=== PATIENT | female | born 1930 | race Caucasian/White ===

== ENCOUNTER 2018-05-06 12:06 | Emergency (ER) | payer MEDICARE ==
[~2018-05-06] VITALS: Ht 157.5 cm; Wt 63.5 kg
[~2018-05-06 12:06] MED LIST: AMLODIPINE BESYL5 MG PO; ASPIRIN CHEW81 MG PO; ASPIRIN81 MG PO; ATENOLOL50 MG PO; CALCIUM 500+D1 EACH; CLOPIDOGREL75 MG PO; COUMADIN1 MG PO; COUMADIN2 MG PO; GLIMEPIRIDE1 MG; KLOR-CON M2020 MEQ PO; LAMOTRIGINE100 MG PO; LEVOTHYROXINE50 MCG PO; LIPITOR20 MG; LISINOPRIL20 MG; LISINOPRIL5 MG PO; LORAZEPAM1 MG PO; LORAZEPAM2 MG/1 M1 PO; MACROBID 100 M100 MG PO; METOPROLOL TART50 MG PO; NORCO 5-325 TA1 EACH PO; NORCO 7.5-3251 EACH PO; PANTOPRAZOLE SO40 MG PO; ULTRAM 50MG50 MG PO; WARFARIN SODIUM3 MG PO; ZOCOR20 MG PO
[2018-05-06 13:18] LABS: CLARITY,URINE HAZY (CLEAR); COLOR,URINE YELLOW (YELLOW); LEUKOCYTE ESTERASE ,URINE NEGATIVE (NEGATIVE); NITRITE,URINE NEGATIVE (NEGATIVE)
[2018-05-06 13:19] LABS: BILIRUBIN,URINE NEGATIVE (NEGATIVE); KETONES,URINE NEGATIVE (NEGATIVE); PROTEIN,URINE DIPSTICK NEGATIVE (NEGATIVE); URINE UROBILINOGEN 0.2 mg/dL (0.2 - 1)
[2018-05-06] MEDS ORDERED: ONDANSETRON HCL INJ 2 MG/ML VIAL IV STA (13:31)
[2018-05-06 13:36] LABS: BACTERIA,URINE FEW /HPF; EPITHELIAL CELLS,URINE FEW /LPF; WBC,URINE (MAN) 0-5 /HPF (0-5)
--- NOTE | 2018-05-06 13:40 | Diagnostic Imaging Report ---
Thoracic Spine - 2 view(s), lumbar spine 3 views HISTORY: Pain COMPARISON: None FINDINGS: Thoracic spine: Superimposed structures and attenuation partially limit bone detail. The upper thoracic spine and cervicothoracic junction is not well visualized. Thoracic kyphosis. Generalized osteopenia. No displaced fracture or compression deformity is identified. 9 mm calcific density projected on the upper left flank. Lumbar spine: There are 5 nonrib-bearing lumbar-type vertebral bodies. Mild anterior wedge deformity of T12 best seen on the lateral view of the lumbar spine may reflect mild compression fracture. Lumbar vertebral body heights are maintained. IMPRESSION: Mild anterior compression deformity of T12 of uncertain age. Correlate for upper lumbar/lower thoracic spine pain. Signed by: Dr. Brando Miller M.D. on 05/06/2018 1:37 PM
[2018-05-06] MEDS ORDERED: HYDROMORPHONE 1MG/1ML INJ IV ONE ×2 (14:00→14:30)
[2018-05-06] MEDS ORDERED: DIAZEPAM 2 MG TAB PO ONE (14:00)
== END 2018-05-06 15:19 | disposition home or self-care (01) ==
LOC: ER 12:06
DX: M54.5 Low back pain (principal); S39.012A Strain of muscle, fascia and tendon of lower back, initial encounter; M54.6 Pain in thoracic spine; S23.3XXA Sprain of ligaments of thoracic spine, initial encounter; G89.29 Other chronic pain
CPT/HCPCS: 72070; 72100; 81001; 87086; 99284; J2405; J1170

== ENCOUNTER → 2018-11-19 | Outpatient (CLI) | payer MEDICARE ==
--- NOTE | 2018-11-19 12:27 | Diagnostic Imaging Report ---
EXAMINATION: PA and lateral views of the chest. COMPARISON: Thoracic spine radiographs 05/16/2018 CLINICAL HISTORY: COPD DISCUSSION: The lungs remain hyperinflated with scattered foci of linear opacity in the peripheral lungs likely age-related fibrotic changes. Heart size is at the upper limits of normal with prominence of the central pulmonary arteries and tortuous thoracic aorta. Interval progression of a now moderate anterior compression deformity of the lower thoracic spine, likely T11 or T12. Remaining osseous structures are otherwise intact. IMPRESSION: Pulmonary hyperinflation compatible with COPD. Suspected superimposed age-related fibrotic changes. Cardiomegaly with enlargement of the central pulmonary arteries suggestive of underlying pulmonary hypertension. Interval progression of now moderate lower thoracic spine compression fracture. Correlate for point tenderness. Signed by: Dr. Mariusz Danielle M.D. on 11/19/2018 12:24 PM
== END ==
LOC: RAD 11:45
PROVIDERS: ATTEND Family Medicine
DX: J44.9 Chronic obstructive pulmonary disease, unspecified (principal)
CPT/HCPCS: 71046

== ENCOUNTER 2019-02-20 19:41 | Emergency (ER) | payer MEDICARE ==
[~2019-02-20] VITALS: Ht 157.5 cm; Wt 63.5 kg
--- OUTSIDE RECORDS SUMMARY | 2019-02-20 19:46 | XMS REPORT | Clinical Summary ---
Author Author PALAK [facility] Address Unknown Phone Unavailable Care Team Providers Care Customs Compliance Analyst Name Role Phone Shon Galan MD PCP Allergies Comments Active Allergy Reactions Severity Noted Date Ciprocinonide Rash High 04/17/2013 Ciprofloxacin Rash High 05/31/2014 Meperidine 08/19/2014 THIS IS NOT AN ALLERGY! Patient tolerated during admission of 08/16/17 Metoprolol 08/19/2014 Sotalol 08/19/2014 Sulfa (Sulfonamide Anaphylaxis, High 04/17/2013 Antibiotics) Swelling Unknown Tetanus Vaccines And Other (See High 05/31/2014 Toxoid Comments) Medications End Date Status Medication Sig Dispensed Refills Start Date Active levothyroxine (SYNTHROID, Take 100 mcg 0 LEVOTHROID) 50 MCG tablet by mouth daily . Active LORazepam (ATIVAN) 2 MG Take 2 mg by 0 tablet mouth nightly. Active simvastatin (ZOCOR) 20 MG Take 20 mg by 0 tablet mouth nightly. Active lisinopril Take 5 mg by 0 (PRINIVIL,ZESTRIL) 10 MG mouth 2 (two) tablet times daily . Active warfarin (COUMADIN) 2 MG Take 1 tablet 30 tablet 0 tablet (2 mg total) 7 by mouth daily. Active melatonin 3 mg Tab tablet Take 1 tablet 10 tablet 0 (3 mg total) 7 by mouth every night as needed. Active potassium chloride SA Take 30 mEq 0 (K-DUR,KLOR-CON) 10 MEQ by mouth tablet daily. Active amLODIPine (NORVASC) 5 MG Take 5 mg by 0 tablet mouth daily. Active atenolol (TENORMIN) 25 MG Take 25 mg by 0 tablet mouth daily. Active HYDROcodone-acetaminophen TAKE ONE (1) 0 (NORCO 7.5-325) 7.5-325 TABLET(S) BY 8 mg per tablet MOUTH FOUR TIMES A DAY NEEDED. Active furosemide (LASIX) 40 MG Take 40 mg by 0 tablet mouth daily. Active pantoprazole (PROTONIX) Take 40 mg by 0 40 MG tablet mouth 2 (two) times daily. 02/28/2018 Discontinued rOPINIRole (REQUIP) 0.25 Take 1 tablet 30 tablet 0 MG tablet (0.25 mg 7 total) by mouth nightly. 08/14/2018 furosemide (LASIX) 40 MG Take 1 tablet 30 tablet 0 tablet (40 mg total) 7 by mouth daily. 02/28/2018 Discontinued pantoprazole (PROTONIX) Take 2 60 tablet 0 20 MG tablet tablets (40 7 mg total) by mouth 2 (two) times daily. 02/28/2018 Discontinued ranolazine (RANEXA) 500 Take 1 tablet 60 tablet 0 MG 12 hr tablet (500 mg 7 total) by mouth 2 (two) times daily. 02/28/2018 Discontinued enoxaparin (LOVENOX) 100 Inject 0 mg/mL Syrg subcutaneousl y. Active Problems Problem Noted Date Atypical chest pain 02/28/2018 Abnormal nuclear stress test 02/28/2018 Chronic diastolic CHF (congestive heart failure) 08/30/2017 Iron deficiency anemia 08/30/2017 RLS (restless legs syndrome) 08/30/2017 Chronic low back pain 08/30/2017 COPD (chronic obstructive pulmonary disease) 04/20/2015 Abnormal echocardiogram 08/20/2014 Overview: Dilated LA (4.5 cm, 78 ml), calcified aortic root, borderline LVH (1.1 cm LV septum), mild AI, mild MR, mild TR, SPAP=24-30 mmHg, LVEF=55-60% (04/22/14). Bilateral carotid artery disease 08/20/2014 Overview: Soft plaque in ICA bilaterally. R: 50-79% reduction, 104/31 cm/s. L: 16-49% reduction, 49/11 cm/s. (4/18/14). Chest pain 07/31/2014 Hypothyroidism 01/26/2014 Atrial fibrillation 01/23/2014 CAD (coronary artery disease) 04/17/2013 Angina, class III 04/09/2013 Abnormal nuclear cardiac imaging test 03/18/2013 Overview: Mild ischemia in the Basal Inferolateral region. The defect is small and of questionable significance. Post stress LV is moderately enlarged in size. Post stress EF=63%. (08/04/14). Insomnia Encounters Care Team Description Date Type Specialty Philippe Chapman MD Massumi, MD Bonny Yao Tuan (Alexander) MD Casey Coronary artery disease involving king salmon coronary artery of king salmon heart, angina presence unspecified (Primary Dx); Chest pain, unspecified type; Abdominal discomfort 08/29/2018 Emergency Cardiology - 08/30/2018 08/29/2018 Orders Only General Internal Medicine 08/29/2018 Travel Mando Osuna MD L CATH & CORONARY ANGIOS 02/28/2018 Surgery Mando Osuna MD Abnormal echocardiogram 02/28/2018 Hospital Encounter Mando Osuna MD 02/23/2018 Orders Only Cardiology after 02/19/2018 Immunizations Name Dates Previously Given Next Due Influenza Four-QIV Non-PF 08/30/2018 5+ YR Influenza High Dose 08/30/2018 (Deferred: - hospital out of med) Preservative Free IM Influenza TIV (IM) 08/30/2014 Pneumococcal Conjugate 10/30/2002 7-Valent Family History Medical History Relation Name Comments Heart disease Father Hypertension Father Cancer Maternal Aunt Coronary artery disease Mother Heart disease Mother Hypertension Mother Relation Name Status Comments Brother Other Father Maternal Aunt Mother Sister Other Social History Date Tobacco Use Types Packs/Day Years Used Never Smoker Smokeless Tobacco: Never Used Alcohol Use Drinks/Week oz/Week Comments No Sex Assigned at Date Recorded Not on file Industry Job Start Date Occupation Not on file Not on file Not on file Travel End Travel History Travel Start No recent travel history available. Last Filed Vital Signs Time Taken Vital Sign Reading 08/30/2018 11:00 AM CDT Blood Pressure 133/65 08/30/2018 11:00 AM CDT Pulse 72 08/30/2018 11:00 AM CDT Temperature 36.8 C (98.3 F) 08/30/2018 11:00 AM CDT Respiratory Rate 18 08/30/2018 11:00 AM CDT Oxygen Saturation 99% - Inhaled Oxygen - Concentration 08/30/2018 8:31 AM CDT Weight 64.5 kg (142 lb 3.2 oz) 08/29/2018 8:35 PM CDT Height 160 cm (5' 3") 08/30/2018 8:31 AM CDT Body Mass Index 25.19 Plan of Treatment Health Maintenance Due Date Last Done Comments INFLUENZA VACCINE 07/30/2018 08/30/2018 Implants Device Identifier Shelf Expiration Date Model / Serial / Lot Implanted Type Area Manufactur er 05/29/2018 [id number] / / [id number] Device Clsr Angio-Seal Vip 6fr [employer] [id number] - [id number] ular MED:CARDIA Implanted: Qty: 1 on 08/18/2017 by Mando Morgan MD 11/29/2018 [id number] / / [id number] Device Clsr Angio-Seal Vip 6fr Cardiovasc Right: [employer]in [employer] [id number] - [id number] ular MED:CARDIA Implanted: Qty: 1 on 02/28/2018 by Mando Morgan MD Procedures Comments Procedure Name Priority Date/Time Associated Diagnosis RHYTHM STRIP - SCAN 08/31/2018 12:00 PM CDT CBC W/PLT COUNT & AUTO Routine 08/30/2018 DIFFERENTIAL 5:54 AM CDT PROTHROMBIN TIME/INR Routine 08/30/2018 5:54 AM CDT CBC W/PLT COUNT & AUTO Routine 08/30/2018 DIFFERENTIAL 5:54 AM CDT MAGNESIUM Routine 08/30/2018 5:54 AM CDT BASIC METABOLIC PANEL (7) Routine 08/30/2018 5:54 AM CDT TROPONIN I Routine 08/30/2018 12:35 AM CDT CREATINE KINASE (CK), Routine 08/30/2018 TOTAL AND MB 12:35 AM CDT ECG 12-LEAD Routine 08/29/2018 7:03 PM CDT Procedure Note - Interface, External Ris In - 08/29/2018 9:36 PM CDT Ventricula r Rate 70 BPM Atrial Rate 300 BPM QRS Duration 78 ms Q-T Interval 418 ms QTC Calculatio n(Bazett) 451 ms R [place] 13 degrees T [place] 31 degrees Atrial fibrillati on with premature ventricula r or aberrantly conducted complexes Abnormal ECG When compared with ECG of 8 12:34, No significan t change was found ECG 12-LEAD STAT 08/29/2018 7:03 PM CDT CREATINE KINASE (CK), Routine 08/29/2018 TOTAL AND MB 6:59 PM CDT TROPONIN I Routine 08/29/2018 6:[address] ABDOMEN/PELVIS WITHOUT STAT 08/29/2018 IV CONTRAST 4:16 PM CDT ED ECG INTERPRETATION Routine 08/29/2018 1:44 PM CDT CBC W/PLT COUNT & AUTO STAT 08/29/2018 DIFFERENTIAL 1:29 PM CDT PT/APTT STAT 08/29/2018 1:29 PM CDT B-TYPE NATRIURETIC FACTOR STAT 08/29/2018 (BNP) 1:29 PM CDT CBC W/PLT COUNT & AUTO STAT 08/29/2018 DIFFERENTIAL 1:29 PM CDT TROPONIN I STAT 08/29/2018 1:29 PM CDT MAGNESIUM STAT 08/29/2018 1:29 PM CDT BASIC METABOLIC PANEL (7) STAT 08/29/2018 1:29 PM CDT XR CHEST 2 VIEWS STAT 08/29/2018 1:16 PM CDT ECG 12-LEAD STAT 08/29/2018 12:34 PM CDT VASCULAR DIAGRAM -SCAN 04/26/2018 11:41 AM CDT CARDIAC CATH REPORT - 03/01/2018 SCAN 8:40 PM CDT L CATH & CORONARY ANGIOS 02/28/2018 Abnormal cardiac function 11:32 AM CDT test Acute chest pain Case Notes (2) Case, 6T OP, POSS PCI ECG 12-LEAD Routine 02/28/2018 10:37 AM CDT Procedure Note - Interface, External Ris In - 02/28/2018 11:19 AM CDT Ventricula r Rate 77 BPM Atrial Rate 131 BPM QRS Duration 82 ms Q-T Interval 396 ms QTC Calculatio n(Bazett) 448 ms R [place] 42 degrees T [place] 25 degrees Atrial fibrillati on Abnormal ECG When compared with ECG of 7 03:34, No significan t change was found ECG 12-LEAD Routine 02/28/2018 10:37 AM CDT PROTHROMBIN TIME/INR Routine 02/28/2018 10:27 AM CDT after 02/19/2018 Results * RHYTHM STRIP - SCAN (08/31/2018 12:00 PM CDT) Narrative Performed At * CBC with platelet count + automated diff (08/30/2018 5:54 AM CDT) Only the most recent of 2 results within the time period is included. WBC 4.0 3.5 - 10.5 K/L [facility] RBC 3.63 (L) 3.93 - 5.22 M/L [facility] Hemoglobin 11.7 11.2 - 15.7 GM/DL [facility] Hematocrit 36.7 34.1 - 44.9 % [facility] MCV 101.1 (H) 79.4 - 94.8 fL [facility] MCH 32.2 25.6 - 32.2 pg [facility] MCHC 31.9 (L) 32.2 - 35.5 GM/DL [facility] RDW 13.7 11.7 - 14.4 % [facility] Platelets 116 (L) 150 - 450 K/CU MM [facility] MPV 10.4 9.4 - 12.3 fL [facility] nRBC 0 0 - 0 /100 WBC [facility] % Neutros 51 % [facility] % Lymphs 28 % [facility] % Monos 17 % [facility] % Eos 3 % [facility] % Baso 1 % [facility] # Neutros 2.04 1.56 - 6.13 K/L [facility] # Lymphs 1.14 (L) 1.18 - 3.74 K/L [facility] # Monos 0.67 (H) 0.24 - 0.36 K/L [facility] # Eos 0.13 0.04 - 0.36 K/L [facility] # Baso 0.03 0.01 - 0.08 K/L [facility] Immature 0 0 - 1 % [facility] Granulocytes-Relative [facility] Specimen Blood Performing Organization Address City/[facility]/Zipcode Phone Number [facility] [address] [place] [address] [facility] * Prothrombin time/INR (08/30/2018 5:54 AM CDT) Only the most recent of 2 results within the time period is included. Protime 26.3 (H) 11.7 - 14.7 seconds [facility] INR 2.4 <=5.9 [facility] Specimen Blood Narrative Performed At RECOMMENDED COUMADIN/WARFARIN INR THERAPY RANGES [facility] STANDARD DOSE: 2.0 - 3.0 Includes: PROPHYLAXIS for venous thrombosis, [facility] systemic embolization; TREATMENT for venous thrombosis and/or pulmonary embolus. HIGH RISK: Target INR is 2.5-3.5 for patients with mechanical heart valves. Performing Organization Address City/[facility] Phone Number [facility] [address] [place] [address] [facility] * Magnesium (08/30/2018 5:54 AM CDT) Only the most recent of 2 results within the time period is included. Magnesium 2.0 1.6 - 2.6 mg/dL [facility] Specimen Blood Performing Organization Address City/[facility] Phone Number [facility] [address] [place] [address] [phone] * Basic Metabolic Panel (08/30/2018 5:54 AM CDT) Only the most recent of 2 results within the time period is included. Sodium 135 (L) 136 - 145 meq/L [facility] Potassium 4.0 3.5 - 5.1 meq/L [facility] Chloride 104 98 - 107 meq/L [facility] CO2 22 22 - 29 meq/L [facility] BUN 19 7 - 21 mg/dL [facility] Creatinine 0.78 0.57 - 1.25 mg/dL [facility] Glucose 94 70 - 105 mg/dL [facility] Calcium 8.8 8.4 - 10.2 mg/dL [facility] EGFR 70Comment: ESTIMATED GFR IS mL/min/1.73 sq m [facility] NOT ACCURATE CREATININE [facility] CLEARANCE IN PREDICTING GLOMERULAR FILTRATION RATE. ESTIMATED GFR IS NOT APPLICABLE FOR DIALYSIS PATIENTS. Specimen Blood Performing Organization Address City/[facility] Phone Number [facility] [address] [place] [phone] [place] [address] * Troponin I (08/30/2018 12:35 AM CDT) Only the most recent of 3 results within the time period is included. Troponin I 0.04 (H) 0.00 - 0.03 ng/mL [facility] Specimen Blood Narrative Performed At Troponin I (TnI) levels must be interpreted in the context of the presenting [facility] symptoms and the clinical findings. Elevated TnI levels indicate myocardial [facility] damage, but are not specific for ischemic heart disease. Elevated TnI levels are seen in patients with other cardiac conditions (including myocarditis and congestive heart failure), and slight TnI elevations occur in patients with other conditions, including sepsis, renal failure, acidosis, acute neurological disease, and persistent tachyarrhythmia. Performing Organization Address City/[facility]/Zipcode Phone Number [facility] [address] [place] [phone] [facility] * Creatine Kinase (CK), Total and MB (08/30/2018 12:35 AM CDT) Only the most recent of 2 results within the time period is included. Total CK 69 29 - 200 U/L [facility] CK-MB 1.3 0.0 - 6.6 ng/mL [facility] MB Relative Index 1.9 % [facility] Specimen Blood Narrative Performed At CK-MB Reference Range: [facility] <6.7Normal [facility] 6.7-10.0Borderline >10.0 Abnormal Performing Organization Address City/[facility] Phone Number [facility] [address] [place], [place] [id number] [phone] [place] [address] * ECG 12 lead (08/29/2018 7:03 PM CDT) Only the most recent of 3 results within the time period is included. Specimen Narrative Performed At Ventricular Rate 70 BPM GE MUSE Atrial Rate 300 BPM QRS Duration 78 ms Q-T Interval 418 ms QTC Calculation(Bazett) 451 ms R [place] 13 degrees T [place] 31 degrees Atrial fibrillation with premature ventricular or aberrantly conducted complexes Abnormal ECG When compared with ECG of 29-AUG-2018 12:34, No significant change was found Confirmed by Ashley ALEXANDRA BASANT ([id number]) on 08/30/2018 8:16:21 AM Procedure Note Interface, External Ris In - 08/30/2018 8:16 AM CDT Ventricular Rate 70 BPM Atrial Rate 300 BPM QRS Duration 78 ms Q-T Interval 418 ms QTC Calculation(Bazett) 451 ms R [place] 13 degrees T [place] 31 degrees Atrial fibrillation with premature ventricular or aberrantly conducted complexes Abnormal ECG When compared with ECG of 29-AUG-2018 12:34, No significant change was found Confirmed by Ashley ALEXANDRA BASANT ([id number]) on 08/30/2018 8:16:21 AM Performing Organization Address City/State/Zipcode Phone Number [facility] * CT abdomen/pelvis without iv contrast (08/29/2018 4:16 PM CDT) Specimen Narrative Performed At FINAL REPORT [email or web address] CT of the abdomen and pelvis, without contrast Clinical History:Abdominal pain, unspecified abd pain Technique: CT of the abdomen and pelvis is performed without intravenous contrast administration. This exam was performed according to our departmental dose optimization program which includes automated exposure control, adjustment of the mA and/or kV according to patient's size and/or use of iterative reconstructive technique. Comparison Film:August 16, 2017 and April 04, 2017 Discussion: Multiple thin-walled cysts are present at the lung bases, similar to the prior exam. Tiny calcified granulomas are present within the liver, and spleen, suggestive of prior granulomatous disease. Status post cholecystectomy. CBD is enlarged, measuring up to 15 mm, but unchanged from the previous studies. No liver lesion identified on this noncontrast exam. The pancreas, adrenal glands have a unremarkable unenhanced appearance. Kidneys demonstrate no hydronephrosis, or radiopaque stone. Two stable hypodensities at the upper pole of the right kidney likely represent cysts, one is slightly complex with wall calcification. No evidence of bowel obstruction, or abnormal bowel wall thickening, although evaluation is suboptimal in the absence of IV and oral contrast. Normal appendix. There is colonic diverticulosis, without evidence of acute diverticulitis. In the pelvis, bladder is unremarkable. Uterus is absent. No adnexal mass. There is no ascites, free air, or lymphadenopathy. Osseous structures demonstrate degenerative changes. There is a wedge-shaped compression deformity of T11 vertebral body, which is new since July,. Impression: No acute process identified in the abdomen or pelvis. Colonic diverticulosis, no evidence of acute diverticulitis. Superior endplate compression fracture of T11 vertebral body is new since July,, but acuity is uncertain. Status post cholecystectomy. Stable appearance of CBD dilatation. Status post hysterectomy. Thin-walled pulmonary cysts. Two stable right renal cysts, one is slightly complex with calcified pillai. Signed: Onelia Rutherford MD Report Verified Date/Time:08/29/2018 16:54:56 Reading Location: [facility] [id number] Ortho Consult Reading Room Procedure Note Interface, External Ris In - 08/29/2018 4:57 PM CDT FINAL REPORT CT of the abdomen and pelvis, without contrast Clinical History: Abdominal pain, unspecified abd pain Technique: CT of the abdomen and pelvis is performed without intravenous contrast administration. This exam was performed according to our departmental dose optimization program which includes automated exposure control, adjustment of the mA and/or kV according to patient's size and/or use of iterative reconstructive technique. Comparison Film: August 16, 2017 and April 04, 2017 Discussion: Multiple thin-walled cysts are present at the lung bases, similar to the prior exam. Tiny calcified granulomas are present within the liver, and spleen, suggestive of prior granulomatous disease. Status post cholecystectomy. CBD is enlarged, measuring up to 15 mm, but unchanged from the previous studies. No liver lesion identified on this noncontrast exam. The pancreas, adrenal glands have a unremarkable unenhanced appearance. Kidneys demonstrate no hydronephrosis, or radiopaque stone. Two stable hypodensities at the upper pole of the right kidney likely represent cysts, one is slightly complex with wall calcification. No evidence of bowel obstruction, or abnormal bowel wall thickening, although evaluation is suboptimal in the absence of IV and oral contrast. Normal appendix. There is colonic diverticulosis, without evidence of acute diverticulitis. In the pelvis, bladder is unremarkable. Uterus is absent. No adnexal mass. There is no ascites, free air, or lymphadenopathy. Osseous structures demonstrate degenerative changes. There is a wedge-shaped compression deformity of T11 vertebral body, which is new since July,. Impression: No acute process identified in the abdomen or pelvis. Colonic diverticulosis, no evidence of acute diverticulitis. Superior endplate compression fracture of T11 vertebral body is new since July,, but acuity is uncertain. Status post cholecystectomy. Stable appearance of CBD dilatation. Status post hysterectomy. Thin-walled pulmonary cysts. Two stable right renal cysts, one is slightly complex with calcified pillai. Signed: Onelia Rutherford MD Report Verified Date/Time: 08/29/2018 16:54:56 Reading Location: [facility] B1 [id number] Ortho Consult Reading Room Performing Organization Address City/[facility] Phone Number [facility] * ECG/EKG Interpretation (08/29/2018 1:44 PM CDT) Narrative Performed At Philippe Chapman MD 08/29/20182:16 PM ECG/EKG Interpretation Date/Time: 08/29/2018 2:13 PM Performed by: Philippe Chapman MD Authorized by: Philippe Chapman MD The ECG was interpreted by ED physician. The ECG is interpreted as atrial fibrillation. Ectopy noted: PVCs. Rate is normal rate. Clinical Impression: non-specific ECG * PT/PTT (08/29/2018 1:29 PM CDT) Protime 23.6 (H) 11.7 - 14.7 seconds [facility] INR 2.1 <=5.9 [facility] PTT 30.6 22.5 - 36.0 seconds [facility] Specimen Blood Narrative Performed At RECOMMENDED COUMADIN/WARFARIN INR THERAPY RANGES [facility] STANDARD DOSE: 2.0 - 3.0 Includes: PROPHYLAXIS for venous thrombosis, [facility] systemic embolization; TREATMENT for venous thrombosis and/or pulmonary embolus. HIGH RISK: Target INR is 2.5-3.5 for patients with mechanical heart valves. Performing Organization Address [facility] Phone Number [facility] [address] [place] [address] [facility] * B-type Natriuretic Factor (BNP) (08/29/2018 1:29 PM CDT) BNP 620 (H) 0 - 100 pg/mL [facility] Specimen Blood Performing Organization Address [facility] Phone Number [facility] [address] [place] [address] [facility] * XR chest 2 views (08/29/2018 1:16 PM CDT) Specimen Narrative Performed At FINAL REPORT [facility] EXAM: Frontal and lateral chest radiograph HISTORY PROVIDED: Chest pain COMPARISON: 08/12/2017 IMPRESSION: Streaky opacities in the lingula likely represents atelectasis or scarring. The lungs are otherwise clear. No pneumothorax or significant pleural fluid. The cardiac silhouette remains enlarged. The thoracic aorta is tortuous/ectatic and demonstrates atherosclerotic calcification. Incidentally noted is a compression deformity of a lower thoracic vertebral body of indeterminant age. Severe thoracic kyphosis is again noted with degenerative changes. Signed: Jose A Acosta MD Report Verified Date/Time:08/29/2018 14:06:34 [facility] Procedure Note Interface, External Ris In - 08/29/2018 2:51 PM CDT FINAL REPORT EXAM: Frontal and lateral chest radiograph HISTORY PROVIDED: Chest pain COMPARISON: 08/12/2017 IMPRESSION: Streaky opacities in the lingula likely represents atelectasis or scarring. The lungs are otherwise clear. No pneumothorax or significant pleural fluid. The cardiac silhouette remains enlarged. The thoracic aorta is tortuous/ectatic and demonstrates atherosclerotic calcification. Incidentally noted is a compression deformity of a lower thoracic vertebral body of indeterminant age. Severe thoracic kyphosis is again noted with degenerative changes. Signed: Jose A Acosta MD Report Verified Date/Time: 08/29/2018 14:06:34 Reading Location: [facility] Mammo Reading Room Performing Organization Address City/State/Zipcode Phone Number [facility] * VASCULAR DIAGRAM -SCAN (04/26/2018 11:41 AM CDT) Narrative Performed At * CARDIAC CATH REPORT - SCAN (03/01/2018 8:40 PM CDT) Narrative Performed At after 02/19/2018 Insurance Payer Benefit Subscriber ID Type Phone Address Plan / Group MEDICARE MEDICARE A xxxxxxxxxxx Medicare B MCR SUPPLEMENT/INDIVIDUAL AARP/UNITE xxxxxxxxxxx [facility] D HEALTHCARE Advance Directives For more information, please contact: [facility] [address] [facility] [place] [address] Date Inactivated Comments Code Status Date Activated Full Code 08/29/2018 5:49 PM This code status was determined by: Patient 02/28/2018 6:14 PM Full Code 02/28/2018 9:43 AM This code status was determined by: Patient 08/19/2017 6:55 PM Full Code 08/12/2017 7:46 AM This code status was determined by: Patient 04/06/2017 4:32 PM Full Code 04/03/2017 5:16 PM This code status was determined by: Patient 08/22/2014 8:06 PM Full Code 08/22/2014 11:00 AM This code status was determined by: Patient
--- OUTSIDE RECORDS SUMMARY | 2019-02-20 19:46 | XMS REPORT ---
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 Role Phone Raúl Dias CP Unavailable Allergies No Known Allergies Problems Problem Type Condition Code Onset Dates Condition Status Problem Other forms of systemic lupus erythematosus M32.8 Active Problem Personal history of (healed) osteoporosis fracture Z87.310 Active Problem Right knee pain M25.561 Active Problem Fatigue R53.83 Active Problem Vitamin D deficiency E55.9 Active Problem Other fpc (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 Z79.899 Active Problem Vitamin D deficiency, unspecified E55.9 Active Problem Lumbago M54.5 Active Problem Age-related osteoporosis without current pathological fracture M81.0 Active Medications Medication Code System Code Instructions Start Date End Date Status Dosage PredniSONE [facility] 48566927788 10 MG Orally Once a day Oct 03, 2017 Dec 02, 2017 Active 1 tablet Results No Known Results Summary Purpose eClinicalWorks Submission
--- OUTSIDE RECORDS SUMMARY | 2019-02-20 19:46 | XMS REPORT ---
Author Author Ritu Vu [facility] eClinicalWorks Address Unknown Phone Unavailable Care Team Providers Care Consultant Technology Name Role Phone Ritu Vu Unavailable Allergies, Adverse Reactions, Alerts Substance Reaction Event Type tetanus Info Not Available Non Drug Allergy demoral Info Not Available Non Drug Allergy sulfa Info Not Available Non Drug Allergy cipro Info Not Available Non Drug Allergy Problems Problem Type Condition Code Onset Dates Condition Status Problem Personal history of (healed) osteoporosis fracture Z87.310 Active Problem Vitamin D deficiency, unspecified E55.9 Active Problem Other forms of systemic lupus erythematosus M32.8 Active Assessment Other forms of systemic lupus erythematosus M32.8 Active Assessment Polymyalgia rheumatica M35.3 Active Problem Vitamin D deficiency E55.9 Active Problem Right knee pain M25.561 Active Problem Polymyalgia rheumatica M35.3 Active Problem Age-related osteoporosis without current pathological fracture M81.0 Active Problem Other detention (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 Z79.899 Active Problem Fatigue R53.83 Active Problem Lumbago M54.5 Active Medications Medication Code System Code Instructions Start Date End Date Status Dosage Amlodipine Besylate [facility] 26581071846 5 MG Orally Once a day Active 1 tablet Ranexa [facility] 85925325521 500 MG Orally Once a day Active 1 tablet Amiodarone HCl ND 29137405866 200 MG Orally Once a day Active 1 tablet Simvastatin ND 23758127802 20 MG Orally Once a day Active 1 tablet every evening Lorazepam [facility] 52752872614 2 mg Once at bed time Active 1 Tablet Lisinopril ND 77205356246 5 MG Orally Once a day Active 1 tablet Furosemide ND 48659577130 40 MG Orally Once a day Active 1 tablet Metoprolol Tartrate [facility] 15793206028 25 MG Orally Once a day Active 1 tablet PredniSONE [facility] 89999327173 10 MG Orally Once a day Oct 03, 2017 Dec 02, 2017 Active 1 tablet Calcium 600 + D [facility] 72492330419 600-200 MG-UNIT Orally Once a day Active 2 tablets Warfarin Sodium [facility] 67145235767 3.5 MG Orally Once a day Active 1 tablet Levothyroxine Sodium [facility] 43101159371 75 MCG Orally Once a day Active 1 tablet Hydrocodone-Acetaminophen [facility] 73500200106 7.5-325 MG Orally every 6 hrs Nov 24, 2017 Active 1 tablet as needed Vital Signs Date/Time: Oct 25, 2017 BMI 25.97 Index Weight 142 lbs Height 62 in Temperature 97.4 F Cardiac Monitoring Heart Rate 72 /min Blood Pressure Diastolic 78 mm Hg Blood Pressure Systolic 120 mm Hg Results No Known Results Summary Purpose eClinicalWorks Submission
--- OUTSIDE RECORDS SUMMARY | 2019-02-20 19:46 | XMS REPORT ---
Author Author Raúl Dias [facility] eClinicalWorks Address Unknown Phone Unavailable Care Team Providers Care Cloth Measurer Name Role Phone Raúl Dias CP Unavailable Allergies No Known Allergies Problems Problem Type Condition Code Onset Dates Condition Status Problem Personal history of (healed) osteoporosis fracture Z87.310 Active Problem Vitamin D deficiency, unspecified E55.9 Active Problem Other forms of systemic lupus erythematosus M32.8 Active Problem Vitamin D deficiency E55.9 Active Problem Right knee pain M25.561 Active Problem Polymyalgia rheumatica M35.3 Active Problem Age-related osteoporosis without current pathological fracture M81.0 Active Problem Other [facility]iary (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 Z79.899 Active Problem Fatigue R53.83 Active Problem Lumbago M54.5 Active Medications Medication Code System Code Instructions Start Date End Date Status Dosage PredniSONE [facility] 19499976662 10 MG Orally as directed Oct 03, 2017 Nov 25, 2017 Active 2 tablets once a day for 2 weeks, then 1 tablet per day thereafter Results No Known Results Summary Purpose eClinicalWorks Submission
--- OUTSIDE RECORDS SUMMARY | 2019-02-20 19:46 | XMS REPORT | Continuity of Care Document ---
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 Active Problem 02/05/2019 Raul Dias Vitamin D deficiency, unspecified Active Problem 02/05/2019 Raul Dias Lumbago Active Problem 02/05/2019 Raul Dias Age-related osteoporosis without current pathological fracture Active Problem 02/05/2019 Raul Dias Polymyalgia rheumatica Active Problem 02/05/2019 Raul Dias 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, subsequent encounter Active Problem 02/05/2019 Raul Dietricher Chronic prescription opiate use Active Diagnosis 02/05/2019 Raul Dias Closed wedge compression fracture of twelfth thoracic vertebra, initial encounter Active Diagnosis 06/30/2018 Raul Dias Cystitis, unspecified with hematuria Active Diagnosis 12/23/2017 Raul Arun Muscle spasm Active Diagnosis 11/09/2018 Raul Dias Medications Medication Details Route Status Patient Instructions Ordering Provider Order Date Source PredniSONE 1 tablet Orally Active 5 MG Orally Once a day Vu 09/04/2018 Raul Dias Vitamin D (Ergocalciferol) 1 capsule Orally Active 99814 UNIT Orally Once a week Vu 06/07/2018 Raul Dias PredniSONE 1 tablet Orally Active 5 MG Orally once a day Vu 04/18/2018 Raul Dias PredniSONE 1 tablet Orally Active 5 MG Orally once a day Vu 03/20/2018 Raul Dias Hydrocodone-Acetaminophen 1 tablet as needed Orally Active 7.5- 325 MG Orally every 6 hrs Vu 12/23/2017 Raul Dias Hydrocodone-Acetaminophen 1 tablet as needed Orally Active 7.5- 325 MG Orally every 6 hrs Vu 11/24/2017 Raul Dietricher PredniSONE 1 tablet Orally Active 10 MG Orally once a day [place] 10/03/2017 Raul Dietricher Metoprolol Tartrate 1 tablet Orally Active 25 MG Orally Once a day [place] Raul Dias Levothyroxine Sodium 1 tablet Orally Active 75 MCG Orally Once a day [facility] Dias Furosemide 1 tablet Orally Active 40 MG Orally Once a day [place] Raul Dias Lorazepam 1 Tablet NA Active 2 mg Once at bed time [facility] Dias Warfarin Sodium 1 tablet Orally Active 3.5 MG Orally Once a day [place] Raul Dias Calcium 600 + D 2 tablets Orally Active 600-200 MG-UNIT Orally Once a day [place] Raul Dias Hydrocodone-Acetaminophen 1 tablet as needed Orally Active 7.5- 325 MG Orally every 6 hrs [place] Raul Dietricher Ranexa 1 tablet Orally Active 500 MG Orally Once a day [facility] Lisinopril 1 tablet Orally Active 5 MG Orally Once a day [place] Raul Dias Amlodipine Besylate 1 tablet Orally Active 5 MG Orally Once a day [facility] Dias Simvastatin 1 tablet every evening Orally Active 20 MG Orally Once a day [facility] Amiodarone HCl 1 tablet Orally Active 200 MG Orally Once a day [place] Raul Dias PredniSONE 1 tablet Orally Active 5 MG Orally Once a day [facility] Atenolol 1 tablet Orally Active 25 MG Orally Once a day [facility] Dias Vitamin D (Ergocalciferol) as directed Orally Active 2000 UNIT Orally [place] Raul Dias Vitamin D (Ergocalciferol) 1 capsule Orally Active 11206 UNIT Orally Once a week [place] Raul Dias Allergies, Adverse Reactions, Alerts Substance Category Reaction Severity Reaction type Status Date Reported Comments Source tetanus Adverse Reaction Info Not Available Adverse Reaction Active 01/30/2019 Raul Dias demoral Adverse Reaction Info Not Available Adverse Reaction Active 01/30/2019 Raul Dias sulfa Adverse Reaction Info Not Available Adverse Reaction Active 01/30/2019 Raul Dias cipro Adverse Reaction Info Not Available Adverse Reaction Active 01/30/2019 Raul Dietricher Immunizations Immunization Date Given Site Status Last Updated Comments Source Results Order Name Results Value Reference Range Date Interpretation Comments Source Vital Signs Vital Sign Value Date Comments Source Weight 145.7 01/30/2019 Raul Dias Height 61 01/30/2019 Raul Dias Temperature Oral (F) 98.5 F 01/30/2019 Raul Dias Heart Rate 72 01/30/2019 Raul Dias Diastolic (mm Hg) 84 01/30/2019 Raul Dias Systolic (mm Hg) 146 01/30/2019 Raul Dias Weight 145.8 01/01/2019 Raul Dias Height 61 01/01/2019 Raul Dias Temperature Oral (F) 97.0 F 01/01/2019 Raul Dias Heart Rate 72 01/01/2019 Raul Dias Diastolic (mm Hg) 80 01/01/2019 Raul Dias Systolic (mm Hg) 140 01/01/2019 Raul Dias Weight 145.9 11/01/2018 Raul Dias Height 61 11/01/2018 Raul Dias Temperature Oral (F) 96.0 F 11/01/2018 Rual Dias Heart Rate 80 11/01/2018 Raul Dias Diastolic (mm Hg) 78 11/01/2018 Raul Dias Systolic (mm Hg) 112 11/01/2018 Raul Dias Weight 142.5 10/04/2018 Raul Dias Height 62 10/04/2018 Raul Dias Temperature Oral (F) 97.0 F 10/04/2018 Raul Dias Heart Rate 80 10/04/2018 Raul Dias Diastolic (mm Hg) 60 10/04/2018 Raul Dias Systolic (mm Hg) 102 10/04/2018 Raul Dias Weight 141.4 09/04/2018 Raul Dias Height 61 09/04/2018 Raul Dias Temperature Oral (F) 97.4 F 09/04/2018 Raul Dias Heart Rate 68 09/04/2018 Raul Dias Diastolic (mm Hg) 72 09/04/2018 Raul Dias Systolic (mm Hg) 104 09/04/2018 Raul Dias Weight 146 08/07/2018 Raul Dias Height 61 08/07/2018 Raul Dias Temperature Oral (F) 97.2 F 08/07/2018 Raul Dias Heart Rate 64 08/07/2018 Raul Dias Diastolic (mm Hg) 68 08/07/2018 Raul Dias Systolic (mm Hg) 126 08/07/2018 Raul Dias Weight 145 07/10/2018 Raul Dias Height 62 07/10/2018 Raul Dias Temperature Oral (F) 97.2 F 07/10/2018 Raul Dias Heart Rate 74 07/10/2018 Raul Dias Diastolic (mm Hg) 70 07/10/2018 Raul Dias Systolic (mm Hg) 132 07/10/2018 Raul Dias Weight 145.5 06/07/2018 Raul Dias Height 62 06/07/2018 Raul Dias Temperature Oral (F) 97.0 F 06/07/2018 Raul Dias Heart Rate 74 06/07/2018 Raul Dias Diastolic (mm Hg) 70 06/07/2018 Raul Dias Systolic (mm Hg) 110 06/07/2018 Raul Dias Weight 155 05/08/2018 Raul Dias Height 62 05/08/2018 Raul Dias Temperature Oral (F) 96.6 F 05/08/2018 Raul Dias Heart Rate 78 05/08/2018 Raul Dias Diastolic (mm Hg) 60 05/08/2018 Raul Dias Systolic (mm Hg) 102 05/08/2018 Raul Dias Weight 158 03/13/2018 Raul Dias Height 62 03/13/2018 Raul Dias Temperature Oral (F) 96.5 F 03/13/2018 Raul Dias Heart Rate 82 03/13/2018 Raul Dias Diastolic (mm Hg) 80 03/13/2018 Raul Dias Systolic (mm Hg) 118 03/13/2018 Raul Dias Weight 153.1 12/20/2017 Raul Dias Height 62 12/20/2017 Raul Dias Temperature Oral (F) 97.3 F 12/20/2017 Raul Dias Heart Rate 84 12/20/2017 Raul Dias Diastolic (mm Hg) 64 12/20/2017 Raul Dias Systolic (mm Hg) 100 12/20/2017 Raul Dias Weight 151 11/23/2017 Raul Dias Height 62 11/23/2017 Raul Dias Temperature Oral (F) 96.1 F 11/23/2017 Raul Dias Heart Rate 88 11/23/2017 Raul Dias Diastolic (mm Hg) 60 11/23/2017 Raul Dias Systolic (mm Hg) 114 11/23/2017 Raul Dias Weight 142 10/25/2017 Raul Dias Height 62 10/25/2017 Raul Dias Temperature Oral (F) 97.4 F 10/25/2017 Raul Dias Heart Rate 72 10/25/2017 Raul Dias Diastolic (mm Hg) 78 10/25/2017 Raul Dias Systolic (mm Hg) 120 10/25/2017 Raul Dias Weight 145.0 09/26/2017 Raul Dias Height 62.5 09/26/2017 Raul Dias Temperature Oral (F) 96.7 F 09/26/2017 Raul Dias Heart Rate 68 09/26/2017 Raul Dias Diastolic (mm Hg) 72 09/26/2017 Raul Dias Systolic (mm Hg) 104 09/26/2017 Raul Dias Weight 150 08/22/2017 Raul Dias Height 63 08/22/2017 Raul Dias Temperature Oral (F) 96.4 F 08/22/2017 Raul Dias Heart Rate 70 08/22/2017 Raul Dias Diastolic (mm Hg) 70 08/22/2017 Raul Dias Systolic (mm Hg) 102 08/22/2017 Raul Dias Encounters Location Location Details Encounter Type Encounter Number Reason For Visit Attending Provider ADM Date DC Date Status Source Procedures Procedure Code Date Perfomer Comments Source
--- OUTSIDE RECORDS SUMMARY | 2019-02-20 19:46 | XMS REPORT ---
Author Author Ritu Vu [facility] eClinicalWorks Address Unknown Phone Unavailable Care Team Providers Care Back Closer Name Role Phone Ritu Vu CP Unavailable Allergies, Adverse Reactions, Alerts Substance Reaction Event Type tetanus Info Not Available Non Drug Allergy demoral Info Not Available Non Drug Allergy sulfa Info Not Available Non Drug Allergy cipro Info Not Available Non Drug Allergy Problems Problem Type Condition Code Onset Dates Condition Status Problem Other forms of systemic lupus erythematosus M32.8 Active Problem Other fdc (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 Z79.899 Active Problem Vitamin D deficiency, unspecified E55.9 Active Problem Polymyalgia rheumatica M35.3 Active Problem Vitamin D deficiency E55.9 Active Problem 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, subsequent encounter M80.00XD Active Problem Lumbago M54.5 Active Problem Age-related osteoporosis without current pathological fracture M81.0 Active Problem Right knee pain M25.561 Active Problem Fatigue R53.83 Active Assessment Age-related osteoporosis without current pathological fracture M81.0 Active Assessment Other fdc (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 Z79.899 Active Assessment Polymyalgia rheumatica M35.3 Active Assessment Chronic prescription opiate use Z79.891 Active Assessment Other forms of systemic lupus erythematosus M32.8 Active Problem Personal history of (healed) osteoporosis fracture Z87.310 Active Medications Medication Code System Code Instructions Start Date End Date Status Dosage Levothyroxine Sodium [facility] 69539695863 75 MCG Orally Once a day Active 1 tablet Vitamin D (Ergocalciferol) [facility] 37178332002 2000 UNIT Orally Active as directed PredniSONE ND 63885833640 5 MG Orally Once a day Active 1 tablet Hydrocodone-Acetaminophen [facility] 27977286745 7.5-325 MG Orally every 6 hrs Active 1 tablet as needed Lisinopril ND 05992569523 5 MG Orally Once a day Active 1 tablet Furosemide ND 54871157569 40 MG Orally Once a day Active 1 tablet Simvastatin ND 30240905482 20 MG Orally Once a day Active 1 tablet every evening Atenolol [facility] 40474377231 25 MG Orally Once a day Active 1 tablet Warfarin Sodium [facility] 26141359189 3.5 MG Orally Once a day Active 1 tablet Lorazepam [facility] 76978809117 2 mg Once at bed time Active 1 Tablet Vital Signs Date/Time: January 01, 2019 BMI 27.55 Index Weight 145.8 lbs Height 61 in Temperature 97.0 F Cardiac Monitoring Heart Rate 72 /min Blood Pressure Diastolic 80 mm Hg Blood Pressure Systolic 140 mm Hg Results Name Result Date Reference Range Unit Abnormality Flag PROVIDED MEDICATIONS ----PROVIDED MEDICATIONS N/A 20190101 109 SPECIMEN VALIDITY TESTING URINALYSIS WITH MICROSCOPIC ----BILIRUBIN NEGATIVE 20190101 NEGATIVE ----OCCULT BLOOD 1+ 20190101 NEGATIVE A ----UROBILINOGEN <2.0 65599041 <=2.0 MG/DL ----RED BLOOD CELLS 5-10 39627352 0-5 /HPF A ----WHITE BLOOD CELLS 0-5 95663942 0-5 /HPF ----COLOR STRAW 20190101 YELLOW-STRAW ----BACTERIA 1+ 15443549 NEGATIVE A ----EPITHELIAL CELLS 0-5 96200723 0-10 /HPF ----LEUKOCYTE ESTERASE NEGATIVE 20190101 NEGATIVE ----NITRITE NEGATIVE 01404402 NEGATIVE ----APPEARANCE CLEAR 20190101 CLEAR ----SPECIFIC GRAVITY 1.008 20190101 1.005-1.035 ----GLUCOSE NEGATIVE 27393198 NEGATIVE ----KETONES NEGATIVE 50499047 NEGATIVE ----pH 6.0 20190101 5.0-9.0 ----PROTEIN NEGATIVE 38907363 NEGATIVE COMPREHENSIVE METABOLIC PANEL ----CHLORIDE 90 20190101 95-107 MEQ/L L ----ALT 14 20190101 5-40 U/L ----AST 22 95166415 9-40 U/L ----ALBUMIN 4.8 67636384 3.5-5.2 G/DL ----BUN 25 20190101 8-23 MG/DL H ----GLUCOSE 109 96211715 70-99 MG/DL H ----PROTEIN, TOTAL 7.8 64038797 6.1-8.3 G/DL ---- eGFR AMER. 77 20190101 >60 ML/MIN/1.73 ----CALCIUM 10.0 77800167 8.5-10.5 MG/DL ----CREATININE 0.80 20190101 0.60-1.30 MG/DL ----CARBON DIOXIDE 27 20190101 19-31 MEQ/L ----ALKALINE PHOSPHATASE 32 20190101 40-142 U/L L ----CALC BUN/CREAT 31 20190101 6-28 RATIO H ----BILIRUBIN, TOTAL 0.4 20190101 <=1.2 MG/DL ---- eGFR NON- AMER. 67 20190101 >60 ML/MIN/1.73 ----CALC A/G RATIO 1.6 20190101 1.0-2.6 RATIO ----POTASSIUM 4.3 20190101 3.5-5.4 MEQ/L ----CALC GLOBULIN 3.0 20190101 1.9-3.7 G/DL ----SODIUM 132 20190101 133-146 MEQ/L L C-REACTIVE PROTEIN ----C-REACTIVE PROTEIN 0.2 37138010 <0.5 MG/DL dsDNA ANTIBODY ----dsDNA ANTIBODY <1.0 20190101 SEE BELOW IU/ML Opiates/Opioids PROTEIN/CREATININE RATIO, URINE ----CALC PROTEIN/CREATININE 464 [id number] SEE BELOW MG/G CREAT ----PROTEIN, URINE, CONC. 9 [id number] NOT ESTAB MG/DL ----CREATININE, URINE, CONC. 19.4 20190101 NOT ESTAB MG/DL SEDIMENTATION RATE ----SEDIMENTATION RATE 24 20190101 0-20 MM/HOUR H Skeletal Muscle Relaxants Sedatives CBC W/AUTO DIFF ----PLATELET COUNT 210 20190101 130-400 K/UL ----NEUTROPHILS 57.7 38526104 40.0-74.0 % ----RDW 13.3 64474026 11.0-15.0 % ----MCHC 34.3 71583409 32.0-35.5 G/DL ----MCH 31.8 20190101 27.0-34.0 PG ----MCV 92.9 12043457 80.0-100.0 fL ----MONOCYTES 15.9 20190101 4.0-13.0 % H ----LYMPHOCYTES 24.1 20190101 19.0-48.0 % ----BASOPHILS 0.4 71826720 0.0-2.0 % ----EOSINOPHILS 1.9 27350079 0.0-7.0 % ----WBC 5.4 20190101 4.0-11.0 K/UL ----RBC 4.24 20190101 3.80-5.10 M/UL ----HEMOGLOBIN 13.5 20190101 11.5-15.5 G/DL ----HEMATOCRIT 39.4 20190101 34.0-45.0 % Illicits Amphetamines COMPLEMENT C3 AND C4 ----COMPLEMENT C4 25 20190101 10-40 MG/DL ----COMPLEMENT C3 148 20190101 90-180 MG/DL ANTIDEPRESSANTS Benzodiazepines Barbiturates Summary Purpose eClinicalWorks Submission
--- OUTSIDE RECORDS SUMMARY | 2019-02-20 19:46 | XMS REPORT ---
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 Problem Fatigue R53.83 Active Problem Lumbago M54.5 Active Assessment Lumbago M54.5 Active Assessment Age-related osteoporosis without current pathological fracture M81.0 Active Assessment Other prison (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 Z79.899 Active Assessment Other forms of systemic lupus erythematosus M32.8 Active Medications Medication Code System Code Instructions Start Date End Date Status Dosage Amlodipine Besylate ND 67861039690 5 MG Orally Once a day Active 1 tablet Levothyroxine Sodium ND 50408076102 75 MCG Orally Once a day Active 1 tablet Warfarin Sodium ND 39340925815 3.5 MG Orally Once a day Active 1 tablet Simvastatin ND 34276613994 20 MG Orally Once a day Active 1 tablet every evening Lisinopril ND 12392747739 5 MG Orally Once a day Active 1 tablet Lorazepam ND 35344590793 2 mg Once at bed time Active 1 Tablet Ranexa ND 43446656437 500 MG Orally Once a day Active 1 tablet Amiodarone HCl ND 61078580240 200 MG Orally Once a day Active 1 tablet Calcium 600 + D [facility] 29681304292 600-200 MG-UNIT Orally Once a day Active 2 tablets Metoprolol Tartrate [facility] 12253151726 25 MG Orally Once a day Active 1 tablet Hydrocodone-Acetaminophen [facility] 63096981621 7.5-325 MG Orally every 6 hrs Active 1 tablet as needed Furosemide [facility] 05283136641 40 MG Orally Once a day Active 1 tablet Vital Signs Date/Time: Aug 22, 2017 BMI 26.57 Index Weight 150 lbs Height 63 in Temperature 96.4 F Cardiac Monitoring Heart Rate 70 /min Blood Pressure Diastolic 70 mm Hg Blood Pressure Systolic 102 mm Hg Results No Known Results Summary Purpose eClinicalWorks Submission
--- OUTSIDE RECORDS SUMMARY | 2019-02-20 19:46 | XMS REPORT ---
Author Author Ritu Vu [facility] eClinicalWorks Address Unknown Phone Unavailable Care Team Providers Care Oil Field Pipeline Supervisor Name Role Phone Ritu Vu Unavailable Allergies, Adverse Reactions, Alerts Substance Reaction Event Type tetanus Info Not Available Non Drug Allergy demoral Info Not Available Non Drug Allergy sulfa Info Not Available Non Drug Allergy cipro Info Not Available Non Drug Allergy Problems Problem Type Condition Code Onset Dates Condition Status Assessment Other forms of systemic lupus erythematosus M32.8 Active Problem Other forms of systemic lupus erythematosus M32.8 Active Problem Personal history of (healed) osteoporosis fracture Z87.310 Active Problem Right knee pain M25.561 Active Problem Fatigue R53.83 Active Problem Vitamin D deficiency E55.9 Active Problem 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 Problem Vitamin D deficiency, unspecified E55.9 Active Problem Lumbago M54.5 Active Problem Age-related osteoporosis without current pathological fracture M81.0 Active Assessment Lumbago M54.5 Active Assessment Vitamin D deficiency E55.9 Active Assessment Age-related osteoporosis without current pathological fracture M81.0 Active Assessment 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5 MG Orally Once a day Active 1 tablet Calcium 600 + D [facility] 63222890172 600-200 MG-UNIT Orally Once a day Active 2 tablets Hydrocodone-Acetaminophen [facility] 32733565278 7.5-325 MG Orally every 6 hrs Active 1 tablet as needed Ranexa [facility] 58624318163 500 MG Orally Once a day Active [address] [facility] 49596888962 5 MG Orally Once a day Active 1 tablet Amlodipine Besylate [facility] 49508620518 5 MG Orally Once a day Active [address] [facility] 66917522449 20 MG Orally Once a day Active 1 tablet every evening Amiodarone HCl [facility] 22161883848 200 MG Orally Once a day Active 1 tablet Vital Signs Date/Time: Sep 26, 2017 BMI 26.10 Index Weight 145.0 lbs Height 62.5 in Temperature 96.7 F Cardiac Monitoring Heart Rate 68 /min Blood Pressure Diastolic 72 mm Hg Blood Pressure Systolic 104 mm Hg Results Name Result Date Reference Range Unit Abnormality Flag CBC (INCLUDES DIFF/PLT) ----ABSOLUTE NEUTROPHILS 3989 [id number] 3444-4704 cells/uL N ----MPV 10.5 08706414 7.5-12.5 fL N ----EOSINOPHILS 4.6 60160641 % N ----HEMOGLOBIN 11.8 11832201 11.7-15.5 g/dL N ----MONOCYTES 10.5 67384271 % N ----HEMATOCRIT 37.8 21414799 35.0-45.0 % N ----LYMPHOCYTES 19.0 10985845 % N ----MCV 85.5 76050742 80.0-100.0 fL N ----NEUTROPHILS 65.4 18814978 % N ----MCH 26.7 75602217 27.0-33.0 pg L ----ABSOLUTE BASOPHILS 31 54465945 0-200 cells/uL N ----MCHC 31.2 58468399 32.0-36.0 g/dL L ----BASOPHILS 0.5 44527555 % N ----ABSOLUTE EOSINOPHILS 281 94341326 15-500 cells/uL N ----RDW TNP 94002189 % ----WHITE BLOOD CELL COUNT 6.1 02560944 3.8-10.8 Thousand/uL N ----PLATELET COUNT 214 01862363 140-400 Thousand/uL N ----ABSOLUTE MONOCYTES 641 98567206 200-950 cells/uL N ----RED BLOOD CELL COUNT 4.42 86125137 3.80-5.10 Million/uL N ----ABSOLUTE LYMPHOCYTES 1159 69473238 850-3900 cells/uL N COMPREHENSIVE METABOLIC PANEL W/EGFR ----GLOBULIN 3.6 95659831 1.9-3.7 g/dL (calc) N ----eGFR 68 60753275 > OR=60 mL/min/1.73m2 N ----eGFR NON-AFR. GUAMANIAN 59 03109639 > OR=60 mL/min/1.73m2 L ----ALBUMIN 3.9 88867236 3.6-5.1 g/dL N ----SODIUM 137 51918425 135-146 mmol/L N ----PROTEIN, TOTAL 7.5 62068736 6.1-8.1 g/dL N ----BUN/CREATININE RATIO 21 20170926 6-22 (calc) N ----CALCIUM 9.4 23100938 8.6-10.4 mg/dL N ----AST 27 37072640 10-35 U/L N ----GLUCOSE 113 99237231 65-99 mg/dL H ----ALKALINE PHOSPHATASE 51 87361626 33-130 U/L N ----BILIRUBIN, TOTAL 0.8 98697544 0.2-1.2 mg/dL N ----CREATININE 0.89 59256563 0.60-0.88 mg/dL H ----ALBUMIN/GLOBULIN RATIO 1.1 50880091 1.0-2.5 (calc) N ----UREA NITROGEN (BUN) 19 81464917 7-25 mg/dL N ----CARBON DIOXIDE 29 97536634 20-31 mmol/L N ----ALT 15 20295026 6-29 U/L N ----POTASSIUM 3.8 84928375 3.5-5.3 mmol/L N ----CHLORIDE 98 38334926 98-110 mmol/L N C-REACTIVE PROTEIN ----C-REACTIVE PROTEIN 108.5 69085771 <8.0 mg/L H C3, C4, COMPLEMENT ----COMPLEMENT COMPONENT C4C 35 [id number] ADULTS: 16-47 mg/dL ----COMPLEMENT, TOTAL (CH50) >60 41202504 31-60 U/mL H ----COMPLEMENT COMPONENT C3C 184 85532905 mg/dL H VITAMIN D, 25-HYDROXY, LC/MS/MS ----VITAMIN D, 25-OH, TOTAL 22 20170926 30-100 ng/mL L DS DNA-Crithidia Ifa w/ Reflex ----DNA AB (DS) CRITHIDIA,IFA NEGATIVE [id number] NEGATIVE SED RATE BY MODIFIED WESTERGREN ----SED RATE BY MODIFIED WESTERGREN 97 20170926 < OR=30 mm/h H MATEO IFA SCREEN W/REFL TO TITER AND PATTERN, IFA ----MATEO SCREEN, IFA NEGATIVE [id number] NEGATIVE N Summary Purpose eClinicalWorks Submission
--- OUTSIDE RECORDS SUMMARY | 2019-02-20 19:47 | XMS REPORT ---
Author Author Riut Vu [facility] eClinicalWorks Address Unknown Phone Unavailable Care Team Providers Care Consumer Lending Manager Name Role Phone Ritu Vu Unavailable Allergies, Adverse Reactions, Alerts Substance Reaction Event Type tetanus Info Not Available Non Drug Allergy demoral Info Not Available Non Drug Allergy sulfa Info Not Available Non Drug Allergy cipro Info Not Available Non Drug Allergy Problems Problem Type Condition Code Onset Dates Condition Status Problem Other forms of systemic lupus erythematosus M32.8 Active Problem Other long-term (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 Z79.899 Active Problem Vitamin D deficiency, unspecified E55.9 Active Problem Polymyalgia rheumatica M35.3 Active Problem Vitamin D deficiency E55.9 Active Problem 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, subsequent encounter M80.00XD Active Problem Lumbago M54.5 Active Problem Age-related osteoporosis without current pathological fracture M81.0 Active Problem Right knee pain M25.561 Active Problem Fatigue R53.83 Active Assessment Other forms of systemic lupus erythematosus M32.8 Active Assessment Polymyalgia rheumatica M35.3 Active Problem Personal history of (healed) osteoporosis fracture Z87.310 Active Medications Medication Code System Code Instructions Start Date End Date Status Dosage Levothyroxine Sodium [facility] 53840610004 75 MCG Orally Once a day Active [address] [facility] 55829206338 2 mg Once at bed time Active 1 Tablet Warfarin Sodium ND 72885667403 3.5 MG Orally Once a day Active 1 tablet Simvastatin ND 12190823309 20 MG Orally Once a day Active 1 tablet every evening Vitamin D (Ergocalciferol) [facility] 12372876079 99852 UNIT Orally Once a week Active 1 capsule Lisinopril ND 81097834291 5 MG Orally Once a day Active 1 tablet Hydrocodone-Acetaminophen [facility] 71563486457 7.5-325 MG Orally every 6 hrs Active 1 tablet as needed PredniSONE ND 97373118709 5 MG Orally Once a day Sep 04, 2018 March 03, 2019 Active [address] [facility] 31499134126 25 MG Orally Once a day Active [address] [facility] 39609736464 40 MG Orally Once a day Active 1 tablet Vital Signs Date/Time: Sep 04, 2018 BMI 26.71 Index Weight 141.4 lbs Height 61 in Temperature 97.4 F Cardiac Monitoring Heart Rate 68 /min Blood Pressure Diastolic 72 mm Hg Blood Pressure Systolic 104 mm Hg Results No Known Results Summary Purpose eClinicalWorks Submission
--- OUTSIDE RECORDS SUMMARY | 2019-02-20 19:47 | XMS REPORT ---
Author Author Raúl Dias Organization eClinicalWorks Address Unknown Phone Unavailable Care Team Providers Care Tire And Lube Technician Name Role Phone Raúl Dias CP Unavailable Allergies No Known Allergies Problems Problem Type Condition Code Onset Dates Condition Status Problem Other forms of systemic lupus erythematosus M32.8 Active Problem Other long-term (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 Z79.899 Active Problem Vitamin D deficiency, unspecified E55.9 Active Problem Personal history of (healed) osteoporosis fracture Z87.310 Active Problem Polymyalgia rheumatica M35.3 Active Problem Vitamin D deficiency E55.9 Active Problem 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, subsequent encounter M80.00XD Active Problem Lumbago M54.5 Active Problem Age-related osteoporosis without current pathological fracture M81.0 Active Problem Right knee pain M25.561 Active Problem Fatigue R53.83 Active Medications No Known Medications Results No Known Results Summary Purpose [facility] Submission
--- OUTSIDE RECORDS SUMMARY | 2019-02-20 19:47 | XMS REPORT ---
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 Problem Vitamin [...] M81.0 Active Assessment Lumbago M54.5 Active Assessment Muscle spasm M62.838 Active Assessment Polymyalgia rheumatica M35.3 Active Assessment Other halfway (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 Z79.899 Active Assessment Other forms of systemic lupus erythematosus M32.8 Active Problem Personal history of (healed) osteoporosis fracture Z87.310 Active Medications Medication Code System Code Instructions Start Date End Date Status Dosage Lorazepam [facility] 73756590282 2 mg Once at bed time Active 1 Tablet Furosemide ND 31107773700 40 MG Orally Once a day Active 1 tablet Atenolol ND 19184398740 25 MG Orally Once a day Active 1 tablet PredniSONE ND 62547920118 5 MG Orally Once a day Active 1 tablet Vitamin D (Ergocalciferol) [facility] 80380643162 09639 UNIT Orally Once a week Active 1 capsule Levothyroxine Sodium [facility] 83910391301 75 MCG Orally Once a day Active 1 tablet Warfarin Sodium [facility] 38464854568 3.5 MG Orally Once a day Active 1 tablet Lisinopril [facility] 97608520540 5 MG Orally Once a day Active 1 tablet Simvastatin [facility] 44666234065 20 MG Orally Once a day Active 1 tablet every evening Hydrocodone-Acetaminophen [facility] 16470003380 7.5-325 MG Orally every 6 hrs Active 1 tablet as needed Vital Signs Date/Time: Oct 04, 2018 BMI 26.06 Index Weight 142.5 lbs Height 62 in Temperature 97.0 F Cardiac Monitoring Heart Rate 80 /min Blood Pressure Diastolic 60 mm Hg Blood Pressure Systolic 102 mm Hg Results No Known Results Summary Purpose eClinicalWorks Submission
--- OUTSIDE RECORDS SUMMARY | 2019-02-20 19:47 | XMS REPORT ---
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.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 Problem Vitamin D deficiency, unspecified E55.9 Active Problem Polymyalgia rheumatica M35.3 Active Problem Vitamin D deficiency E55.9 Active Problem 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, subsequent encounter M80.00XD Active Problem Lumbago M54.5 Active Problem Age-related osteoporosis without current pathological fracture M81.0 Active Problem Right knee pain M25.561 Active Problem Fatigue R53.83 Active Assessment Lumbago M54.5 Active Assessment Age-related osteoporosis without current pathological fracture M81.0 Active Assessment Other forms of systemic lupus erythematosus M32.8 Active Assessment Polymyalgia rheumatica M35.3 Active Assessment Chronic prescription opiate use Z79.891 Active Assessment Other care home (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 Z79.899 Active Problem Personal history of (healed) osteoporosis fracture Z87.310 Active Medications Medication Code System Code Instructions Start Date End Date Status Dosage Lorazepam ND 20530907198 2 mg Once at bed time Active 1 Tablet Furosemide ND 12513005867 40 MG Orally Once a day Active 1 tablet Hydrocodone-Acetaminophen ND 51244861711 7.5-325 MG Orally every 6 hrs Active 1 tablet as needed Atenolol ND 49647595083 25 MG Orally Once a day Active 1 tablet Warfarin Sodium ND 81188550169 3.5 MG Orally Once a day Active 1 tablet Lisinopril ND 25947605112 5 MG Orally Once a day Active 1 tablet PredniSONE [facility] 76647695365 5 MG Orally Once a day Active 1 tablet Levothyroxine Sodium [facility] 59482383384 75 MCG Orally Once a day Active 1 tablet Vitamin D (Ergocalciferol) [facility] 56306244306 2000 UNIT Orally Active as directed Simvastatin [facility] 10510221929 20 MG Orally Once a day Active 1 tablet every evening Vital Signs Date/Time: January 30, 2019 BMI 27.53 Index Weight 145.7 lbs Height 61 in Temperature 98.5 F Cardiac Monitoring Heart Rate 72 /min Blood Pressure Diastolic 84 mm Hg Blood Pressure Systolic 146 mm Hg Results No Known Results Summary Purpose eClinicalWorks Submission
--- OUTSIDE RECORDS SUMMARY | 2019-02-20 19:47 | XMS REPORT ---
Author Author Ritu Vu [facility] eClinicalWorks Address Unknown Phone Unavailable Care Team Providers Care Cargo Supervisor Name Role Phone Ritu Vu CP Unavailable [...] current pathological fracture M81.0 Active Problem Other mcfp (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 Z79.899 Active Problem Fatigue R53.83 Active Problem Lumbago M54.5 Active Assessment Lumbago M54.5 Active Assessment Polymyalgia rheumatica M35.3 Active Assessment Other long term care social worker (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 Z79.899 Active Assessment Cystitis, unspecified with hematuria N30.91 Active Assessment Other forms of systemic lupus erythematosus M32.8 Active Medications Medication Code System Code Instructions Start Date End Date Status Dosage Levothyroxine Sodium [facility] 23720106405 75 MCG Orally Once a day Active 1 tablet Lorazepam [facility] 55556709960 2 mg Once at bed time Active 1 Tablet Simvastatin ND 67172633785 20 MG Orally Once a day Active 1 tablet every evening Warfarin Sodium ND 30110625357 3.5 MG Orally Once a day Active 1 tablet Furosemide ND 88751263870 40 MG Orally Once a day Active 1 tablet PredniSONE ND 31527170243 5 MG Orally once a day March 20, 2018 Active 1 tablet Calcium 600 + D [facility] 18137338907 600-200 MG-UNIT Orally Once a day Active 2 tablets Lisinopril ND 58792911770 5 MG Orally Once a day Active 1 tablet Ranexa [facility] 52010758433 500 MG Orally Once a day Active 1 tablet Metoprolol Tartrate [facility] 77762332906 25 MG Orally Once a day Active 1 tablet Hydrocodone-Acetaminophen [facility] 86634428962 7.5-325 MG Orally every 6 hrs Dec 23, 2017 Active 1 tablet as needed Amiodarone HCl [facility] 14991082391 200 MG Orally Once a day Active 1 tablet Vital Signs Date/Time: Dec 20, 2017 BMI 28.00 Index Weight 153.1 lbs Height 62 in Temperature 97.3 F Cardiac Monitoring Heart Rate 84 /min Blood Pressure Diastolic 64 mm Hg Blood Pressure Systolic 100 mm Hg Results Name Result Date Reference Range Unit Abnormality Flag URINALYSIS, COMPLETE W/REFLEX TO CULTURE ----BACTERIA NONE SEEN 20171220 NONE SEEN /HPF N ----SQUAMOUS EPITHELIAL CELLS 0-5 20171220 < OR=5 /HPF ----REFLEXIVE URINE CULTURE NO CULTURE INDICATED 20171220 ----HYALINE CAST NONE SEEN 20171220 NONE SEEN /LPF N ----PROTEIN NEGATIVE 20171220 NEGATIVE N ----OCCULT BLOOD 1+ 20171220 NEGATIVE A ----KETONES NEGATIVE 20171220 NEGATIVE N ----BILIRUBIN NEGATIVE 20171220 NEGATIVE N ----GLUCOSE NEGATIVE 20171220 NEGATIVE N ----LEUKOCYTE ESTERASE NEGATIVE 20171220 NEGATIVE N ----NITRITE NEGATIVE 20171220 NEGATIVE N ----RBC 0-2 20171220 < OR=2 /HPF N ----WBC NONE SEEN 20171220 < OR=5 /HPF N ----COLOR YELLOW 20171220 YELLOW N ----APPEARANCE CLEAR 20171220 CLEAR N ----SPECIFIC GRAVITY 1.006 20171220 1.001-1.035 N ----PH 6.0 20171220 5.0-8.0 N Summary Purpose eClinicalWorks Submission
--- OUTSIDE RECORDS SUMMARY | 2019-02-20 19:47 | XMS REPORT ---
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 Problem Fatigue R53.83 Active Problem Lumbago M54.5 Active Assessment Lumbago M54.5 Active Assessment Other longterm (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 Z79.899 Active Assessment Other forms of systemic lupus erythematosus M32.8 Active Assessment Polymyalgia rheumatica M35.3 Active Medications Medication Code System Code Instructions Start Date End Date Status Dosage PredniSONE [facility] 78577929430 10 MG Orally once a day Oct 03, 2017 Dec 23, 2017 Active 1 tablet Levothyroxine Sodium ND 94889834129 75 MCG Orally Once a day Active 1 tablet Metoprolol Tartrate ND 84232584014 25 MG Orally Once a day Active 1 tablet Lorazepam [facility] 49798666575 2 mg Once at bed time Active 1 Tablet Hydrocodone-Acetaminophen [facility] 13399544063 7.5-325 MG Orally every 6 hrs Dec 23, 2017 Active 1 tablet as needed Amiodarone HCl ND 50525641361 200 MG Orally Once a day Active 1 tablet Amlodipine Besylate ND 89102855391 5 MG Orally Once a day Active 1 tablet Lisinopril ND 20860165733 5 MG Orally Once a day Active 1 tablet Ranexa [facility] 92551231308 500 MG Orally Once a day Active 1 tablet Simvastatin [facility] 92688814923 20 MG Orally Once a day Active 1 tablet every evening Calcium 600 + D [facility] 09250428979 600-200 MG-UNIT Orally Once a day Active 2 tablets Furosemide [facility] 64876675538 40 MG Orally Once a day Active 1 tablet Warfarin Sodium [facility] 29783868530 3.5 MG Orally Once a day Active 1 tablet Vital Signs Date/Time: Nov 23, 2017 BMI 27.62 Index Weight 151 lbs Height 62 in Temperature 96.1 F Cardiac Monitoring Heart Rate 88 /min Blood Pressure Diastolic 60 mm Hg Blood Pressure Systolic 114 mm Hg Results Name Result Date Reference Range Unit Abnormality Flag C-REACTIVE PROTEIN ----C-REACTIVE PROTEIN 3.9 [id number] <8.0 mg/L N SED RATE BY MODIFIED WESTERGREN ----SED RATE BY MODIFIED WESTERGREN 39 [id number] < OR=30 mm/h H Summary Purpose eClinicalWorks Submission
--- OUTSIDE RECORDS SUMMARY | 2019-02-20 19:47 | XMS REPORT ---
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.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 Active Problem Vitamin [...] Active Assessment Polymyalgia rheumatica M35.3 Active Assessment Lumbago M54.5 Active Assessment 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, subsequent encounter M80.00XD Active Assessment Vitamin D deficiency, unspecified E55.9 Active Problem Personal history of (healed) osteoporosis fracture Z87.310 Active Medications Medication Code System Code Instructions Start Date End Date Status Dosage Furosemide ND 83102548478 40 MG Orally Once a day Active 1 tablet Levothyroxine Sodium ND 86185485345 75 MCG Orally Once a day Active 1 tablet Amiodarone HCl ND 66933409887 200 MG Orally Once a day Active 1 tablet Lisinopril ND 29474957091 5 MG Orally Once a day Active 1 tablet PredniSONE ND 56325864039 5 MG Orally once a day Active 1 tablet Lorazepam ND 80760576717 2 mg Once at bed time Active 1 Tablet Simvastatin ND 25125169105 20 MG Orally Once a day Active 1 tablet every evening Atenolol [facility] 01932424692 25 MG Orally Once a day Active 1 tablet Warfarin Sodium [facility] 07826545516 3.5 MG Orally Once a day Active 1 tablet Vitamin D (Ergocalciferol) [facility] 10702983882 97566 UNIT Orally Once a week Jun 07, 2018 Active 1 capsule Hydrocodone-Acetaminophen [facility] 64948607105 7.5-325 MG Orally every 6 hrs Active 1 tablet as needed Vital Signs Date/Time: Jun 07, 2018 BMI 26.61 Index Weight 145.5 lbs Height 62 in Temperature 97.0 F Cardiac Monitoring Heart Rate 74 /min Blood Pressure Diastolic 70 mm Hg Blood Pressure Systolic 110 mm Hg Results No Known Results Summary Purpose eClinicalWorks Submission
--- OUTSIDE RECORDS SUMMARY | 2019-02-20 19:47 | XMS REPORT ---
Author Author Raúl Dias Organization eClinicalWorks Address Unknown Phone Unavailable Care Team Providers Care Parcel Contractor Name Role Phone Raúl Dias CP Unavailable Allergies No Known Allergies Problems Problem Type Condition Code Onset Dates Condition Status Problem Other forms of systemic lupus erythematosus M32.8 Active Problem Other nursing home (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 Z79.899 Active Problem Vitamin [...] Medications Results No Known Results Summary Purpose [employer] Submission
--- OUTSIDE RECORDS SUMMARY | 2019-02-20 19:47 | XMS REPORT ---
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.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 [...] of systemic lupus erythematosus M32.8 Active Assessment Lumbago M54.5 Active Assessment Vitamin D deficiency, unspecified E55.9 Active Assessment Age-related osteoporosis without current pathological fracture M81.0 Active Assessment Muscle spasm M62.838 Active Assessment Polymyalgia rheumatica M35.3 Active Assessment Other [facility] (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 Z79.899 Active Assessment Chronic prescription opiate use Z79.891 Active Problem Personal history of (healed) osteoporosis fracture Z87.310 Active Medications Medication Code System Code Instructions Start Date End Date Status Dosage Vitamin D (Ergocalciferol) [facility] 42406683915 2000 UNIT Orally Active as directed Levothyroxine Sodium [facility] 96541018322 75 MCG Orally Once a day Active 1 tablet PredniSONE ND 45976155210 5 MG Orally Once a day Active 1 tablet Warfarin Sodium ND 00570796039 3.5 MG Orally Once a day Active 1 tablet Lorazepam [facility] 59836558381 2 mg Once at bed time Active 1 Tablet Furosemide [facility] 46031498665 40 MG Orally Once a day Active 1 tablet Hydrocodone-Acetaminophen [facility] 11104743471 7.5-325 MG Orally every 6 hrs Active 1 tablet as needed Atenolol [facility] 34147180252 25 MG Orally Once a day Active 1 tablet Simvastatin [facility] 57086600616 20 MG Orally Once a day Active 1 tablet every evening Lisinopril [facility] 84230318400 5 MG Orally Once a day Active 1 tablet Vital Signs Date/Time: Nov 01, 2018 BMI 28 Index Weight 145.9 lbs Height 61 in Temperature 96.0 F Cardiac Monitoring Heart Rate 80 /min Blood Pressure Diastolic 78 mm Hg Blood Pressure Systolic 112 mm Hg Results No Known Results Summary Purpose eClinicalWorks Submission
--- OUTSIDE RECORDS SUMMARY | 2019-02-20 19:47 | XMS REPORT ---
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.899 Active Problem Vitamin [...] R53.83 Active Assessment Lumbago M54.5 Active Assessment Closed wedge compression fracture of twelfth thoracic vertebra, initial encounter S22.080A Active Problem Personal history of (healed) osteoporosis fracture Z87.310 Active Medications Medication Code System Code Instructions Start Date End Date Status Dosage Warfarin Sodium ND 49526193414 3.5 MG Orally Once a day Active 1 tablet Metoprolol Tartrate ND 79317378086 25 MG Orally Once a day Active 1 tablet Lorazepam ND 18862706700 2 mg Once at bed time Active 1 Tablet Hydrocodone-Acetaminophen ND 16159091704 7.5-325 MG Orally every 6 hrs Active 1 tablet as needed Ranexa ND 80540161656 500 MG Orally Once a day Active 1 tablet Simvastatin ND 42175438704 20 MG Orally Once a day Active 1 tablet every evening Calcium 600 + D [facility] 05848999380 600-200 MG-UNIT Orally Once a day Active 2 tablets Furosemide ND 81761199891 40 MG Orally Once a day Active 1 tablet Levothyroxine Sodium [facility] 27951907664 75 MCG Orally Once a day Active 1 tablet PredniSONE [facility] 84540429588 5 MG Orally once a day April 18, 2018 Active 1 tablet Lisinopril [facility] 17053706541 5 MG Orally Once a day Active 1 tablet Amiodarone HCl [facility] 52121435280 200 MG Orally Once a day Active 1 tablet Vital Signs Date/Time: May 08, 2018 BMI 28.35 Index Weight 155 lbs Height 62 in Temperature 96.6 F Cardiac Monitoring Heart Rate 78 /min Blood Pressure Diastolic 60 mm Hg Blood Pressure Systolic 102 mm Hg Results No Known Results Summary Purpose eClinicalWorks Submission
--- OUTSIDE RECORDS SUMMARY | 2019-02-20 19:47 | XMS REPORT ---
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
--- OUTSIDE RECORDS SUMMARY | 2019-02-20 19:47 | XMS REPORT ---
Author Author Raúl Dias Organization eClinicalWorks Address Unknown Phone Unavailable Care Team Providers Care Lining Cementer Name Role Phone Raúl Dias CP Unavailable [...] current pathological fracture M81.0 Active Problem Other prison (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 Z79.899 Active Problem Fatigue R53.83 Active Problem Lumbago M54.5 Active Medications No Known Medications Results No Known Results Summary Purpose eClinicalWorks Submission
--- OUTSIDE RECORDS SUMMARY | 2019-02-20 19:47 | XMS REPORT ---
Author Author Raúl Dias Organization eClinicalWorks Address Unknown Phone Unavailable Care Team Providers Care Brick Tester Name Role Phone Raúl Dias CP Unavailable [...]
--- OUTSIDE RECORDS SUMMARY | 2019-02-20 19:47 | XMS REPORT ---
Author Author Raúl Dias Organization eClinicalWorks Address Unknown Phone Unavailable Care Team Providers Care Cook Dessert Name Role Phone Raúl Dias CP Unavailable Allergies No Known Allergies Problems Problem Type Condition Code Onset Dates Condition Status Problem Other forms of systemic lupus erythematosus M32.8 Active Problem Other [facility] (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 Z79.899 Active Problem Vitamin [...] Medications Results No Known Results Summary Purpose [employer] Submission
--- OUTSIDE RECORDS SUMMARY | 2019-02-20 19:47 | XMS REPORT ---
Author Raúl Bhat [facility] eClinicalWorks Address Unknown Phone Unavailable Care Team Providers Care Hospice Care Transitions Coordinator Name Role Phone Raúl Dias CP Unavailable [...] current pathological fracture M81.0 Active Problem Other [facility] (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 Z79.899 Active Problem Fatigue R53.83 Active Problem Lumbago M54.5 Active Medications Medication Code System Code Instructions Start Date End Date Status Dosage PredniSONE [facility] 78005070984 5 MG Orally once a day April 18, 2018 Active 1 tablet Results No Known Results Summary Purpose [employer] Submission
--- OUTSIDE RECORDS SUMMARY | 2019-02-20 19:47 | XMS REPORT ---
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 Problem Vitamin D deficiency, unspecified E55.9 Active Problem Polymyalgia rheumatica M35.3 Active Problem Vitamin D deficiency E55.9 Active Problem 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, subsequent encounter M80.00XD Active Problem Lumbago M54.5 Active Problem Age-related osteoporosis without current pathological fracture M81.0 Active Problem Right knee pain M25.561 Active Problem Fatigue R53.83 Active Assessment Polymyalgia rheumatica M35.3 Active Assessment Lumbago M54.5 Active Assessment Other forms of systemic lupus erythematosus M32.8 Active Assessment 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, subsequent encounter M80.00XD Active Problem Personal history of (healed) osteoporosis fracture Z87.310 Active Medications Medication Code System Code Instructions Start Date End Date Status Dosage Lorazepam [facility] 27069751727 2 mg Once at bed time Active 1 Tablet Warfarin Sodium ND 43133514843 3.5 MG Orally Once a day Active 1 tablet Simvastatin ND 58075980719 20 MG Orally Once a day Active 1 tablet every evening Furosemide ND 74148727240 40 MG Orally Once a day Active 1 tablet Levothyroxine Sodium ND 74271828233 75 MCG Orally Once a day Active 1 tablet Atenolol ND 48391038517 25 MG Orally Once a day Active 1 tablet Hydrocodone-Acetaminophen [facility] 70208532361 7.5-325 MG Orally every 6 hrs Active 1 tablet as needed Lisinopril [facility] 90313389925 5 MG Orally Once a day Active 1 tablet Vitamin D (Ergocalciferol) [facility] 79518956860 94437 UNIT Orally Once a week Active 1 capsule Vital Signs Date/Time: Aug 07, 2018 BMI 27.58 Index Weight 146 lbs Height 61 in Temperature 97.2 F Cardiac Monitoring Heart Rate 64 /min Blood Pressure Diastolic 68 mm Hg Blood Pressure Systolic 126 mm Hg Results No Known Results Summary Purpose eClinicalWorks Submission
--- OUTSIDE RECORDS SUMMARY | 2019-02-20 19:47 | XMS REPORT ---
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 Assessment Other forms of systemic lupus erythematosus M32.8 Active Assessment Lumbago M54.5 Active Assessment Age-related osteoporosis without current pathological fracture M81.0 Active Assessment Polymyalgia rheumatica M35.3 Active Medications Medication Code System Code Instructions Start Date End Date Status Dosage Amiodarone HCl [facility] 97666919063 200 MG Orally Once a day Active 1 tablet Warfarin Sodium [facility] 92018725739 3.5 MG Orally Once a day Active 1 tablet Lorazepam [facility] 87801671165 2 mg Once at bed time Active 1 Tablet PredniSONE ND 21913737418 5 MG Orally once a day Active 1 tablet Simvastatin [facility] 69947052649 20 MG Orally Once a day Active 1 tablet every evening Metoprolol Tartrate [facility] 44518481639 25 MG Orally Once a day Active 1 tablet Levothyroxine Sodium [facility] 66756427980 75 MCG Orally Once a day Active 1 tablet Calcium 600 + D [facility] 30092458526 600-200 MG-UNIT Orally Once a day Active 2 tablets Furosemide [facility] 14215562845 40 MG Orally Once a day Active 1 tablet Ranexa [facility] 71947442885 500 MG Orally Once a day Active 1 tablet Lisinopril [facility] 86577182672 5 MG Orally Once a day Active 1 tablet Vital Signs Date/Time: March 13, 2018 BMI 28.90 Index Weight 158 lbs Height 62 in Temperature 96.5 F Cardiac Monitoring Heart Rate 82 /min Blood Pressure Diastolic 80 mm Hg Blood Pressure Systolic 118 mm Hg Results Name Result Date Reference Range Unit Abnormality Flag C-REACTIVE PROTEIN ----C-REACTIVE PROTEIN 7.9 [id number] <8.0 mg/L N SED RATE BY MODIFIED WESTERGREN ----SED RATE BY MODIFIED WESTERGREN 24 [id number] < OR=30 mm/h N Summary Purpose eClinicalWorks Submission
--- OUTSIDE RECORDS SUMMARY | 2019-02-20 19:47 | XMS REPORT ---
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 Problem Vitamin [...] R53.83 Active Assessment Lumbago M54.5 Active Assessment Vitamin D deficiency, unspecified E55.9 Active Assessment Polymyalgia rheumatica M35.3 Active Assessment 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, subsequent encounter M80.00XD Active Assessment Chronic prescription opiate use Z79.891 Active Assessment Other forms of systemic lupus erythematosus M32.8 Active Assessment Other care home (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 Z79.899 Active Problem Personal history of (healed) osteoporosis fracture Z87.310 Active Medications Medication Code System Code Instructions Start Date End Date Status Dosage Warfarin Sodium [facility] 84878275570 3.5 MG Orally Once a day Active 1 tablet Lisinopril ND 06404278180 5 MG Orally Once a day Active 1 tablet Levothyroxine Sodium ND 07196268375 75 MCG Orally Once a day Active 1 tablet Vitamin D (Ergocalciferol) [facility] 84476066180 41713 UNIT Orally Once a week Jun 07, 2018 Active 1 capsule Atenolol [facility] 82598081750 25 MG Orally Once a day Active 1 tablet Amiodarone HCl [facility] 85201431965 200 MG Orally Once a day Active 1 tablet Lorazepam [facility] 48900064174 2 mg Once at bed time Active 1 Tablet Furosemide [facility] 60515041363 40 MG Orally Once a day Active 1 tablet Hydrocodone-Acetaminophen [facility] 22822416956 7.5-325 MG Orally every 6 hrs Active 1 tablet as needed Simvastatin [facility] 88343433443 20 MG Orally Once a day Active 1 tablet every evening Vital Signs Date/Time: Jul 10, 2018 BMI 26.52 Index Weight 145 lbs Height 62 in Temperature 97.2 F Cardiac Monitoring Heart Rate 74 /min Blood Pressure Diastolic 70 mm Hg Blood Pressure Systolic 132 mm Hg Results Name Result Date Reference Range Unit Abnormality Flag 2392 Skeletal Muscle Relaxants 2406 Sedatives 2447 Opiates/Opioids 2449 Illicits PROVIDED MEDICATIONS ----PROVIDED MEDICATIONS N/A [id number] 2354 ANTIDEPRESSANTS 2352 Amphetamines 2348 Benzodiazepines 1099 SPECIMEN VALIDITY TESTING 2358 Barbiturates Summary Purpose eClinicalWorks Submission
--- OUTSIDE RECORDS SUMMARY | 2019-02-20 19:47 | XMS REPORT ---
Author Author Raúl Dias Organization eClinicalWorks Address Unknown Phone Unavailable Care Team Providers Care Rn Cardiac Rehab Name Role Phone Raúl Dias CP Unavailable [...]
[2019-02-20 21:51] LABS: BILIRUBIN,URINE 1+ (NEGATIVE); CLARITY,URINE CLEAR (CLEAR); COLOR,URINE ORANGE (YELLOW); KETONES,URINE 1+ (NEGATIVE); LEUKOCYTE ESTERASE ,URINE NEGATIVE (NEGATIVE); NITRITE,URINE POSITIVE (NEGATIVE); PROTEIN,URINE DIPSTICK 2+ (NEGATIVE); URINE UROBILINOGEN 1 mg/dL (0.2 - 1)
[2019-02-20 21:56] LABS: EPITHELIAL CELLS,URINE MODERATE /LPF; HYALINE CASTS 0-1 (0-1); WBC,URINE (MAN) 0-5 /HPF (0-5)
[2019-02-20 22:52] VITALS: BP 158/97
== END 2019-02-20 23:10 | disposition home or self-care (01) ==
LOC: ER 19:41
DX: R07.89 Other chest pain (principal); R52 Pain, unspecified
CPT/HCPCS: 81001; 99283

== ENCOUNTER 2019-02-23 13:45 | Inpatient (IN) | payer MEDICARE ==
[~2019-02-23] VITALS: Ht 157.5 cm; Wt 67.1 kg
--- OUTSIDE RECORDS SUMMARY | 2019-02-23 13:49 | XMS REPORT | Clinical Summary ---
Author Author PALAK [facility] Address Unknown Phone Unavailable Care Team Providers Care In House Counsel Name Role Phone Shon Galan MD PCP [...] (Alexander) MD Casey Coronary artery disease involving [place] coronary artery of [place] heart, angina presence unspecified (Primary Dx); Chest pain, unspecified type; Abdominal discomfort 08/29/2018 Emergency Cardiology - 08/30/2018 08/29/2018 Orders Only General Internal Medicine 08/29/2018 Travel Mando Osuna MD L CATH & CORONARY ANGIOS 02/28/2018 Surgery Mando Osuna MD Abnormal echocardiogram 02/28/2018 Hospital Encounter Mando Osuna MD 02/23/2018 Orders Only Cardiology after 02/22/2018 Immunizations Name Dates Previously Given Next Due [...] Lot Implanted Type Area Manufactur er 05/29/2018 [id number] / / [id number] Device Clsr Angio-Seal Vip 6fr Cardiovasc Groin [employer] [id number] - [id number] ular MED:CARDIA Implanted: Qty: 1 on 08/18/2017 by Mando Morgan MD 11/29/2018 [id number] / / [id number] Device Clsr Angio-Seal Vip 6fr Cardiovasc Right: Groin [facility] [employer] [id number] - [id number] ular MED:CARDIA Implanted: Qty: 1 on 02/28/2018 [...] ms QTC Calculatio n(Bazett) 451 ms R [place] 13 degrees T [place] 31 degrees Atrial fibrillati on with premature [...] ms QTC Calculatio n(Bazett) 448 ms R [place] 42 degrees T [place] 25 degrees Atrial fibrillati on Abnormal ECG When compared with ECG of 7 03:34, No significan t change was found ECG 12-LEAD Routine 02/28/2018 10:37 AM CDT PROTHROMBIN TIME/INR Routine 02/28/2018 10:27 AM CDT after 02/22/2018 Results * RHYTHM STRIP - SCAN (08/31/2018 12:00 PM CDT) Narrative Performed At * CBC with platelet count + automated diff (08/30/2018 5:54 AM CDT) Only the most recent of 2 results within the time period is included. WBC 4.0 3.5 - 10.5 K/L [facility] RBC 3.63 (L) 3.93 - 5.22 M/L [facility] Hemoglobin 11.7 11.2 - 15.7 GM/DL [facility] Hematocrit 36.7 34.1 - 44.9 % [facility] MCV 101.1 (H) 79.4 - 94.8 fL [facility] MCH 32.2 25.6 - 32.2 pg [facility] MCHC 31.9 (L) 32.2 - 35.5 GM/DL [facility] RDW 13.7 11.7 - 14.4 % [facility] Platelets 116 (L) 150 - 450 K/CU MM [facility] MPV 10.4 9.4 - 12.3 fL [facility] nRBC 0 0 - 0 /100 WBC [facility] % Neutros 51 % [facility] % Lymphs 28 % [facility] % Monos 17 % [facility] % Eos 3 % [facility] % Baso 1 % [facility] # Neutros 2.04 1.56 - 6.13 K/L [facility] # Lymphs 1.14 (L) 1.18 - 3.74 K/L [facility] # Monos 0.67 (H) 0.24 - 0.36 K/L [facility] # Eos 0.13 0.04 - 0.36 K/L [facility] # Baso 0.03 0.01 - 0.08 K/L [facility] Immature 0 0 - 1 % [facility] Granulocytes-Relative [facility] Specimen Blood Performing Organization Address City/[facility]/Zipcode Phone Number [facility] [address] [place] [address] MEDICAL CENTER * Prothrombin time/INR (08/30/2018 5:54 AM CDT) Only the most recent of 2 results within the time period is included. Protime 26.3 (H) 11.7 - 14.7 seconds [facility] INR 2.4 <=5.9 [facility] Specimen Blood Narrative Performed At RECOMMENDED COUMADIN/WARFARIN INR THERAPY RANGES [facility] STANDARD DOSE: 2.0 - 3.0 Includes: PROPHYLAXIS for venous thrombosis, [facility] systemic embolization; TREATMENT for venous thrombosis and/or pulmonary embolus. HIGH RISK: Target INR is 2.5-3.5 for patients with mechanical heart valves. Performing Organization Address City/[facility] Phone Number [facility] [address] [place] [address] [facility] * Magnesium (08/30/2018 5:54 AM CDT) Only the most recent of 2 results within the time period is included. Magnesium 2.0 1.6 - 2.6 mg/dL [facility] Specimen Blood Performing Organization Address City/[facility] Phone Number [facility] [address] [place] [address] [phone] * Basic Metabolic Panel (08/30/2018 5:54 AM CDT) Only the most recent of 2 results within the time period is included. Sodium 135 (L) 136 - 145 meq/L [facility] Potassium 4.0 3.5 - 5.1 meq/L [facility] Chloride 104 98 - 107 meq/L [facility] CO2 22 22 - 29 meq/L [facility] BUN 19 7 - 21 mg/dL [facility] Creatinine 0.78 0.57 - 1.25 mg/dL [facility] Glucose 94 70 - 105 mg/dL [facility] Calcium 8.8 8.4 - 10.2 mg/dL [facility] EGFR 70Comment: ESTIMATED GFR IS mL/min/1.73 sq m [facility] NOT ACCURATE CREATININE [facility] CLEARANCE IN PREDICTING GLOMERULAR FILTRATION RATE. ESTIMATED GFR IS NOT APPLICABLE FOR DIALYSIS PATIENTS. Specimen Blood Performing Organization Address City/[facility]code Phone Number [facility] [address] [place] [phone] [place] [address] * Troponin I (08/30/2018 12:35 AM CDT) Only the most recent of 3 results within the time period is included. Troponin I 0.04 (H) 0.00 - 0.03 ng/mL [facility] Specimen Blood Narrative Performed At Troponin I (TnI) levels must be interpreted in the context of the presenting [facility] symptoms and the clinical findings. Elevated TnI levels indicate myocardial [facility] damage, but are not specific for ischemic heart disease. Elevated TnI levels are seen in patients with other cardiac conditions (including myocarditis and congestive heart failure), and slight TnI elevations occur in patients with other conditions, including sepsis, renal failure, acidosis, acute neurological disease, and persistent tachyarrhythmia. Performing Organization Address City/[facility]/Zipcode Phone Number [facility] [address] [place] [address] [phone] [facility] * Creatine Kinase (CK), Total and MB (08/30/2018 12:35 AM CDT) Only the most recent of 2 results within the time period is included. Total CK 69 29 - 200 U/L [facility] CK-MB 1.3 0.0 - 6.6 ng/mL [facility] MB Relative Index 1.9 % [facility] Specimen Blood Narrative Performed At CK-MB Reference Range: [facility] <6.7Normal [facility] 6.7-10.0Borderline >10.0 Abnormal Performing Organization Address City/[facility] Hospitalcoca Phone Number [facility] [address], [place] [phone] [place] [address] * ECG 12 lead (08/29/2018 7:03 PM CDT) Only the most recent of 3 results within the time period is included. Specimen Narrative Performed At Ventricular Rate 70 BPM GE MUSE Atrial Rate 300 BPM QRS Duration 78 ms Q-T Interval 418 ms QTC Calculation(Bazett) 451 ms R [place] 13 degrees T [place] 31 degrees Atrial fibrillation with premature ventricular [...] 418 ms QTC Calculation(Bazett) 451 ms R [place] 13 degrees T [place] 31 degrees Atrial fibrillation with premature ventricular or aberrantly conducted complexes Abnormal ECG When compared with ECG of 29-AUG-2018 12:34, No significant change was found Confirmed by Ashley ALEXANDRA BASANT ([id number]) on 08/30/2018 8:16:21 AM Performing Organization Address City/State/Zipcode Phone Number [facility] * CT abdomen/pelvis without iv contrast (08/29/2018 4:16 PM CDT) Specimen Narrative Performed At FINAL REPORT [email or web address] CT of the abdomen and pelvis, without [...] MD Report Verified Date/Time:08/29/2018 16:54:56 Reading Location: [facility] C013X Ortho Consult Reading Room Procedure Note [...] Report Verified Date/Time: 08/29/2018 16:54:56 Reading Location: [facility] B1 C013X Ortho Consult Reading Room Performing Organization Address City/[facility] Hospitalcode Phone Number [facility] * ECG/EKG Interpretation (08/29/2018 1:44 PM [...] Protime 23.6 (H) 11.7 - 14.7 seconds [facility] INR 2.1 <=5.9 [facility] PTT 30.6 22.5 - 36.0 seconds [facility] Specimen Blood Narrative Performed At RECOMMENDED COUMADIN/WARFARIN INR THERAPY RANGES [facility] STANDARD DOSE: 2.0 - 3.0 Includes: PROPHYLAXIS for venous thrombosis, [facility] systemic embolization; TREATMENT for venous thrombosis and/or pulmonary embolus. HIGH RISK: Target INR is 2.5-3.5 for patients with mechanical heart valves. Performing Organization Address [facility] Hospitalcode Phone Number [facility] [address] [place] [address] [facility] * B-type Natriuretic Factor (BNP) (08/29/2018 1:29 PM CDT) BNP 620 (H) 0 - 100 pg/mL [facility] Specimen Blood Performing Organization Address [facility] Hospitalcode Phone Number [facility] [address] [place] [address] [facility] * XR chest 2 views (08/29/2018 1:16 PM CDT) Specimen Narrative Performed At FINAL REPORT [facility] EXAM: Frontal and lateral chest radiograph [...] MD Report Verified Date/Time:08/29/2018 14:06:34 Reading Location: [facility] Reading Room Procedure Note Interface, External Ris [...] Report Verified Date/Time: 08/29/2018 14:06:34 Reading Location: [facility] Mammo Reading Room Performing Organization Address City/State/Zipcode Phone Number RIS * VASCULAR DIAGRAM -SCAN (04/26/2018 11:41 AM CDT) Narrative Performed At * CARDIAC CATH REPORT - SCAN (03/01/2018 8:40 PM CDT) Narrative Performed At after 02/22/2018 Insurance Payer Benefit Subscriber ID Type Phone Address Plan / Group MEDICARE MEDICARE A xxxxxxxxxxx Medicare B MCR SUPPLEMENT/INDIVIDUAL AARP/UNITE xxxxxxxxxxx [facility] D HEALTHCARE Advance Directives For more information, please contact: [facility] [address] [facility] [place] [address] Date Inactivated Comments Code Status [...]
[2019-02-23] MEDS ORDERED: SODIUM CHLORIDE 0.9% 1000ML 1,000 ML IV STA (14:14)
--- OUTSIDE RECORDS SUMMARY | 2019-02-23 14:41 | XMS REPORT | Clinical Summary ---
Author Author PALAK [facility] Address Unknown Phone Unavailable Care Team Providers Care Fleet Administrator Name Role Phone Shon Galan MD PCP [...] (Alexander) MD Casey Coronary artery disease involving [place] coronary artery of [place] heart, angina presence unspecified (Primary Dx); Chest [...] Lot Implanted Type Area Manufactur er 05/29/2018 [id number] / / [id number] Device Clsr Angio-Seal Vip 6fr Cardiovasc Groin [employer] [id number] - [id number] ular MED:CARDIA Implanted: Qty: 1 on 08/18/2017 by Mando Morgan MD 11/29/2018 [id number] / / [id number] Device Clsr Angio-Seal Vip 6fr Cardiovasc Right: Groin [facility] [employer] [id number] - [id number] ular MED:CARDIA Implanted: Qty: 1 on 02/28/2018 [...] ms QTC Calculatio n(Bazett) 451 ms R [place] 13 degrees T [place] 31 degrees Atrial fibrillati on with premature [...] ms QTC Calculatio n(Bazett) 448 ms R [place] 42 degrees T [place] 25 degrees Atrial fibrillati on Abnormal ECG [...] included. WBC 4.0 3.5 - 10.5 K/L [facility] RBC 3.63 (L) 3.93 - 5.22 M/L [facility] Hemoglobin 11.7 11.2 - 15.7 GM/DL [facility] Hematocrit 36.7 34.1 - 44.9 % [facility] MCV 101.1 (H) 79.4 - 94.8 fL [facility] MCH 32.2 25.6 - 32.2 pg [facility] MCHC 31.9 (L) 32.2 - 35.5 GM/DL [facility] RDW 13.7 11.7 - 14.4 % [facility] Platelets 116 (L) 150 - 450 K/CU MM [facility] MPV 10.4 9.4 - 12.3 fL [facility] nRBC 0 0 - 0 /100 WBC [facility] % Neutros 51 % [facility] % Lymphs 28 % [facility] % Monos 17 % [facility] % Eos 3 % [facility] % Baso 1 % [facility] # Neutros 2.04 1.56 - 6.13 K/L [facility] # Lymphs 1.14 (L) 1.18 - 3.74 K/L [facility] # Monos 0.67 (H) 0.24 - 0.36 K/L [facility] # Eos 0.13 0.04 - 0.36 K/L [facility] # Baso 0.03 0.01 - 0.08 K/L [facility] Immature 0 0 - 1 % [facility] Granulocytes-Relative [facility] Specimen Blood Performing Organization Address City/[facility]/Zipcode Phone Number [facility] [address] [place] [address] MEDICAL CENTER * Prothrombin time/INR (08/30/2018 5:54 AM CDT) Only the most recent of 2 results within the time period is included. Protime 26.3 (H) 11.7 - 14.7 seconds [facility] INR 2.4 <=5.9 [facility] Specimen Blood Narrative Performed At RECOMMENDED COUMADIN/WARFARIN INR THERAPY RANGES [facility] STANDARD DOSE: 2.0 - 3.0 Includes: PROPHYLAXIS for venous thrombosis, [facility] systemic embolization; TREATMENT for venous thrombosis and/or pulmonary embolus. HIGH RISK: Target INR is 2.5-3.5 for patients with mechanical heart valves. Performing Organization Address City/[facility] Phone Number [facility] [address] [place] [address] [facility] * Magnesium (08/30/2018 5:54 AM CDT) Only the most recent of 2 results within the time period is included. Magnesium 2.0 1.6 - 2.6 mg/dL [facility] Specimen Blood Performing Organization Address City/[facility] Phone Number [facility] [address] [place] [address] [phone] * Basic Metabolic Panel (08/30/2018 5:54 AM CDT) Only the most recent of 2 results within the time period is included. Sodium 135 (L) 136 - 145 meq/L [facility] Potassium 4.0 3.5 - 5.1 meq/L [facility] Chloride 104 98 - 107 meq/L [facility] CO2 22 22 - 29 meq/L [facility] BUN 19 7 - 21 mg/dL [facility] Creatinine 0.78 0.57 - 1.25 mg/dL [facility] Glucose 94 70 - 105 mg/dL [facility] Calcium 8.8 8.4 - 10.2 mg/dL [facility] EGFR 70Comment: ESTIMATED GFR IS mL/min/1.73 sq m [facility] NOT ACCURATE CREATININE [facility] CLEARANCE IN PREDICTING GLOMERULAR FILTRATION RATE. ESTIMATED GFR IS NOT APPLICABLE FOR DIALYSIS PATIENTS. Specimen Blood Performing Organization Address City/[facility] Phone Number [facility] [address] [place] [address] [phone] [place] [address] * Troponin I (08/30/2018 12:35 AM CDT) Only the most recent of 3 results within the time period is included. Troponin I 0.04 (H) 0.00 - 0.03 ng/mL [facility] Specimen Blood Narrative Performed At Troponin I (TnI) levels must be interpreted in the context of the presenting [facility] symptoms and the clinical findings. Elevated TnI levels indicate myocardial [facility] damage, but are not specific for ischemic heart disease. Elevated TnI levels are seen in patients with other cardiac conditions (including myocarditis and congestive heart failure), and slight TnI elevations occur in patients with other conditions, including sepsis, renal failure, acidosis, acute neurological disease, and persistent tachyarrhythmia. Performing Organization Address City/[facility]/Zipcode Phone Number [facility] [address] [place] [phone] [facility] * Creatine Kinase (CK), Total and MB (08/30/2018 12:35 AM CDT) Only the most recent of 2 results within the time period is included. Total CK 69 29 - 200 U/L [facility] CK-MB 1.3 0.0 - 6.6 ng/mL [facility] MB Relative Index 1.9 % [facility] Specimen Blood Narrative Performed At CK-MB Reference Range: [facility] <6.7Normal [facility] 6.7-10.0Borderline >10.0 Abnormal Performing Organization Address City/[facility] Hospitalconh Phone Number [facility] [address] [place], [place] [phone] [place] [address] * ECG 12 lead (08/29/2018 7:03 PM CDT) Only the most recent of 3 results within the time period is included. Specimen Narrative Performed At Ventricular Rate 70 BPM GE MUSE Atrial Rate 300 BPM QRS Duration 78 ms Q-T Interval 418 ms QTC Calculation(Bazett) 451 ms R [place] 13 degrees T [place] 31 degrees Atrial fibrillation with premature ventricular [...] 418 ms QTC Calculation(Bazett) 451 ms R [place] 13 degrees T [place] 31 degrees Atrial fibrillation with premature ventricular or aberrantly conducted complexes Abnormal ECG When compared with ECG of 29-AUG-2018 12:34, No significant change was found Confirmed by Ashley ALEXANDRA BASANT ([id number]) on 08/30/2018 8:16:21 AM Performing Organization Address City/State/Zipcode Phone Number [employer] * CT abdomen/pelvis without iv contrast (08/29/2018 4:16 PM CDT) Specimen Narrative Performed At FINAL REPORT [facility] CT of the abdomen and pelvis, without [...] MD Report Verified Date/Time:08/29/2018 16:54:56 Reading Location: [facility] C013X Ortho Consult Reading Room Procedure Note [...] Report Verified Date/Time: 08/29/2018 16:54:56 Reading Location: [facility] B1 C013X Ortho Consult Reading Room Performing Organization Address City/[facility] Phone Number [facility] [...] Protime 23.6 (H) 11.7 - 14.7 seconds [facility] INR 2.1 <=5.9 [facility] PTT 30.6 22.5 - 36.0 seconds [facility] Specimen Blood Narrative Performed At RECOMMENDED COUMADIN/WARFARIN INR THERAPY RANGES [facility] STANDARD DOSE: 2.0 - 3.0 Includes: PROPHYLAXIS for venous thrombosis, [facility] systemic embolization; TREATMENT for venous thrombosis and/or pulmonary embolus. HIGH RISK: Target INR is 2.5-3.5 for patients with mechanical heart valves. Performing Organization Address [facility] Phone Number [facility] [address] [place] [address] [facility] * B-type Natriuretic Factor (BNP) (08/29/2018 1:29 PM CDT) BNP 620 (H) 0 - 100 pg/mL [facility] Specimen Blood Performing Organization Address [facility] Phone Number [facility] [address] [place] [address] [facility] * XR chest 2 views (08/29/2018 1:16 [...] MD Report Verified Date/Time:08/29/2018 14:06:34 Reading Location: [facility] Reading Room Procedure Note Interface, [...] Report Verified Date/Time: 08/29/2018 14:06:34 Reading Location: [facility] Mammo Reading Room Performing Organization Address City/State/Zipcode Phone Number RIS * VASCULAR DIAGRAM -SCAN (04/26/2018 11:41 AM CDT) Narrative Performed At * CARDIAC CATH REPORT - SCAN (03/01/2018 8:40 PM CDT) Narrative Performed At after 02/22/2018 Insurance Payer Benefit Subscriber ID Type Phone Address Plan / Group MEDICARE MEDICARE A xxxxxxxxxxx Medicare B MCR SUPPLEMENT/INDIVIDUAL AARP/UNITE xxxxxxxxxxx [facility] D HEALTHCARE Advance Directives For more information, please contact: [facility] [address] [facility] [place] [address] Date Inactivated Comments Code Status [...]
[2019-02-23] MEDS ORDERED: ONDANSETRON HCL INJ 2MG/ML 2ML 2 MG/ML VIAL IV ONE (15:30)
[2019-02-23] MEDS ORDERED: HYDROCODONE/APAP 10MG-325MG TAB PO ONE (15:30)
[2019-02-23] MEDS ORDERED: POTASSIUM CHLO10 ME1 PO (15:51)
[2019-02-23 16:00] LABS: BASOPHILS % 0.2 % (0.0-1.0); EOSINOPHILS # (AUTO) 0.1 (0.0-0.4); EOSINOPHILS % 1.1 % (0.0-6.0); LYMPHOCYTES # (AUTO) 0.9 (1.0-3.2); LYMPHOCYTES % 17.3 % (18.0-39.1); MEAN CORPUSCULAR HEMOGLOBIN 31.6 pg (28-32); MEAN CORPUSCULAR HGB CONC 35.1 g/dL (31-35); MEAN CORPUSCULAR VOLUME 89.8 fL (81-99); MONOCYTES % 19.2 % (4.4-11.3); NEUTROPHILS # (AUTO) 3.3 (2.1-6.9); PLATELET COUNT 176 x10e3/uL (140-360); RED BLOOD COUNT 4.12 x10e6/uL (3.6-5.1)
[2019-02-23 16:08] LABS: COLOR,URINE YELLOW (YELLOW)
[2019-02-23 16:09] LABS: BILIRUBIN,URINE 1+ (NEGATIVE); CLARITY,URINE SL CLOUDY (CLEAR); KETONES,URINE 3+ (NEGATIVE); LEUKOCYTE ESTERASE ,URINE 1+ (NEGATIVE); NITRITE,URINE NEGATIVE (NEGATIVE); PROTEIN,URINE DIPSTICK 1+ (NEGATIVE); URINE UROBILINOGEN 0.2 mg/dL (0.2 - 1)
[2019-02-23 16:11] LABS: INR 3.01
[2019-02-23 16:12] LABS: PARTIAL THROMBOPLASTIN TIME 40.5 seconds (23.8-35.5)
[2019-02-23 16:14] LABS: BACTERIA,URINE MANY /HPF; EPITHELIAL CELLS,URINE FEW /LPF
[2019-02-23 16:15] LABS: RBC,URINE 21-50 /HPF (0-5); WBC,URINE (MAN) 21-50 /HPF (0-5)
--- NOTE | 2019-02-23 16:15 | NUR ---
Received report from DAWOOD Gilmore nurse. Patient is coming to room 205
--- NOTE | 2019-02-23 16:32 | Diagnostic Imaging Report ---
EXAMINATION: CHEST SINGLE (PORTABLE) INDICATION: ^ERMD ORDER ^[id number] ^1600 ^Y COMPARISON: Chest radiograph 11/19/2018 FINDINGS: AP view TUBES and LINES: None. LUNGS: Lungs are well inflated. Worsening bilateral pulmonary edema. Bibasilar atelectasis. PLEURA: No pleural effusion or pneumothorax. HEART AND MEDIASTINUM: Stable mild enlargement of the cardiac silhouette. Pulmonary arteries are enlarged. BONES AND SOFT TISSUES: No acute osseous lesion. Soft tissues are unremarkable. UPPER ABDOMEN: No free air under the diaphragm. IMPRESSION: Bilateral pulmonary edema. Signed by: Dr. Lilia Clifford M.D. on 02/23/2019 4:28 PM
--- NOTE | 2019-02-23 16:49 | NUR ---
Notified Dr. Galan that patient is on the floor. New orders received.
--- NOTE | 2019-02-23 17:00 | NUR ---
Patient arrived to the floor from the ER. patient is awake alert and oriented x3, she was able to transfer with assistance from stretcher to hospital bed using walker. Her daughter is present. The patient c/o of generalized weakness at this time but no other complaints. Oriented the patient and her daughter to the room and on how to use the call light. Explained to the patient to call for assistance when getting out of bed, patient verbalized understanding
[2019-02-23] MEDS: SODIUM CHLORIDE 0.9% 1000ML 1,000 ML IV SCH (17:16)
[2019-02-23] MEDS: CEFTRIAXONE SOD 1 GM/NS 50 ML 50 ML IV SCH (17:16)
[2019-02-23 17:19] VITALS: BP 143/63
[2019-02-23] MEDS ORDERED: FUROSEMIDE40 MG PO (17:28)
[2019-02-23] MEDS ORDERED: COUMADIN3 MG PO (17:30)
[2019-02-23 17:39] VITALS: BP 143/63
[2019-02-23] MEDS ORDERED: HYDROCODONE/APAP 5MG-325MG TAB PO PRN (17:45)
[2019-02-23 18:04] LABS: ALANINE AMINOTRANSFERASE 21 IU/L (0-55); ALBUMIN 3.6 g/dL (3.5-5.0); ALBUMIN/GLOBULIN RATIO 0.9 (0.8-2.0); ALKALINE PHOSPHATASE 33 IU/L (40-150); ANION GAP 20.3 mmol/L (8-16); BLOOD UREA NITROGEN 10 mg/dL (7-26); BUN/CREATININE RATIO 12 (6-25); CALCIUM 8.2 mg/dL (8.4-10.2); CARBON DIOXIDE 13 mmol/L (22-29); CHLORIDE 90 mmol/L (98-107); CREATINE KINASE 451 IU/L (29-168); CREATININE, SERUM 0.83 mg/dL (0.57-1.11); EST GLOMERULAR FILTRATION RATE > 60 ML/MIN (60-); GLUCOSE 70 mg/dL (74-118); MAGNESIUM 1.9 MG/DL (1.3-2.1); POTASSIUM 4.3 mmol/L (3.5-5.1)
[2019-02-23 18:10] LABS: SODIUM 119 mmol/L (136-145)
--- NOTE | 2019-02-23 19:26 | Diagnostic Imaging Report ---
Exams: Head and cervical spine CTs without IV contrast History: Trauma, fall Comparison studies: None Technique: Axial images were obtained from the brain and cervical spine. Coronal and sagittal images reconstructed from the axial data. Dose modulation, iterative reconstruction, and/or weight based adjustment of the mA/kV was utilized to reduce the radiation dose to as low as reasonably achievable. Intravenous contrast: None Findings: Head CT: Scalp: No abnormalities. Bones: No fractures, blastic or lytic lesions. Extra-axial spaces: No masses. No fluid collections. Brain sulci: Mildly prominent. Ventricles: Mild compensatory dilatation. No hydrocephalus. Parenchyma: No mass, acute hemorrhage or acute or chronic cortical infarcts. Ill-defined and mildly confluent hypodensities in the supratentorial white matter nonspecific most compatible chronic microvascular ischemic changes. There are chronic lacunar infarcts in the right frontal walton radiata and body of the right caudate nucleus. Sellar/suprasellar region: No abnormalities. Craniocervical junction: The foramen magnum is patent. No Chiari one malformation. Paranasal sinuses: Left maxillary sinus is with chronic mucoperiosteal thickening and is partially opacified by nonspecific material which may reflect debris with dystrophic calcification or possibly mycetoma. Cervical spine CT: Fractures: None. Soft tissues: No gross abnormalities. Atlantoaxial articulation: Intact. Alignment: Hyperlordotic curvature may be accentuated by patient position. No subluxations. Cervicomedullary junction: No abnormalities. The foramen magnum is patent. Vertebrae: No infection or neoplasm. Degenerative changes: Mild multilevel disc degeneration and moderate multilevel facet arthrosis. Uncovertebral and facet arthrosis with mild foraminal stenosis on the right at C4-C5 and moderate right and mild left foraminal stenosis at C5-C6. Included lung apices: A few nonspecific interstitial densities at the right lung apex mild emphysema nonspecific mosaic attenuation which may reflect air trapping.. Incidental findings: Lens replacements for previous cataract surgery. Scattered calcified atherosclerosis with calcified plaque in the carotid bulbs and densely calcified plaque in carotid siphons, intradural vertebral arteries and basilar artery. IMPRESSION: Head CT: 1. No acute abnormalities. 2. Moderate chronic microvascular ischemic changes. 3. Chronic lacunar infarcts in the right frontal walton radiata and caudate nucleus. 4. Severe intracranial calcified atherosclerosis. 5. Chronic inflammatory changes in the left maxillary sinus as described. Cervical spine CT: 1. No cervical spine fracture or subluxation. 2. Cannot exclude ligament, spinal cord and or vascular abnormalities on the basis of this examination. Signed by: Dr. Mariusz Cabrera M.D. on 02/23/2019 7:23 PM
[2019-02-23 20:00] VITALS: BP 130/64
[2019-02-23] MEDS: SIMVASTATIN 20 MG TAB PO SCH (20:34)
[2019-02-23] MEDS ORDERED: IOPAMIDOL 370 MG/ML 200 ML INFUS..BTL INJ ONE (21:10)
[2019-02-23 22:00] VITALS: BP 130/64
[2019-02-23] MEDS: LORAZEPAM 1 MG TAB PO PRN (22:17)
[2019-02-24] VITALS (8 sets, daily range): BP systolic 102–159; BP diastolic 55–68
[2019-02-24] MEDS: HYDROCODONE/APAP 10MG-325MG TAB PO PRN ×3 (00:06→18:29)
[2019-02-24] MEDS: LORAZEPAM 1 MG TAB PO PRN ×2 (01:46→23:58)
--- NOTE | 2019-02-24 02:24 | Diagnostic Imaging Report ---
EXAM: CT Abdomen and Pelvis WITH contrast INDICATION: Fall. Abdominal pain. COMPARISON: None. Correlation with lumbar spine series dated 05/06/2018. TECHNIQUE: Abdomen and pelvis were scanned utilizing a multidetector helical scanner from the lung base to the pubic symphysis after administration of IV contrast. Coronal and sagittal reformations were obtained. Routine protocol was performed. Scan was performed when during portal venous phase. IV CONTRAST: 100 cc Isovue-300 ORAL CONTRAST: Water RADIATION DOSE: Total DLP: 403.25 mGy*cm Estimated effective dose: (DLP x 0.015 x size factor) mSv COMPLICATIONS: None FINDINGS: LINES and TUBES: None. LOWER THORAX: Bilateral lower lobe cysts. Coronary artery calcifications. HEPATOBILIARY: Punctate calcified granulomata.No focal hepatic lesions. Mild intra and extrahepatic biliary dilatation suggestive of reservoir effect status post cholecystectomy. GALLBLADDER: Not visualized. SPLEEN: No splenomegaly. Punctate calcified granulomata. PANCREAS: No focal masses or ductal dilatation. ADRENALS: No adrenal nodules KIDNEYS/URETERS: Kidneys enhance symmetrically. No hydronephrosis. Mildly complex cyst exophytic of the posterior upper pole of the right kidney. No stones. GI TRACT: No abnormal distention, wall thickening, or evidence of bowel obstruction. There are diverticula within the colon without evidence of diverticulitis. Appendix is normal. PELVIC ORGANS/BLADDER: The uterus is absent. LYMPH NODES: No lymphadenopathy. VESSELS: There is mild atherosclerotic disease in the aorta and major arterial branches. Retroaortic left renal vein. The common hepatic artery originates directly from the aorta. PERITONEUM / RETROPERITONEUM: No free air or fluid. BONES: Generalized osteopenia. Remote healed fracture of the posterolateral left 10th rib. Compression deformity of T12 with 30% loss of vertebral body heights consistent with compression fracture of uncertain age, however, possibly chronic as there was mild deformity on a prior lumbar spine series from 2017.. 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 SOFT TISSUES: Unremarkable. IMPRESSION: 1. Compression fracture of T12 of uncertain age, possibly chronic as there was mild compression deformity on a prior lumbar series from April 2018.. 2. Diverticulosis coli without diverticulitis. 3. Bilateral lower lobe pulmonary cysts. Signed by: Dr. Brando Miller M.D. on 02/24/2019 2:21 AM
[2019-02-24 05:36] LABS: BASOPHILS % 0.2 % (0.0-1.0); EOSINOPHILS # (AUTO) 0.1 (0.0-0.4); EOSINOPHILS % 2.6 % (0.0-6.0); HEMATOCRIT 31.6 % (34.2-44.1); HEMOGLOBIN 10.9 g/dL (12.0-16.0); LYMPHOCYTES # (AUTO) 0.7 (1.0-3.2); LYMPHOCYTES % 17.1 % (18.0-39.1); MEAN CORPUSCULAR HEMOGLOBIN 31.7 pg (28-32); MEAN CORPUSCULAR HGB CONC 34.5 g/dL (31-35); MEAN CORPUSCULAR VOLUME 91.9 fL (81-99); MONOCYTES # (AUTO) 0.7 (0.2-0.8); MONOCYTES % 17.1 % (4.4-11.3); NEUTROPHILS # (AUTO) 2.6 (2.1-6.9); NEUTROPHILS % 62.5 % (38.7-80.0); PLATELET COUNT 141 x10e3/uL (140-360); RED BLOOD COUNT 3.44 x10e6/uL (3.6-5.1); RED CELL DISTRIBUTION WIDTH 14.8 % (11.7-14.4)
[2019-02-24 05:48] LABS: INR 3.11; PROTHROMBIN TIME 32.8 seconds (11.9-14.5)
[2019-02-24 05:56] LABS: ANION GAP 12.3 mmol/L (8-16); BLOOD UREA NITROGEN 10 mg/dL (7-26); BUN/CREATININE RATIO 13 (6-25); CALCIUM 7.9 mg/dL (8.4-10.2); CARBON DIOXIDE 18 mmol/L (22-29); CHLORIDE 99 mmol/L (98-107); CREATININE, SERUM 0.75 mg/dL (0.57-1.11); EST GLOMERULAR FILTRATION RATE > 60 ML/MIN (60-); GLUCOSE 98 mg/dL (74-118); MAGNESIUM 1.5 MG/DL (1.3-2.1); POTASSIUM 3.3 mmol/L (3.5-5.1); SODIUM 126 mmol/L (136-145)
[2019-02-24] MEDS: LEVOTHYROXINE SODIUM 50 MCG TAB PO SCH (06:30)
[2019-02-24] MEDS: SODIUM CHLORIDE 0.9% 1000ML 1,000 ML IV SCH ×2 (07:50→15:14)
[2019-02-24] MEDS ORDERED: POTASSIUM CHLORIDE 20 MEQ TAB CR PO STA (08:00)
[2019-02-24] MEDS: LISINOPRIL 10 MG TAB PO SCH ×2 (08:30→16:43)
[2019-02-24] MEDS: PANTOPRAZOLE SOD 40 MG TABEC PO SCH (08:30)
[2019-02-24] MEDS: FUROSEMIDE 40 MG TAB PO SCH (08:30)
[2019-02-24] MEDS: ATENOLOL 50 MG TAB PO SCH (08:30)
[2019-02-24] MEDS: POTASSIUM CHLORIDE 10MEQ EA PO SCH (08:31)
[2019-02-24] MEDS: ALBUTEROL SULF 0.083% NEB SOLN 3 ML NEB NEB SCH ×4 (10:30→23:11)
[2019-02-24] MEDS: IPRATROPIUM BROMIDE 0.02% 2.5 ML NEB NEB SCH ×4 (10:30→23:11)
--- NOTE | 2019-02-24 10:58 | History and Physical ---
HISTORY OF PRESENT ILLNESS: The patient is an 88-year-old female with a history of CHF with history of atrial fibrillation and hypertension, who was in usual state of health until about a week prior to admission the patient started with diarrhea and also with generalized weakness, came into the emergency room and was seen in the office later on which labs were done. The patient's laboratory values show a sodium of 118. The patient was asked to come to the emergency room to get admitted. The patient gets admitted here for hyponatremia, dehydration, generalized weakness, and status post fall. The patient sustained a fall prior to admission, did hit her head and also her left upper extremity. PAST MEDICAL HISTORY: History of hypertension, history of hyperlipidemia, history of hypothyroidism, history of chronic anxiety, history of chronic pain syndrome, history of atrial fibrillation, and also congestive heart failure. The patient also has reflux esophagitis, and is on anticoagulation for atrial fibrillation. MEDICATIONS: Include atenolol 50 mg daily, furosemide 40 mg daily, hydrocodone 5/325 q.6 hours p.r.n., levothyroxine 50 mcg daily, lisinopril 10 mg twice a day, lorazepam 2 mg at nighttime p.r.n., pantoprazole 40 mg at nighttime, simvastatin 20 mg at nighttime, potassium chloride 10 mEq daily, and warfarin 3 mg daily. PAST SURGICAL HISTORY: History of cholecystectomy. The patient had 3 stents put in for CAD and history of appendectomy. FAMILY HISTORY: Positive for hypertension and CAD. ALLERGIES: INCLUDE CIPROFLOXACIN AND SULFA ANTIBIOTICS. REVIEW OF SYSTEMS: Positive for fall. Negative for chest pain. No shortness of breath. Positive for nausea. No vomiting. Positive for diarrhea. No constipation. No rectal bleeding. No hematochezia. No hematemesis. Positive for dizziness. No diplopia and no blurry vision at this time. PHYSICAL EXAMINATION: VITAL SIGNS: Temperature is 96.3, pulse of 83, respirations of 20, blood pressure is 126/58, pulse oximetry of 98% on 2 L of oxygen. HEENT: Normocephalic. The patient does have a traumatic ecchymosis on the forehead. The patient is frail looking and very tired looking. Pupils are reactive to light and accommodation. CVS: S1, S2 are regular. ABDOMEN: Nontender, nondistended. EXTREMITIES: No clubbing, no cyanosis. Positive for trace edema. LABORATORY DATA: Initial white count is 5.27, hemoglobin of 13, hematocrit 37, neutrophil count of 62. Chemistries; sodium of 119, potassium 4.3, BUN was 10, creatinine 0.83, ALT 421, AST 47, calcium 8.2, and glucose of 70. BNP was 336.7. Urine showed moderate amount of bacteria and positive for leukocyte esterase. Coags; INR has been 3.01 and 3.11. IMAGING STUDIES: Abdominal CT was done and pelvis was done showed compression fracture of the T12 vertebrae. Diverticulosis without diverticulitis. Bilateral lower lobe pulmonary cysts. Brain CT shows no acute abnormalities. Moderate chronic microvascular changes, chronic lacunar infarcts. Several intracranial calcified atherosclerosis and chronic inflammatory changes in the maxillary sinus. Cervical CT, status post fall, shows no acute abnormalities. Moderate chronic microvascular changes and no subluxation or fracture seen. Chest x-ray, bilateral pulmonary edema. ASSESSMENT: 1. Hyponatremia. 2. Dehydration. 3. History of atrial fibrillation. 4. History of cerebrovascular accident. 5. [id number] systolic heart failure. PLAN: 1. Plan is to gently hydrate the patient. IV fluids have been given at 75 mL an hour. Plan is to cut it off at 6:00 p.m. today in lieu of her heart failure. 2. Echocardiogram will be monitored. 3. The patient is on Rocephin, also cut off the warfarin for today and continue to monitor PT/INR on a daily basis. Further recommendation per clinical course. The patient is very fragile. We will keep monitoring her very regularly with lytes and with her warfarin. Further recommendation per clinical course. We will continue to monitor the patient. Possible discharge in 1 to 2 days. MD STAN AlyJ/MODL /[id number]
[2019-02-24] MEDS: CEFTRIAXONE SOD 1 GM/NS 50 ML 50 ML IV SCH (16:43)
[2019-02-24] MEDS: WARFARIN SOD 3 MG TAB PO SCH (16:44)
--- NOTE | 2019-02-24 19:27 | NUR ---
Patient received sitting up in bed. Family at bedside. Patient had no complaints of pain. No signs of respiratory distress. Fall precautions implemented. Patient instructed to call for assistance when needed. Call light within reach.
[2019-02-24] MEDS: SIMVASTATIN 20 MG TAB PO SCH (20:52)
[2019-02-25] VITALS (9 sets, daily range): BP systolic 110–145; BP diastolic 59–76
[2019-02-25] MEDS: HYDROCODONE/APAP 10MG-325MG TAB PO PRN ×4 (01:30→20:13)
[2019-02-25] MEDS: ALBUTEROL SULF 0.083% NEB SOLN 3 ML NEB NEB SCH ×6 (03:00→23:31)
[2019-02-25] MEDS: IPRATROPIUM BROMIDE 0.02% 2.5 ML NEB NEB SCH ×6 (03:00→23:31)
--- NOTE | 2019-02-25 03:20 | NUR ---
Patient's IV infiltrated in right hand. Old IV removed with tip intact. New IV inserted in left AC 22G.
[2019-02-25] MEDS: SODIUM CHLORIDE 0.9% 1000ML 1,000 ML IV SCH (04:26)
[2019-02-25] MEDS: LEVOTHYROXINE SODIUM 50 MCG TAB PO SCH (05:44)
[2019-02-25 05:49] LABS: BASOPHILS % 0.6 % (0.0-1.0); EOSINOPHILS # (AUTO) 0.1 (0.0-0.4); EOSINOPHILS % 1.6 % (0.0-6.0); HEMATOCRIT 34.2 % (34.2-44.1); HEMOGLOBIN 11.3 g/dL (12.0-16.0); LYMPHOCYTES % 19.4 % (18.0-39.1); MEAN CORPUSCULAR HEMOGLOBIN 31.6 pg (28-32); MEAN CORPUSCULAR VOLUME 95.5 fL (81-99); MONOCYTES % 18.8 % (4.4-11.3); NEUTROPHILS % 59.4 % (38.7-80.0); PLATELET COUNT 98 x10e3/uL (140-360); RED BLOOD COUNT 3.58 x10e6/uL (3.6-5.1); RED CELL DISTRIBUTION WIDTH 15.6 % (11.7-14.4)
[2019-02-25 06:01] LABS: INR 1.72; PROTHROMBIN TIME 20.8 seconds (11.9-14.5)
[2019-02-25 06:07] LABS: ANION GAP 10.5 mmol/L (8-16); BLOOD UREA NITROGEN 9 mg/dL (7-26); BUN/CREATININE RATIO 12 (6-25); CALCIUM 8.4 mg/dL (8.4-10.2); CARBON DIOXIDE 23 mmol/L (22-29); CHLORIDE 103 mmol/L (98-107); CREATININE, SERUM 0.76 mg/dL (0.57-1.11); EST GLOMERULAR FILTRATION RATE > 60 ML/MIN (60-); GLUCOSE 123 mg/dL (74-118); POTASSIUM 3.5 mmol/L (3.5-5.1); SODIUM 133 mmol/L (136-145)
--- NOTE | 2019-02-25 07:00 | NUR ---
BEDSIDE SHIFT REPORT GIVEN BY NIGHT RN. PT DENIES NEEDS AT THIS TIME.
--- NOTE | 2019-02-25 07:13 | NUR ---
Dr. Galan here to see patient. New order received to discontinue IV fluids.
--- NOTE | 2019-02-25 07:20 | NUR ---
Walking rounds done. Shift report given to oncoming nurse of patient status.
--- NOTE | 2019-02-25 07:53 | Progress Note ---
DATE: SUBJECTIVE: The patient is here for hyponatremia, weakness, history of dehydration, and also for gastroenteritis and diarrhea. The patient is currently feeling weak and low confusion is noted. The patient is having no chest pain. Positive for some shortness of breath and diarrhea. No vomiting or diarrhea. OBJECTIVE: VITAL SIGNS: Temperature is 96.9, pulse of 108, respirations of 18, blood pressure is 121/62, and pulse oximetry 100% on 2 L of oxygen. HEENT: Normocephalic and atraumatic. Pupils are reactive to light and accommodation. CVS: S1 and S2. Regular. ABDOMEN: Nontender and nondistended. EXTREMITIES: No clubbing, no cyanosis, and no edema. LABORATORY VALUES: Today's white count is , hemoglobin of 11.3, and hematocrit of 34.2. Coags, INR is 1.72 and from yesterday 3.11. Chemistry, sodium of 133, potassium is 3.5, BUN and creatinine within normal limits, and estimated GFR is above 60. TSH was 0.719. Troponin has been negative so far. ASSESSMENT AND PLAN: 1. Hyponatremia. Continue to monitor the patient's fluid status with cut off fluids now. 2. Echocardiogram for congestive heart failure. 3. History of atrial fibrillation, continue on warfarin and restart it today. 4. Urinary tract infection. The patient's urine culture preliminary is no growth, but the patient is on Rocephin at this time and will continue on the same. 5. Further recommendation per clinical course. Physical therapy will be instituted today and definitely restart her warfarin 3 mg. MD DEISY Aly/MODL /[id number]
[2019-02-25] MEDS: POTASSIUM CHLORIDE 10MEQ EA PO SCH (08:41)
[2019-02-25] MEDS: PANTOPRAZOLE SOD 40 MG TABEC PO SCH (08:41)
[2019-02-25] MEDS: FUROSEMIDE 40 MG TAB PO SCH (08:42)
[2019-02-25] MEDS: LISINOPRIL 10 MG TAB PO SCH ×2 (08:44→17:53)
[2019-02-25] MEDS: ATENOLOL 50 MG TAB PO SCH (08:49)
[2019-02-25] MEDS: WARFARIN SOD 3 MG TAB PO SCH (17:53)
[2019-02-25] MEDS: CEFTRIAXONE SOD 1 GM/NS 50 ML 50 ML IV SCH (17:53)
--- NOTE | 2019-02-25 19:00 | NUR ---
BEDSIDE REPORT GIVEN TO PACKING AND FINAL ASSEMBLY SUPERVISOR RN
[2019-02-25] MEDS: SIMVASTATIN 20 MG TAB PO SCH (20:15)
[2019-02-26] VITALS (7 sets, daily range): BP systolic 128–156; BP diastolic 59–75
[2019-02-26] MEDS: IPRATROPIUM BROMIDE 0.02% 2.5 ML NEB NEB SCH ×6 (03:00→23:05)
[2019-02-26] MEDS: ALBUTEROL SULF 0.083% NEB SOLN 3 ML NEB NEB SCH ×6 (03:00→23:05)
[2019-02-26] MEDS: HYDROCODONE/APAP 10MG-325MG TAB PO PRN ×3 (03:11→21:30)
[2019-02-26 05:30] LABS: BASOPHILS % 0.4 % (0.0-1.0); EOSINOPHILS # (AUTO) 0.2 (0.0-0.4); EOSINOPHILS % 3.7 % (0.0-6.0); HEMATOCRIT 31.9 % (34.2-44.1); HEMOGLOBIN 10.6 g/dL (12.0-16.0); LYMPHOCYTES # (AUTO) 0.8 (1.0-3.2); LYMPHOCYTES % 15.1 % (18.0-39.1); MEAN CORPUSCULAR HEMOGLOBIN 31.7 pg (28-32); MEAN CORPUSCULAR HGB CONC 33.2 g/dL (31-35); MEAN CORPUSCULAR VOLUME 95.5 fL (81-99); MONOCYTES # (AUTO) 0.7 (0.2-0.8); MONOCYTES % 14.3 % (4.4-11.3); NEUTROPHILS # (AUTO) 3.4 (2.1-6.9); NEUTROPHILS % 66.1 % (38.7-80.0); PLATELET COUNT 139 x10e3/uL (140-360); RED BLOOD COUNT 3.34 x10e6/uL (3.6-5.1); RED CELL DISTRIBUTION WIDTH 15.9 % (11.7-14.4)
[2019-02-26] MEDS: LEVOTHYROXINE SODIUM 50 MCG TAB PO SCH (05:34)
[2019-02-26 05:40] LABS: INR 1.4; PROTHROMBIN TIME 17.7 seconds (11.9-14.5)
[2019-02-26 05:48] LABS: ANION GAP 11.9 mmol/L (8-16); BLOOD UREA NITROGEN 12 mg/dL (7-26); BUN/CREATININE RATIO 16 (6-25); CALCIUM 8.3 mg/dL (8.4-10.2); CARBON DIOXIDE 23 mmol/L (22-29); CHLORIDE 100 mmol/L (98-107); CREATININE, SERUM 0.77 mg/dL (0.57-1.11); EST GLOMERULAR FILTRATION RATE > 60 ML/MIN (60-); GLUCOSE 105 mg/dL (74-118); POTASSIUM 3.9 mmol/L (3.5-5.1); SODIUM 131 mmol/L (136-145)
[2019-02-26] MEDS ORDERED: ENOXAPARIN SOD INJ 60 MG/0.6 ML SYR SC NR (06:45)
--- NOTE | 2019-02-26 06:50 | NUR ---
Dr. Galan here for rounding. Orders received.
--- NOTE | 2019-02-26 07:00 | NUR ---
BEDSIDE SHIFT REPORT RECEIVED FROM FAUSTO PFEIFFER. PT DENIES NEEDS AT THIS TIME.
--- NOTE | 2019-02-26 08:12 | Progress Note ---
DATE: SUBJECTIVE: The patient is here for hypovolemic hyponatremia corrected, sodium is better. The patient's condition is better, however, is very weak and lethargic. Had physical therapy yesterday and SNF was recommended. MEDICATIONS: Include: Levothyroxine, simvastatin, lisinopril, warfarin, Rocephin, atenolol, potassium chloride, pantoprazole, lorazepam 2 mg and also albuterol treatment. The patient has been started on Lovenox because of low INR. OBJECTIVE: VITAL SIGNS: Temperature is 99.0, pulse of 93, respirations of 21, blood pressure is 147/70, and pulse oximetry of 96% on 2 L of oxygen. HEENT: Normocephalic and atraumatic. Pupils are reactive to light and accommodation. CVS: S1 and S2 irregular. ABDOMEN: Nontender and nondistended. EXTREMITIES: No clubbing or cyanosis and trace edema. LABORATORY VALUE: White count is 5000, no left shift present. INR was 1.40. Chemistries; sodium of 133, potassium 3.9. BUN and creatinine are normal. Troponin 0.77 and TSH is 0.719. ASSESSMENT: 1. Hyponatremia, which is improved. Continue with monitoring BMP. 2. History of atrial fibrillation, continue on warfarin. The patient's INR was subtherapeutic. We will start her on Lovenox 60 mg q.12 hours until INR is between 2 and 3. 3. Urinary tract infection. Preliminary cultures no growth. 4. The patient is debilitated, will need SNF. PT has been ordered and we will continue to monitor the patient. Further recommendation per clinical course. We will continue to monitor the patient. MD STAN AlyJ/MODL /[id number]
[2019-02-26] MEDS: PANTOPRAZOLE SOD 40 MG TABEC PO SCH (08:58)
[2019-02-26] MEDS: POTASSIUM CHLORIDE 10MEQ EA PO SCH (08:59)
[2019-02-26] MEDS: FUROSEMIDE 40 MG TAB PO SCH (09:00)
[2019-02-26] MEDS: LISINOPRIL 10 MG TAB PO SCH ×2 (09:00→17:58)
[2019-02-26] MEDS: ATENOLOL 50 MG TAB PO SCH (09:01)
[2019-02-26] MEDS ORDERED: MORPHINE SULFATE 2 MG/ML SYR 1ML IV PRN (11:15)
[2019-02-26] MEDS: MORPHINE SULFATE INJ 4 MG/ML INJ 1ML IV PRN ×2 (11:40→17:46)
--- NOTE | 2019-02-26 16:03 | NUR ---
GAVE DAUGHTER CHOICES OF FACILITIES, SHE WILL GO LOOK AT BUILDINGS AND SPEAK WITH DR MUÑOZ TO FIND OUT WHERE HE CAN FOLLOW PT. WILL GIVE CHOICE TOMORROW.
[2019-02-26] MEDS: CEFTRIAXONE SOD 1 GM/NS 50 ML 50 ML IV SCH (17:58)
[2019-02-26] MEDS: WARFARIN SOD 3 MG TAB PO SCH (17:58)
[2019-02-26] MEDS ORDERED: SODIUM CHLORIDE 0.9% 1000ML 0 ML ONE (18:10)
[2019-02-26] MEDS ORDERED: SODIUM CHLORIDE 0.9% 250ML 250 ML ONE (18:14)
--- NOTE | 2019-02-26 19:00 | NUR ---
BEDSIDE SHIFT REPORT GIVEN TO [facility] RN. PT DENIES NEEDS AT THIS TIME.
[2019-02-26] MEDS: SIMVASTATIN 20 MG TAB PO SCH (21:25)
[2019-02-26] MEDS: LORAZEPAM 1 MG TAB PO PRN (21:30)
[2019-02-27] VITALS (8 sets, daily range): BP systolic 106–140; BP diastolic 54–73
--- NOTE | 2019-02-27 03:12 | NUR ---
02/26/19:Received patient lying in bed, patient is alert, introduced self to patient, safety and fall precautions maintained as per hospital protocol: bed in lowest position and locked, needed items beside bed and call ahn placed close to patient, patient instructed to use it to call nurses for any assistance needed, patient verbalized understanding. patient is currently stable, will continue to monitor.
[2019-02-27] MEDS: ALBUTEROL SULF 0.083% NEB SOLN 3 ML NEB NEB SCH ×6 (03:40→23:40)
[2019-02-27] MEDS: IPRATROPIUM BROMIDE 0.02% 2.5 ML NEB NEB SCH ×6 (03:40→23:40)
--- NOTE | 2019-02-27 05:42 | NUR ---
assessment complete no distress noted, update do poc voiced understanding l ac 22g no ss of infiltration noted,bruising noted to r knee, l forearm, and forehead, co pain to back medicated with prn meds, no other co voiced call light in reach will contineu to monitor
[2019-02-27] MEDS: MORPHINE SULFATE INJ 4 MG/ML INJ 1ML IV PRN ×2 (06:00→12:55)
[2019-02-27 06:15] LABS: BASOPHILS % 0.6 % (0.0-1.0); EOSINOPHILS # (AUTO) 0.2 (0.0-0.4); EOSINOPHILS % 3.7 % (0.0-6.0); HEMATOCRIT 30.9 % (34.2-44.1); HEMOGLOBIN 10.1 g/dL (12.0-16.0); LYMPHOCYTES % 18.8 % (18.0-39.1); MEAN CORPUSCULAR HEMOGLOBIN 31.3 pg (28-32); MEAN CORPUSCULAR HGB CONC 32.7 g/dL (31-35); MEAN CORPUSCULAR VOLUME 95.7 fL (81-99); MONOCYTES # (AUTO) 0.7 (0.2-0.8); MONOCYTES % 13.3 % (4.4-11.3); NEUTROPHILS # (AUTO) 3.3 (2.1-6.9); NEUTROPHILS % 63.4 % (38.7-80.0); PLATELET COUNT 143 x10e3/uL (140-360); RED BLOOD COUNT 3.23 x10e6/uL (3.6-5.1); RED CELL DISTRIBUTION WIDTH 15.9 % (11.7-14.4)
[2019-02-27 06:24] LABS: INR 1.24; PROTHROMBIN TIME 16.2 seconds (11.9-14.5)
[2019-02-27 06:32] LABS: ANION GAP 10.8 mmol/L (8-16); BLOOD UREA NITROGEN 14 mg/dL (7-26); BUN/CREATININE RATIO 20 (6-25); CALCIUM 8.8 mg/dL (8.4-10.2); CARBON DIOXIDE 30 mmol/L (22-29); CHLORIDE 94 mmol/L (98-107); EST GLOMERULAR FILTRATION RATE > 60 ML/MIN (60-); GLUCOSE 101 mg/dL (74-118); POTASSIUM 3.8 mmol/L (3.5-5.1); SODIUM 131 mmol/L (136-145)
--- NOTE | 2019-02-27 06:45 | NUR ---
patient endorsed to next shift for continuity of care.
[2019-02-27] MEDS: LEVOTHYROXINE SODIUM 50 MCG TAB PO SCH (06:55)
--- NOTE | 2019-02-27 07:00 | NUR ---
bedside rounds complete, no distress noted, updated on poc vocied understanding, denies pain at this time, call light in reach will continue ot monitor
[2019-02-27] MEDS: ATENOLOL 50 MG TAB PO SCH (08:47)
[2019-02-27] MEDS: PANTOPRAZOLE SOD 40 MG TABEC PO SCH (08:47)
[2019-02-27] MEDS: POTASSIUM CHLORIDE 10MEQ EA PO SCH (08:47)
[2019-02-27] MEDS: LISINOPRIL 10 MG TAB PO SCH ×2 (08:47→17:15)
[2019-02-27] MEDS: FUROSEMIDE 40 MG TAB PO SCH (08:52)
[2019-02-27] MEDS: HYDROCODONE/APAP 10MG-325MG TAB PO PRN ×3 (08:52→23:10)
--- NOTE | 2019-02-27 09:33 | Progress Note ---
DATE: SUBJECTIVE: The patient is here for urinary tract infection, history of atrial fibrillation, hyponatremia, generalized weakness and generalized pain, currently in pain. The patient was given morphine yesterday. The patient is more lethargic today. However, the pain intensity has come down. OBJECTIVE: VITAL SIGNS: Temperature is 99.9, pulse of 92, respirations of 18, blood pressure is 140/73, and pulse oximetry of 97% on 2 L of oxygen. HEENT: Normocephalic. The patient has a traumatic patch in the forehead. CVS: S1 and S2. Regular. ABDOMEN: Nontender. Nondistended. EXTREMITIES: No clubbing. No cyanosis. Signs of trace edema. LABORATORY VALUES: The patient's white count is normal at 5.17, hemoglobin of 10.1, and hematocrit of 30.9. Sodium of 131, potassium of 3.8, BUN of 14, creatinine 0.7. Coags, INR is 1.24. The patient's microbiology, urine cultures no growth and studies are still pending. ASSESSMENT AND PLAN: Hyponatremia, improved. Continue to monitor the BMP. Atrial fibrillation. The patient's INR is trending down despite being on Coumadin. We will increase warfarin to 4 mg, continue with the Lovenox 60 mg q.12 hours for anticoagulation. Urinary tract infection. Continue with antibiotics. We will discontinue the antibiotics today. The patient is debilitated, will need SNF. We will continue the patient's monitoring at SNF if being transferred today. Further recommendation per clinical course. The patient will need tighter pain control and aggressive physical therapy to rehabilitate her. Incentive spirometry is being advocated and the patient and daughter are aware of it. I had a lengthy discussion with her daughter. The patient and family are looking towards more comfort care. This will be provided in the assisted setting and/or as an outpatient with us. MD DEISY Aly/JOSE LUIS /[id number]
--- NOTE | 2019-02-27 11:35 | NUR ---
SPOKE WITH DAUGHTER SHE WOULD LIKE FIRST CHOICE IS [facility] AND IF THEY ARE UNABLE THEN [facility] SIGNED CHOICE LETTER FILED IN CHART, FAXED CLINICALS TO [phone] CALLED AND SPOKE WITH URI TO CONFIRM RECEIPT OF CLINICALS.
--- NOTE | 2019-02-27 14:30 | NUR ---
GOT CONFIRMATION FROM [facility], THEY ARE CONTACTING SHARIFA DAUGHTER TO GET TO FILL OUT PAPERWORK AND THEN WILL GIVE ROOM INFORMATION.
[2019-02-27] MEDS: CEFTRIAXONE SOD 1 GM/NS 50 ML 50 ML IV SCH (17:15)
[2019-02-27] MEDS: WARFARIN SOD 3 MG TAB PO SCH (17:15)
[2019-02-27] MEDS: SIMVASTATIN 20 MG TAB PO SCH (21:07)
[2019-02-28 00:04] VITALS: BP 148/69
[2019-02-28] MEDS: MORPHINE SULFATE INJ 4 MG/ML INJ 1ML IV PRN ×2 (01:15→09:00)
[2019-02-28] MEDS: ALBUTEROL SULF 0.083% NEB SOLN 3 ML NEB NEB SCH ×3 (04:00→13:09)
[2019-02-28] MEDS: IPRATROPIUM BROMIDE 0.02% 2.5 ML NEB NEB SCH ×3 (04:00→13:09)
[2019-02-28 04:28] VITALS: BP 148/74
[2019-02-28] MEDS: HYDROCODONE/APAP 10MG-325MG TAB PO PRN ×2 (05:10→13:37)
[2019-02-28] MEDS: LEVOTHYROXINE SODIUM 50 MCG TAB PO SCH (05:36)
[2019-02-28 06:00] LABS: INR 1.22
--- NOTE | 2019-02-28 07:34 | Progress Note ---
DATE: SUBJECTIVE: The patient is here for dehydration, history of atrial fibrillation, and history of hyponatremia. Currently, the patient is still complaining of pain. Pain medications have been administered. The patient is also on morphine 2 mg q.6 hours. The patient is continued with her home medications, which includes warfarin for atrial fibrillation. A SNF consult has been done. The patient needs to be excepted to [facility] and then can be transferred. OBJECTIVE: VITAL SIGNS: Today, temperature is 98.3, pulse of 84, respirations of 18, blood pressure is 148/74, and pulse oximetry of 100%. HEENT: Normocephalic and atraumatic. Pupils are reactive to light and accommodation. CVS: S1 and S2. Irregular. ABDOMEN: Nontender and nondistended. EXTREMITIES: No clubbing. No cyanosis. Positive for edema. LABORATORY VALUES: Yesterday, sodium was 131. ASSESSMENT: 1. Hyponatremia. 2. Dehydration. 3. Atrial fibrillation. 4. Hyperlipidemia. The patient's laboratory values coags today is 1.22 and PT 16.01. The patient will be continued on Lovenox. We will increase the warfarin to 5 mg today. Further recommendation per clinical course. The patient can be transferred to [facility] setting when accepted. MD STAN AlyJ/MODL /[id number]
[2019-02-28 07:53] VITALS: BP 175/87
[2019-02-28] MEDS: PANTOPRAZOLE SOD 40 MG TABEC PO SCH (08:40)
[2019-02-28] MEDS: ATENOLOL 50 MG TAB PO SCH (08:40)
[2019-02-28] MEDS: POTASSIUM CHLORIDE 10MEQ EA PO SCH (08:40)
[2019-02-28] MEDS: LISINOPRIL 10 MG TAB PO SCH (08:40)
[2019-02-28] MEDS: FUROSEMIDE 40 MG TAB PO SCH (09:00)
[2019-02-28 09:20] VITALS: BP 175/87
--- NOTE | 2019-02-28 09:20 | NUR ---
assessment complete no distress noted, respirations even/unlabored, denies pain at this time, l ac 20g no ss of infiltration noted, no other co vocied call light in reach will continue to monitor
[2019-02-28 11:55] VITALS: BP 134/64
[2019-02-28] MEDS ORDERED: ENOXAPARIN SOD INJ 60 MG/0.6 ML SYR SC SCH (12:00)
--- NOTE | 2019-02-28 14:25 | NUR ---
REPORT CALLED TO JOSS PFEIFFER, AT [facility], [facility] NOTIFIED FOR TRANSPORT.
[2019-02-28 15:04] VITALS: BP 144/70
[2019-02-28] MEDS ORDERED: WARFARIN SOD 5 MG TAB PO SCH (17:00)
== END 2019-02-28 15:12 | DRG 640 ==
LOC: ER 13:45 → ERHOLD 14:12 → MED/SURG2 16:34 → OBSVTOIN 02-24 11:01
PROVIDERS: ADMIT Family Medicine; ATTEND Family Medicine
DX: E87.1 Hypo-osmolality and hyponatremia (principal); I50.23 Acute on chronic systolic (congestive) heart failure; I48.91 Unspecified atrial fibrillation; Z79.01 Long term (current) use of anticoagulants; E78.5 Hyperlipidemia, unspecified; E03.9 Hypothyroidism, unspecified; F41.9 Anxiety disorder, unspecified; G89.4 Chronic pain syndrome; E86.0 Dehydration; I11.0 Hypertensive heart disease with heart failure; Z86.73 Personal history of transient ischemic attack (TIA), and cerebral infarction without residual deficits
CPT/HCPCS: 36415; 70450; 71045; 72125; 74177; 80048; 80053; 81001; 82550; 82553; 83735; 83880; 84443; 84484; 85025; 85610; 85730; 87086; 93005; 93306; 94640; 97139; 99284; G0378; J0696; J1650; J2270; J2405; J7030; J7050; Q9967

== ENCOUNTER 2019-03-11 20:22 | Observation (INO) | payer MEDICARE ==
[~2019-03-11] VITALS: Ht 165.1 cm; Wt 63.5 kg
[~2019-03-11 20:22] MED LIST changes: +COUMADIN3 MG PO; +FUROSEMIDE40 MG PO; +POTASSIUM CHLO10 ME1 PO
--- OUTSIDE RECORDS SUMMARY | 2019-03-11 20:26 | XMS REPORT | Clinical Summary ---
Author Author [facility] Address Unknown Phone Unavailable Care Team Providers Care Reimbursement Representative Name Role Phone Shon Galan MD PCP [...] MG tablet mouth 2 (two) times daily. 08/14/2018 furosemide (LASIX) 40 MG Take 1 tablet 30 tablet 0 tablet (40 mg total) 7 by mouth daily. Active Problems Problem Noted Date Atypical chest [...] 104/31 cm/s. L: 16-49% reduction, 49/11 cm/s. (02/14/14). Chest pain 07/31/2014 Hypothyroidism 01/26/2014 Atrial fibrillation 01/23/2014 CAD (coronary artery disease) 04/17/2013 Angina, class III 04/09/2013 Abnormal nuclear cardiac imaging test 03/18/2013 Overview: Mild ischemia in the Basal Inferolateral region. The defect is small and of questionable significance. Post stress LV is moderately enlarged in size. Post stress EF=63%. (08/04/14). Insomnia Encounters Care Team Description Date Type Specialty Philippe Chapman MD Massumi, Mahsa Abolfathian, MD Tran, Tuan Quoc, MD (Mark) Coronary artery disease involving [place] coronary artery of [place] heart, angina presence unspecified (Primary Dx); Chest pain, unspecified type; Abdominal discomfort 08/29/2018 Emergency Cardiology - 08/30/2018 08/29/2018 Orders Only General Internal Medicine 08/29/2018 Travel after 03/10/2018 Immunizations Name Dates Previously Given Next Due [...] Lot Implanted Type Area Manufactur er 05/29/2018 [id number] / / [id number] Device Clsr Angio-Seal Vip 6fr Cardiovasc [employer]in [employer] [id number] - [id number] ular MED:CARDIA Implanted: Qty: 1 on 08/18/2017 by Mando Morgan MD 11/29/2018 [id number] / / [id number] Device Clsr Angio-Seal Vip 6fr Cardiovasc Right: Groin [facility] [employer] [id number] - [id number] ular MED:CARDIA Implanted: Qty: 1 on 02/28/2018 [...] ms QTC Calculatio n(Bazett) 451 ms R Magdalena 13 degrees T Magdalena 31 degrees Atrial fibrillati on with premature [...] VASCULAR DIAGRAM -SCAN 04/26/2018 11:41 AM CDT after 03/10/2018 Results * RHYTHM STRIP - SCAN (08/31/2018 12:00 PM CDT) Narrative Performed At * CBC with platelet count + automated diff (08/30/2018 5:54 AM CDT) Only the most recent of 2 results within the time period is included. WBC 4.0 3.5 - 10.5 K/L [facility] RBC 3.63 (L) 3.93 - 5.22 M/L [facility] Hemoglobin 11.7 11.2 - 15.7 GM/DL [facility] Hematocrit 36.7 34.1 - 44.9 % [facility] MCV 101.1 (H) 79.4 - 94.8 fL [facility] MCH 32.2 25.6 - 32.2 pg [facility] MCHC 31.9 (L) 32.2 - 35.5 GM/DL [facility] RDW 13.7 11.7 - 14.4 % [facility] Platelets 116 (L) 150 - 450 K/CU MM [facility] MPV 10.4 9.4 - 12.3 fL [facility] nRBC 0 0 - 0 /100 WBC [facility] % Neutros 51 % [facility] % Lymphs 28 % [facility] % Monos 17 % [facility] % Eos 3 % [facility] % Baso 1 % [facility] # Neutros 2.04 1.56 - 6.13 K/L [facility] # Lymphs 1.14 (L) 1.18 - 3.74 K/L [facility] # Monos 0.67 (H) 0.24 - 0.36 K/L [facility] # Eos 0.13 0.04 - 0.36 K/L [facility] # Baso 0.03 0.01 - 0.08 K/L [facility] Immature 0 0 - 1 % [facility] Granulocytes-[facility] Specimen Blood Performing Organization Address City/State/Zipcode Phone Number [facility] [address] [place] [address] MEDICAL CENTER * Prothrombin time/INR (08/30/2018 5:54 AM CDT) Protime 26.3 (H) 11.7 - 14.7 seconds [facility] INR 2.4 <=5.9 [facility] Specimen Blood Narrative Performed At RECOMMENDED COUMADIN/WARFARIN INR THERAPY RANGES [facility] STANDARD DOSE: 2.0 - 3.0 Includes: PROPHYLAXIS for venous thrombosis, [facility] systemic embolization; TREATMENT for venous thrombosis and/or pulmonary embolus. HIGH RISK: Target INR is 2.5-3.5 for patients with mechanical heart valves. Performing Organization Address City/State/Zipcode Phone Number [address] [address] [facility] * Magnesium (08/30/2018 5:54 AM CDT) Only the most recent of 2 results within the time period is included. Magnesium 2.0 1.6 - 2.6 mg/dL [facility] Specimen Blood Performing Organization Address [facility] Phone Number [address] [address] [facility] * Basic Metabolic Panel (08/30/2018 5:54 AM CDT) Only the most recent of 2 results within the time period is included. Sodium 135 (L) 136 - 145 meq/L [facility] Potassium 4.0 3.5 - 5.1 meq/L [facility] Chloride 104 98 - 107 meq/L [facility] CO2 22 22 - 29 meq/L [facility] BUN 19 7 - 21 mg/dL [facility] Creatinine 0.78 0.57 - 1.25 mg/dL [facility] Glucose 94 70 - 105 mg/dL [facility] Calcium 8.8 8.4 - 10.2 mg/dL [facility] EGFR 70Comment: ESTIMATED GFR IS mL/min/1.73 sq m [facility] NOT ACCURATE CREATININE [facility] CLEARANCE IN PREDICTING GLOMERULAR FILTRATION RATE. ESTIMATED GFR IS NOT APPLICABLE FOR DIALYSIS PATIENTS. Specimen Blood Performing Organization Address City/[facility]/Zipcode Phone Number [address] [address] [facility] * Troponin I (08/30/2018 12:35 AM CDT) Only the most recent of 3 results within the time period is included. Troponin I 0.04 (H) 0.00 - 0.03 ng/mL [facility] Specimen Blood Narrative Performed At Troponin I (TnI) levels must be interpreted in the context of the presenting [facility] symptoms and the clinical findings. Elevated TnI levels indicate myocardial [facility] damage, but are not specific for ischemic heart disease. Elevated TnI levels are seen in patients with other cardiac conditions (including myocarditis and congestive heart failure), and slight TnI elevations occur in patients with other conditions, including sepsis, renal failure, acidosis, acute neurological disease, and persistent tachyarrhythmia. Performing Organization Address City/[facility] Phone Number [facility] [address] [place] [address] [facility] * Creatine Kinase (CK), Total and MB (08/30/2018 12:35 AM CDT) Only the most recent of 2 results within the time period is included. Total CK 69 29 - 200 U/L [facility] CK-MB 1.3 0.0 - 6.6 ng/mL [facility] MB Relative Index 1.9 % [facility] Specimen Blood Narrative Performed At CK-MB Reference Range: [facility] <6.7Normal [facility] 6.7-10.0Borderline >10.0 Abnormal Performing Organization Address City/[facility] Phone Number [facility] [address] [place] [address] [facility] * ECG 12 lead (08/29/2018 7:03 PM CDT) Only the most recent of 2 results within the time period is included. Specimen Narrative Performed At Ventricular Rate 70 BPM GE MUSE Atrial Rate 300 BPM QRS Duration 78 ms Q-T Interval 418 ms QTC Calculation(Bazett) 451 ms R Magdalena 13 degrees T Magdalena 31 degrees Atrial fibrillation with premature ventricular [...] 418 ms QTC Calculation(Bazett) 451 ms R Magdalena 13 degrees T Magdalena 31 degrees Atrial fibrillation with premature ventricular or aberrantly conducted complexes Abnormal ECG When compared with ECG of 29-AUG-2018 12:34, No significant change was found Confirmed by Ashley ALEXANDRA BASANT ([id number]) on 08/30/2018 8:16:21 AM Performing Organization Address City/State/Zipcode Phone Number [facility] * CT abdomen/pelvis without iv contrast (08/29/2018 4:16 PM CDT) Specimen Narrative Performed At FINAL REPORT [employer] CT of the abdomen and pelvis, without [...] MD Report Verified Date/Time:08/29/2018 16:54:56 Reading Location: [facility] [id number] Ortho Consult Reading Room Procedure [...] Report Verified Date/Time: 08/29/2018 16:54:56 Reading Location: [address] Ortho Consult Reading Room Performing Organization Address City/State/[facility] Phone Number GE [facility] * ECG/EKG Interpretation (08/29/2018 1:44 PM CDT) [...] Protime 23.6 (H) 11.7 - 14.7 seconds [facility] INR 2.1 <=5.9 [facility] PTT 30.6 22.5 - 36.0 seconds [facility] Specimen Blood Narrative Performed At RECOMMENDED COUMADIN/WARFARIN INR THERAPY RANGES [facility] STANDARD DOSE: 2.0 - 3.0 Includes: PROPHYLAXIS for venous thrombosis, [facility] systemic embolization; TREATMENT for venous thrombosis and/or pulmonary embolus. HIGH RISK: Target INR is 2.5-3.5 for patients with mechanical heart valves. Performing Organization Address City/State/Zipcode Phone Number [facility] [address] [place] [address] MEDICAL CENTER * B-type Natriuretic Factor (BNP) (08/29/2018 1:29 PM CDT) BNP 620 (H) 0 - 100 pg/mL [facility] Specimen Blood Performing Organization Address City/State/Zipcode Phone Number [facility] [address] [phone] [facility] * XR chest 2 views (08/29/2018 1:16 PM CDT) Specimen Narrative Performed At FINAL REPORT [facility] EXAM: Frontal and lateral chest radiograph HISTORY [...] MD Report Verified Date/Time:08/29/2018 14:06:34 Reading Location: [facility] Mammo Reading Room Procedure Note Interface, External Ris [...] Report Verified Date/Time: 08/29/2018 14:06:34 Reading Location: [facility] Mammo Reading Room Performing Organization Address City/State/Zipcode Phone Number [facility] * VASCULAR DIAGRAM -SCAN (04/26/2018 11:41 AM CDT) Narrative Performed At after 03/10/2018 Insurance Payer Benefit Subscriber ID Type Phone Address Plan / Group MEDICARE MEDICARE A xxxxxxxxxxx Medicare B MCR SUPPLEMENT/INDIVIDUAL AARP/UNITE xxxxxxxxxxx [facility] Advance Directives For more information, please contact: [facility] [address] [place] [address] Date Inactivated Comments Code Status [...]
--- OUTSIDE RECORDS SUMMARY | 2019-03-11 20:27 | XMS REPORT | Continuity of Care Document ---
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 Active Problem 03/05/2019 Raul Dias Vitamin D deficiency, unspecified Active Problem 03/05/2019 Raul Dias Lumbago Active Problem 03/05/2019 Raul Dias Age-related osteoporosis without current pathological fracture Active Problem 03/05/2019 Raul Dias Polymyalgia rheumatica Active Problem 03/05/2019 Raul Dias 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, subsequent encounter Active Problem 03/05/2019 Raul Dias Chronic prescription opiate use Active Diagnosis 02/05/2019 Raul Dias Closed wedge compression fracture of twelfth thoracic vertebra, initial encounter Active Diagnosis 06/30/2018 Raul Dias Cystitis, unspecified with hematuria Active Diagnosis 12/23/2017 Raul Dias Muscle spasm Active Diagnosis 11/09/2018 Raul Dias Medications Medication Details Route Status Patient Instructions Ordering Provider Order Date Source PredniSONE 1 tablet Orally Active 5 MG Orally Once a day [place] 09/04/2018 Raul Dias Vitamin D (Ergocalciferol) 1 capsule Orally Active 05021 UNIT Orally Once a week Vu 06/07/2018 [...] Active 10 MG Orally once a day [place] 10/03/2017 Raul Dietricher Metoprolol Tartrate 1 tablet Orally Active 25 MG Orally Once a day [place] Raul Dias Levothyroxine Sodium 1 tablet Orally Active 75 MCG Orally Once a day [facility] Dias Furosemide 1 tablet Orally Active 40 MG Orally Once a day [place] Raul Dias Lorazepam 1 Tablet NA Active 2 mg Once at bed time [facility] Dias Warfarin Sodium 1 tablet Orally Active 3.5 MG Orally Once a day [place] Raul Dias Calcium 600 + D 2 tablets Orally Active 600-200 MG-UNIT Orally Once a day [place] Raul Dias Hydrocodone-Acetaminophen 1 tablet as needed Orally Active 7.5- 325 MG Orally every 6 hrs [place] Raul Dietricher Ranexa 1 tablet Orally Active 500 MG Orally Once a day [facility] Lisinopril 1 tablet Orally Active 5 MG Orally Once a day [place] Raul Dias Amlodipine Besylate 1 tablet Orally Active 5 MG Orally Once a day [facility] Dias Simvastatin 1 tablet every evening Orally Active 20 MG Orally Once a day [facility] Amiodarone HCl 1 tablet Orally Active 200 MG Orally Once a day [place] Raul Dias PredniSONE 1 tablet Orally Active 5 MG [facility] Atenolol 1 tablet Orally Active 25 MG Orally Once a day [facility] Dias Vitamin D (Ergocalciferol) as directed Orally Active 2000 UNIT Orally [place] Raul Dias Vitamin D (Ergocalciferol) 1 capsule Orally Active 72819 UNIT Orally Once a week [place] Raul Dias Allergies, Adverse Reactions, Alerts Substance [...] Dias Temperature Oral (F) 96.0 F 11/01/2018 Raul Dias Heart Rate 80 11/01/2018 Raul Dias [...]
--- OUTSIDE RECORDS SUMMARY | 2019-03-11 20:27 | XMS REPORT ---
Author Author Raúl Dias Organization [employer] Address Unknown Phone Unavailable Care Team Providers Care Metrologist Name Role Phone Raúl Dias CP Unavailable Allergies No Known Allergies Problems Problem Type Condition Code Onset Dates Condition Status Problem Other forms of systemic lupus erythematosus M32.8 Active Problem Other alf (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 Z79.899 Active Problem Vitamin [...] Medications Results No Known Results Summary Purpose [employer] Submission
[2019-03-11] MEDS ORDERED: ASPIRIN 81 MG CHEW TAB PO ONE (21:30)
[2019-03-11 21:49] LABS: BASOPHILS % 0.3 % (0.0-1.0); EOSINOPHILS # (AUTO) 0.1 (0.0-0.4); EOSINOPHILS % 0.9 % (0.0-6.0); HEMATOCRIT 34.9 % (34.2-44.1); HEMOGLOBIN 11.6 g/dL (12.0-16.0); LYMPHOCYTES # (AUTO) 1.6 (1.0-3.2); LYMPHOCYTES % 24.4 % (18.0-39.1); MEAN CORPUSCULAR HEMOGLOBIN 32.1 pg (28-32); MEAN CORPUSCULAR HGB CONC 33.2 g/dL (31-35); MEAN CORPUSCULAR VOLUME 96.7 fL (81-99); MONOCYTES # (AUTO) 0.7 (0.2-0.8); MONOCYTES % 10.8 % (4.4-11.3); NEUTROPHILS # (AUTO) 4.2 (2.1-6.9); NEUTROPHILS % 63.3 % (38.7-80.0); PLATELET COUNT 219 x10e3/uL (140-360); RED BLOOD COUNT 3.61 x10e6/uL (3.6-5.1); RED CELL DISTRIBUTION WIDTH 15.9 % (11.7-14.4)
[2019-03-11 21:58] LABS: ALANINE AMINOTRANSFERASE 20 IU/L (0-55); ALBUMIN 3.6 g/dL (3.5-5.0); ALKALINE PHOSPHATASE 28 IU/L (40-150); ANION GAP 17.4 mmol/L (8-16); BLOOD UREA NITROGEN 17 mg/dL (7-26); BUN/CREATININE RATIO 20 (6-25); CARBON DIOXIDE 23 mmol/L (22-29); CHLORIDE 99 mmol/L (98-107); CREATINE KINASE 38 IU/L (29-168); CREATININE, SERUM 0.83 mg/dL (0.57-1.11); EST GLOMERULAR FILTRATION RATE > 60 ML/MIN (60-); GLUCOSE 136 mg/dL (74-118); POTASSIUM 3.4 mmol/L (3.5-5.1); SODIUM 136 mmol/L (136-145)
--- NOTE | 2019-03-11 22:04 | Diagnostic Imaging Report ---
EXAMINATION: Head CT without contrast. HISTORY:Seizure. COMPARISON:CT brain from 02/23/2019. TECHNIQUE: Multidetector axial images were obtained from the foramen magnum to the vertex without contrast. The images were reconstructed using brain and bone algorithms. Thin section brain images were reformatted into coronal and sagittal planes. Dose modulation, iterative reconstruction, and/or weight based adjustment of the mA/kV was utilized to reduce the radiation dose to as low as reasonably achievable. Intravenous contrast: None IMAGE QUALITY: Acceptable. FINDINGS: Skull/scalp: No lytic or blastic. lesions. No surgical changes. Parenchyma: Unchanged chronic lacunar infarct in right frontal [place] radiata/body of caudate. Nonspecific bilateral frontoparietal confluent and patchy white matter hypodensity are likely related to small vessel ischemic changes. No acute hemorrhage, mass or acute major vascular territorial infarct. Arteries: No density suggestive of thrombosis. Atherosclerotic calcification in bilateral carotid siphon and V4 segment of the vertebral arteries. Dural sinuses: No abnormal density suggestive of thrombosis. Ventricles: Mild compensated dilatation due to volume loss. No acute hydrocephalus. Extra-axial spaces: No abnormal density. Brain volume: Normal for age. Craniocervical junction: No mass, Chiari malformation, or basilar invagination. Sella: No mass. Paranasal/mastoid sinuses: Complete opacification of left maxillary sinus with few pockets of air and intrinsic hyperdensities which may represent inspissated secretions/calcifications or fungal sinusitis in appropriate clinical setting. IMPRESSION: 1. No acute intracranial abnormality, particularly no acute hemorrhage, mass or acute major vascular territorial infarct. 2. Moderate supratentorial white matter microvascular ischemic changes. 3. 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 Signed by: Dr. Toshia Hoang M.D. on 03/11/2019 10:01 PM
[2019-03-11 22:06] LABS: CLARITY,URINE HAZY (CLEAR); COLOR,URINE YELLOW (YELLOW); LEUKOCYTE ESTERASE ,URINE NEGATIVE (NEGATIVE); NITRITE,URINE NEGATIVE (NEGATIVE)
[2019-03-11 22:08] LABS: BILIRUBIN,URINE NEGATIVE (NEGATIVE); KETONES,URINE NEGATIVE (NEGATIVE); PROTEIN,URINE DIPSTICK TRACE (NEGATIVE); URINE UROBILINOGEN 0.2 mg/dL (0.2 - 1)
--- NOTE | 2019-03-11 22:08 | Diagnostic Imaging Report ---
Examination: Single AP view of the chest. COMPARISON: Portable chest 02/23/2019 INDICATION: Seizure IMPRESSION: 1. Lines and Tubes: None 2. Lungs are well-inflated. Prominence of the interstitial markings bilaterally, which is similar to prior exam, suspicious for bilateral interstitial pulmonary edema. No consolidation or pleural effusion. Stable elevation of the right hemidiaphragm. 3. Stable enlargement of the cardiac silhouette. Central pulmonary venous congestion. Tortuous aorta. Stable rightward deviation of the trachea, likely due to prominent aortic arch. 4. No acute bony abnormalities. Mild osteopenia. Signed by: Dr. Kwan Canseco M.D. on 03/11/2019 10:04 PM
[2019-03-11 22:11] LABS: BACTERIA,URINE FEW /HPF; EPITHELIAL CELLS,URINE MODERATE /LPF
[2019-03-11] MEDS ORDERED: POTASSIUM CHLO20 ME1 PO (23:37)
[2019-03-11] MEDS ORDERED: FUROSEMIDE40 MG PO (23:38)
--- OUTSIDE RECORDS SUMMARY | 2019-03-11 23:38 | XMS REPORT | Clinical Summary ---
Author Author PALAK [facility] Address Unknown Phone Unavailable Care Team Providers Care Transportation Consultant Name Role Phone Shon Galan MD PCP [...] Quoc, MD (Mark) Coronary artery disease involving [place] coronary artery of [place] heart, angina presence unspecified (Primary Dx); Chest [...] Lot Implanted Type Area Manufactur er 05/29/2018 [id number] / / [id number] Device Clsr Angio-Seal Vip 6fr Cardiovasc Groin [facility] [employer] [id number] - [id number] ular MED:CARDIA Implanted: Qty: 1 on 08/18/2017 by Mando Morgan MD 11/29/2018 [id number] / / [id number] Device Clsr Angio-Seal Vip 6fr Cardiovasc Right: Groin [facility] [employer] [id number] - [id number] ular MED:CARDIA Implanted: Qty: 1 on 02/28/2018 [...] ms QTC Calculatio n(Bazett) 451 ms R Pullman 13 degrees T Pullman 31 degrees Atrial fibrillati on with premature [...] included. WBC 4.0 3.5 - 10.5 K/L [facility] RBC 3.63 (L) 3.93 - 5.22 M/L [facility] Hemoglobin 11.7 11.2 - 15.7 GM/DL [facility] Hematocrit 36.7 34.1 - 44.9 % [facility] MCV 101.1 (H) 79.4 - 94.8 fL [facility] MCH 32.2 25.6 - 32.2 pg [facility] MCHC 31.9 (L) 32.2 - 35.5 GM/DL [facility] RDW 13.7 11.7 - 14.4 % [facility] Platelets 116 (L) 150 - 450 K/CU MM [facility] MPV 10.4 9.4 - 12.3 fL [facility] nRBC 0 0 - 0 /100 WBC [facility] % Neutros 51 % [facility] % Lymphs 28 % [facility] % Monos 17 % [facility] % Eos 3 % [facility] % Baso 1 % [facility] # Neutros 2.04 1.56 - 6.13 K/L [facility] # Lymphs 1.14 (L) 1.18 - 3.74 K/L [facility] # Monos 0.67 (H) 0.24 - 0.36 K/L [facility] # Eos 0.13 0.04 - 0.36 K/L [facility] # Baso 0.03 0.01 - 0.08 K/L [facility] Immature 0 0 - 1 % [facility] Granulocytes-[facility] Specimen Blood Performing Organization Address City/State/Zipcode Phone Number [facility] [address] [place] [address] [facility] * Prothrombin time/INR (08/30/2018 5:54 AM CDT) Protime 26.3 (H) 11.7 - 14.7 seconds [facility] INR 2.4 <=5.9 [facility] Specimen Blood Narrative Performed At RECOMMENDED COUMADIN/WARFARIN INR THERAPY RANGES [facility] STANDARD DOSE: 2.0 - 3.0 Includes: PROPHYLAXIS for venous thrombosis, [facility] systemic embolization; TREATMENT for venous thrombosis and/or pulmonary embolus. HIGH RISK: Target INR is 2.5-3.5 for patients with mechanical heart valves. Performing Organization Address City/State/Zipcode Phone Number [address] [address] [facility] * Magnesium (08/30/2018 5:54 AM CDT) Only the most recent of 2 results within the time period is included. Magnesium 2.0 1.6 - 2.6 mg/dL [facility] Specimen Blood Performing Organization Address [facility] Phone Number [address] [address] [facility] * Basic Metabolic Panel (08/30/2018 5:54 AM CDT) Only the most recent of 2 results within the time period is included. Sodium 135 (L) 136 - 145 meq/L [facility] Potassium 4.0 3.5 - 5.1 meq/L [facility] Chloride 104 98 - 107 meq/L [facility] CO2 22 22 - 29 meq/L [facility] BUN 19 7 - 21 mg/dL [facility] Creatinine 0.78 0.57 - 1.25 mg/dL [facility] Glucose 94 70 - 105 mg/dL [facility] Calcium 8.8 8.4 - 10.2 mg/dL [facility] EGFR 70Comment: ESTIMATED GFR IS mL/min/1.73 sq m [facility] NOT ACCURATE CREATININE [facility] CLEARANCE IN PREDICTING GLOMERULAR FILTRATION RATE. ESTIMATED GFR IS NOT APPLICABLE FOR DIALYSIS PATIENTS. Specimen Blood Performing Organization Address City/[facility]/Zipcode Phone Number [address] [address] [facility] * Troponin I (08/30/2018 12:35 AM CDT) Only the most recent of 3 results within the time period is included. Troponin I 0.04 (H) 0.00 - 0.03 ng/mL [facility] Specimen Blood Narrative Performed At Troponin I (TnI) levels must be interpreted in the context of the presenting [facility] symptoms and the clinical findings. Elevated TnI levels indicate myocardial [facility] damage, but are not specific for ischemic heart disease. Elevated TnI levels are seen in patients with other cardiac conditions (including myocarditis and congestive heart failure), and slight TnI elevations occur in patients with other conditions, including sepsis, renal failure, acidosis, acute neurological disease, and persistent tachyarrhythmia. Performing Organization Address City/[facility] Phone Number [facility] [address] [place] [address] [facility] * Creatine Kinase (CK), Total and MB (08/30/2018 12:35 AM CDT) Only the most recent of 2 results within the time period is included. Total CK 69 29 - 200 U/L [facility] CK-MB 1.3 0.0 - 6.6 ng/mL [facility] MB Relative Index 1.9 % [facility] Specimen Blood Narrative Performed At CK-MB Reference Range: [facility] <6.7Normal [facility] 6.7-10.0Borderline >10.0 Abnormal Performing Organization Address City/[facility] Phone Number [facility] [address] [place] [address] [facility] * ECG 12 lead (08/29/2018 7:03 PM CDT) Only the most recent of 2 results within the time period is included. Specimen Narrative Performed At Ventricular Rate 70 BPM GE MUSE Atrial Rate 300 BPM QRS Duration 78 ms Q-T Interval 418 ms QTC Calculation(Bazett) 451 ms R Pullman 13 degrees T Pullman 31 degrees Atrial fibrillation with premature ventricular [...] 418 ms QTC Calculation(Bazett) 451 ms R Pullman 13 degrees T Pullman 31 degrees Atrial fibrillation with premature ventricular or aberrantly conducted complexes Abnormal ECG When compared with ECG of 29-AUG-2018 12:34, No significant change was found Confirmed by Ashley ALEXANDRA BASANT ([id number]) on 08/30/2018 8:16:21 AM Performing Organization Address City/State/Zipcode Phone Number [employer] * CT abdomen/pelvis without iv contrast (08/29/2018 4:16 PM CDT) Specimen Narrative Performed At FINAL REPORT [place] CT of the abdomen and pelvis, without [...] MD Report Verified Date/Time:08/29/2018 16:54:56 Reading Location: [facility] [id number] Ortho Consult Reading Room Procedure Note [...] Report Verified Date/Time: 08/29/2018 16:54:56 Reading Location: [address] Ortho Consult Reading Room Performing Organization Address City/State/[facility] Phone Number [facility] * ECG/EKG Interpretation [...] Protime 23.6 (H) 11.7 - 14.7 seconds [facility] INR 2.1 <=5.9 [facility] PTT 30.6 22.5 - 36.0 seconds [facility] Specimen Blood Narrative Performed At RECOMMENDED COUMADIN/WARFARIN INR THERAPY RANGES [facility] STANDARD DOSE: 2.0 - 3.0 Includes: PROPHYLAXIS for venous thrombosis, [facility] systemic embolization; TREATMENT for venous thrombosis and/or pulmonary embolus. HIGH RISK: Target INR is 2.5-3.5 for patients with mechanical heart valves. Performing Organization Address City/State/Zipcode Phone Number [facility] [address] [place] [address] [facility] * B-type Natriuretic Factor (BNP) (08/29/2018 1:29 PM CDT) BNP 620 (H) 0 - 100 pg/mL [facility] Specimen Blood Performing Organization Address City/State/Zipcode Phone Number [facility] [address] [phone] [facility] * XR chest 2 views (08/29/2018 1:16 PM CDT) Specimen Narrative Performed At FINAL REPORT [facility] [employer] EXAM: Frontal and lateral chest radiograph HISTORY [...] MD Report Verified Date/Time:08/29/2018 14:06:34 Reading Location: [facility] Mammo Reading Room Procedure Note Interface, External [...] Report Verified Date/Time: 08/29/2018 14:06:34 Reading Location: [facility] Mammo Reading Room Performing Organization Address City/State/Zipcode Phone Number [employer] * VASCULAR DIAGRAM -SCAN (04/26/2018 11:41 AM CDT) Narrative Performed At after 03/10/2018 Insurance Payer Benefit Subscriber ID Type Phone Address Plan / Group MEDICARE MEDICARE A xxxxxxxxxxx Medicare B MCR SUPPLEMENT/INDIVIDUAL AARP/UNITE xxxxxxxxxxx [facility] Advance Directives For more information, please contact: [facility] [address] [place] [address] Date Inactivated Comments Code Status [...]
--- NOTE | 2019-03-11 23:45 | NUR ---
Arrived to unit via stretcher with son John at side. Transferred to bed. Oriented to environment and call light. Will continue to monitor. Bed alarm on and working, education on bed alarm to maintain safety and prevent falls.
[2019-03-12] VITALS (9 sets, daily range): BP systolic 112–148; BP diastolic 58–90
--- NOTE | 2019-03-12 00:20 | NUR ---
Patient complaining of pain to chest and legs. Noted that patient is restless and anxious. Son reports that patient has chronic pain and takes norco 5/325 mg po Q 6 hrs PRN and lorazepam 2 mg po Q HS PRN for anxiety. Informed son that medications have not been resumed but would call MD to see if we can resume home medications.
[2019-03-12] MEDS ORDERED: HYDROCODONE/APAP 5MG-325MG TAB PO PRN ×2 (00:30→00:45)
--- NOTE | 2019-03-12 00:30 | NUR ---
Called Dr Galan and informed that patient complaining of pain to chest and legs. Noted that patient is restless and anxious. Son reports that patient has chronic pain and takes norco 5/325 mg po Q 6 hrs PRN and lorazepam 2 mg po Q HS PRN for anxiety. May resume norco 5/325 mg po Q 6 hrs PRN and lorazepam 2 mg po Q HS for anxiety.
--- NOTE | 2019-03-12 00:40 | NUR ---
Went to room. Son stated that gave patient some water and patient vomited and dry heaving. Will check if has any medication for nausea.
[2019-03-12] MEDS ORDERED: ONDANSETRON HCL INJ 2MG/ML 2ML 2 MG/ML VIAL IV PRN (00:45)
--- NOTE | 2019-03-12 00:45 | NUR ---
Called Dr Galan patient vomiting and dry heaving. No medication for nausea. New order Zofran 4 mg IV Q 6 hrs PRN nausea/vomiting.
[2019-03-12] MEDS: LORAZEPAM 1 MG TAB PO PRN ×2 (01:17→20:48)
[2019-03-12] MEDS: HYDROCODONE/APAP 5MG-325MG TAB PO PRN ×4 (04:21→19:27)
--- NOTE | 2019-03-12 06:00 | NUR ---
Patient resting, eyes closed, resp even and unlabored. Call light within reach. Bed alarm on and working. Will continue to monitor.
--- NOTE | 2019-03-12 06:47 | NUR ---
Notified Dr Lara of new consult by Dr Galan for new onset seizures, was witnessed by daughter at nursing facility. New order: MRI brain without contrast. EEG. Informed that Dr Galan put in new order for EEG.
--- NOTE | 2019-03-12 07:30 | NUR ---
Patient is resting in bed in NAD. She is sleepy but easily arouses. Bed alram on for safety, bed in lowest position, locked and call ahn within reach.
[2019-03-12 09:15] LABS: INR 1.73; PROTHROMBIN TIME 20.9 seconds (11.9-14.5)
[2019-03-12] MEDS: POTASSIUM CHLORIDE 20 MEQ TAB CR PO SCH (09:31)
[2019-03-12] MEDS: PANTOPRAZOLE SOD 40 MG TABEC PO SCH ×2 (09:31→17:28)
[2019-03-12] MEDS: ATENOLOL 50 MG TAB PO SCH (09:32)
[2019-03-12] MEDS: LISINOPRIL 10 MG TAB PO SCH ×2 (12:22→17:29)
[2019-03-12] MEDS: FUROSEMIDE 40 MG TAB PO SCH (12:22)
--- NOTE | 2019-03-12 13:12 | History and Physical ---
REASON FOR ADMISSION: The patient is an 88-year-old female, who comes in with apparent seizure-like activities. HISTORY OF PRESENTING ILLNESS: Mrs. Leni Matamoros was transferred to a SNF facility earlier this month for urinary tract infection, debility. The patient was accepted to SNF. The patient is currently back in hospital because yesterday there was a visualized tonic-clonic activity by the daughter, lasted for about 2-4 minutes and the patient was transferred here to the emergency room. PAST MEDICAL HISTORY: History of congestive heart failure, history of hypothyroidism, history of hyperlipidemia, history of atrial fibrillation, history of chronic pain, and also history of osteoarthritis. The patient's other history includes rheumatoid arthritis. The patient also has had multiple urinary tract infection and also history of right patella fracture. MEDICATIONS: Medicines she takes at home are atenolol 50 mg once a day, furosemide 40 mg daily, hydrocodone Gibson 5/325 q.6 hours as needed, levothyroxine 100 mcg daily, lisinopril 10 mg twice a day, lorazepam 2 mg at nighttime, pantoprazole 40 mg, potassium chloride 20 mEq, simvastatin 20, warfarin 3 mg daily. The patient currently is on Ativan and hydrocodone. PAST SURGICAL HISTORY: History of cholecystectomy, appendectomy, and the patient has three stents. REVIEW OF SYSTEMS: The patient is groggy, but no chest pain according to family, no shortness of breath. No nausea, vomiting, diarrhea. No constipation or rectal bleeding. No hematochezia. No hematemesis. Positive for extreme fatigue. SOCIAL HISTORY: No EtOH. No IV drug abuse. Lived by herself prior to the admission to the hospital. ALLERGIES: SHE IS ALLERGIC TO SULFA AND CIPROFLOXACIN. PHYSICAL EXAMINATION: VITAL SIGNS: Temperature is 97.0, pulse of 85, respirations of 16, blood pressure is 148/90, and pulse oximetry of 99%. HEENT: Normocephalic, atraumatic. Pupils are equal and reactive to light and accommodation. CVS: S1, S2 regular. ABDOMEN: Nontender, nondistended. EXTREMITIES: No clubbing, no cyanosis. Trace edema. NEUROLOGICAL: Weak, fatigued. Responds to verbal stimuli. Motor strength is normal. Sensory deficits none appreciated. LABORATORY VALUES: White count is 6.69, hemoglobin of 11.6, hematocrit of 34.9. Chemistry; sodium of 136, potassium of 3.4, BUN of 17, creatinine of 0.83, glucose of 136. Urine positive for white blood 6-10 and urine blood of 2 positive. 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 Chest x-ray shows no acute bony abnormality, stable enlargement of the cardiac silhouette. ASSESSMENT: 1. Seizure-like activity. 2. Encephalopathy. 3. Chronic pain syndrome. 4. Osteoarthritis. 5. Atrial fibrillation. 6. Chronic urinary tract infections. 7. Hypertension. 8. Coronary artery disease. PLAN: Plan is to do an EEG. Consult Dr. Lara. We will continue monitoring her vitals and also her laboratory values. Further recommendation and clinical course, if EEG is negative, the patient can be transferred back to the skilled nursing. Debility is in continuum and the patient also has signs of dementia. May need further care depending on neurological assessment by Dr. Lara. We will continue to monitor the patient. MD DEISY Aly/MODL /[id number]
--- NOTE | 2019-03-12 13:50 | NUR ---
Visit made by the Spiritual Care Department Pastoral Visitor, Riya Chapman. Pt sleeping soundly and no family present. Pastoral Visitor left a card describing availability of plastics repairer and instructions on how to contact a plastics repairer. SCOTTY MARCIAL Press Assistant And Feeder Spiritual Care Department O: [phone] Pager: [phone] ([phone] number calling from)
--- NOTE | 2019-03-12 15:30 | NUR ---
Patient off unit to MRI
--- NOTE | 2019-03-12 16:15 | NUR ---
Patient was unable to finish MRI, even with family at the bedside. She stated. "I can't do it today."
--- NOTE | 2019-03-12 17:05 | NUR ---
Dr. Lara making rounds and aware EEG will be done at 0700 and MRI unfinished.
[2019-03-12] MEDS: WARFARIN SOD 3 MG TAB PO SCH (17:28)
--- NOTE | 2019-03-12 18:58 | Diagnostic Imaging Report ---
Examination: MRI BRAIN WITHOUT CONTRAST History: No onset seizure. Comparison studies: None Technique: Incomplete study with only Sagittal T2 , axial DWI and axial T1. Intravenous contrast: None Findings: Scalp: No abnormal signal. No masses. Bone marrow: Normal in signal intensity. Brain volume: Mild volume loss. Ventricles: No hydrocephalus. Extra-axial spaces: No abnormalities. Parenchyma: There are patchy and confluent areas of T2/FLAIR hyperintensity in the periventricular and subcortical white matter, nonspecific. No area of vasogenic edema, hemorrhage, or acute vascular insults. IMPRESSION: Despite limitation, no acute infarct. Chronic microvascular ischemic change. Signed by: Dr. Alva Bradley M.D. on 03/12/2019 6:54 PM
[2019-03-12] MEDS: POTASSIUM CHLORIDE 10MEQ EA PO SCH (20:48)
[2019-03-12] MEDS: SIMVASTATIN 20 MG TAB PO SCH (20:48)
[2019-03-13] VITALS (8 sets, daily range): BP systolic 112–134; BP diastolic 59–73
--- NOTE | 2019-03-13 01:30 | Consultation ---
DATE OF CONSULTATION: 03/12/2019 Neurology Consult Note HISTORY OF PRESENT ILLNESS: Ms. Matamoros is an 88-year-old right-hand dominant woman with an extensive past medical history, admitted to [facility] on March 11, 2019, with new onset seizure. Unfortunately, Ms. Matamoros has no recollection of the event leading to her hospitalization. Information is provided by her son-in-law, who is at the bedside. At present, Ms. Matamoros is in a rehabilitation facility for evaluation and treatment of chronic pain. On the afternoon of March 11, 2019, the patient's daughter witnessed her to become unresponsive, staring forward with eyes open. Within seconds, the patient's daughter noted quivering of the lower lip as well as stiffening of the whole body with arms in a flexed position and legs extended. There was no reported tongue biting, or bladder or bowel activity. The duration of the previously described activity is unknown. The patient's son-in-law does report a postictal phase lasting approximately 20 to 30 minutes. Ms. Matamoros's daughter alerted her nurse during the episode described above. Emergency Medical Services were notified and the patient was transported to the emergency center at [facility] for further evaluation. Upon arrival in the emergency center, the patient was afebrile with a blood pressure of 143/74 mmHg and a pulse of 85 beats per minute. Documentation of the patient's neurological examination is unavailable for review at this time. A CT of the brain without contrast was performed, while the patient was in the emergency center. There was no evidence of recent large territorial ischemia or hemorrhage on this study. Ms. Matamoros was then admitted to [facility] under observation status for further evaluation and treatment. The patient does not report a history of febrile seizures. There is no known family history of seizures. The patient does not report prior head trauma or meningoencephalitis. Amongst the patient's multiple home medications, is Ativan 2 mg. Ms. Matamoros takes this medication at least once daily. It is unknown if she is receiving the same medication at the rehabilitation facility. REVIEW OF SYSTEMS: Seizure, chronic low back pain. Otherwise, a 12-point review of systems is negative. PAST MEDICAL HISTORY: Hypertension, hyperlipidemia, coronary artery disease, atrial fibrillation, emphysema, thyroid disease, rheumatoid arthritis, multiple prior urinary tract infections, anxiety disorder, and multiple vertebral fractures. PAST SURGICAL HISTORY: Cardiac catheterization with stent placement, appendectomy, and right knee surgery. PAST HOSPITALIZATIONS: Surgeries/procedures as listed, multiple admissions for pain, multiple prior admissions for urinary tract infections, a recent admission with hyponatremia, poor appetite, and decreased oral intake. FAMILY MEDICAL HISTORY: Hypertension and coronary artery disease. SOCIAL HISTORY: Ms. Matamoros is . She is retired. The patient does not report a prior history of tobacco use. However, she does report prolonged exposure to secondhand smoke. There is no reported current or prior alcohol or recreational drug use. HOME MEDICATIONS: Atenolol, furosemide, Antelope, levothyroxine, lisinopril, lorazepam, Protonix, potassium chloride, Zocor, and Coumadin. HOSPITAL MEDICATIONS: Atenolol, furosemide, Antelope, levothyroxine, lisinopril, lorazepam, Zofran, Protonix, potassium chloride, Zocor, and Coumadin. ALLERGIES: SULFA AND CIPROFLOXACIN. NO KNOWN FOOD ALLERGIES. NO KNOWN ALLERGIES TO LATEX. NO KNOWN ALLERGIES TO IODINE OR OTHER CONTRAST MATERIALS. PHYSICAL EXAMINATION: VITAL SIGNS: Height 65 inches, weight 139 pounds, BMI 23.1 kg/m2, blood pressure 115/59 mmHg, pulse 70 beats per minute, respiratory rate 18 breaths per minute, and oxygen saturation 99% on 2 L by nasal cannula. GENERAL: The patient is awake and alert, does not appear distressed. HEENT: Normocephalic, atraumatic. Pupils are equal, round, and reactive to light. Moist mucous membranes. There are bruises on both sides of the tongue, near the tip. NECK: Supple. No appreciable thyromegaly. No appreciable carotid bruits. CARDIOVASCULAR: S1, S2, regular rate, irregular rhythm. No murmurs, rubs, or gallops. RESPIRATORY: Clear to auscultation bilaterally. No wheezes, rhonchi, or rales. EXTREMITIES: The skin is warm and dry. No clubbing, cyanosis, or edema. The posterior tibial and dorsalis pedis pulses are 2+ and symmetric. SKIN: Multiple ecchymoses over the arms and legs. NEUROLOGIC: Memory/Attention: The patient is awake and alert, oriented to person only. Cranial Nerves: Cranial nerve I - not tested. Cranial nerves II, III, IV, and - pupils are equal and round, react briskly to light (from 4 mm to 2 mm). Extraocular movements intact. No nystagmus. Cranial nerve V - sensation to light touch is intact in the bilateral V1 through V3 distributions. Strength of the temporalis and masseter muscles are within normal limits. Cranial nerve VII - the face is symmetric as are all facial movements. Strength is within normal limits. Cranial nerve VIII - hearing is intact to finger rub bilaterally. Cranial nerves IX, X - the soft palate elevates equally and symmetrically. Cranial nerve XI - normal strength of the bilateral sternocleidomastoid and trapezius muscles. Cranial nerve XII - the tongue protrudes midline and moves symmetrically from [id number]. Strength: Bulk is normal. Strength is 5/5 in the bilateral deltoids, biceps, triceps, wrist flexors and extensors, finger flexors and extensors, intrinsic hand muscles, hip flexors, knee flexors and extensors, ankle dorsiflexion and plantar flexion, and intrinsic foot muscles. Tone is normal. DTRs: Deep tendon reflexes are 1+ and symmetric at the triceps, biceps, and brachioradialis. Deep tendon reflexes are absent and symmetric at the patellas and Achilles. Plantar responses are flexor bilaterally. Sensation: Sensation is intact to light touch in both arms and both legs. Cerebellar: [id number] and heel-mcnally movements are intact without dysmetria or other impairment. Gait: Deferred. Speech: Spontaneous speech is normal without appreciable dysarthria or aphasia. Repetition is intact. Involuntary Movements: None. Pronator Drift: None. LABORATORY DATA: A comprehensive metabolic panel is significant for potassium of 3.4, anion gap of 17.4, glucose of 136, and alkaline phosphatase of 28. Cardiac enzymes are negative x1. The CBC with differential and platelets reveals a white blood cell count of 6.69 with a normal differential. The hemoglobin and hematocrit are 11.6 and 34.9, respectively. The platelet count is 219. PT 20.9, INR 1.73. A urinalysis revealed hazy urine with a specific gravity of 1.030, trace protein, 2+ blood, 11-20 red blood cells, and 6-10 white blood cells. DIAGNOSTIC STUDIES: Electrocardiogram on 03/11/2019: Atrial fibrillation at 85 beats per minute. Chest x-ray on 03/11/2019: 1. Lines and tubes: None. 2. Lungs are well inflated. Prominence of the interstitial markings bilaterally, which is similar to prior exam, suspicious for bilateral interstitial pulmonary edema. No consolidation or pleural effusion. Stable elevation of the right hemidiaphragm. 3. Stable enlargement of the cardiac silhouette. Central pulmonary venous congestion. Tortuous aorta. Stable rightward deviation of the trachea, likely due to prominent aortic arch. 4. No acute bony abnormalities. Mild osteopenia. CT of the brain without contrast on 03/11/2019: On my review, there is no evidence of recent large territorial ischemia, hemorrhage, mass, or mass effect. A lacunar infarct is observed in the right frontal walton radiata/caudate nucleus and is chronic. There is mild diffuse cerebral atrophy with compensatory dilatation of the ventricles, probably appropriate for the patient's age. Their findings compatible with moderate to severe chronic small vessel ischemic disease. ASSESSMENT AND PLAN: Ms. Matamoros is an 88-year-old right-hand dominant woman with an extensive past medical history as detailed, admitted to [facility] on March 11, 2019, following a single generalized tonic colonic seizure. At present, the patient's neurological examination is nonfocal. Her laboratory data and other diagnostic studies have been reviewed and are documented above. Ms. Matamoros did have a seizure as described in the history of present illness. As noted in the history of present illness as well, the patient takes Ativan 2 mg at least once per day. I am concerned this medication was not continued at the rehabilitation facility, and Ms. Matamoros experienced a seizure due to withdrawal from benzodiazepines. Another possible diagnosis would be a secondary seizure disorder. Given the patient's age and medical history, it is unlikely she has a primary epilepsy. RECOMMENDATIONS: Are as follows: 1. An MRI of the brain without contrast was attempted, but could not be completed today. On my review of the limited images available, did not appear to be evidence of recent ischemia. No gross structural abnormality was appreciated. There were scattered confluent T2/FLAIR hyperintense foci in the supratentorial and infratentorial deep white matter compatible with moderate chronic small vessel ischemic disease. The importance of obtaining an MRI of the brain without contrast was discussed with Ms. Matamoros. Performing the study under minimally conscious sedation was discussed with the patient and her son-in-law as well. Ms. Matamoros insists she will be able to undergo the MRI of the brain without contrast without sedation tomorrow, 03/13/2019. 2. A routine EEG has been ordered and is pending. 3. The patient's son-in-law will obtain a list of medications being administered at the rehabilitation facility to see if the patient was receiving her daily dose of Ativan. 4. Defer treatment of the remaining medical comorbidities to the primary and other services following the patient. Thank you for this consultation. I will continue to follow the patient, while she remains in the hospital. TIME SPENT: 50 minutes. Connie Lara MD CP/MODL /[id number] MTDD
[2019-03-13] MEDS: LEVOTHYROXINE SODIUM 100 MCG TAB PO SCH (05:54)
[2019-03-13] MEDS: HYDROCODONE/APAP 5MG-325MG TAB PO PRN ×2 (05:55→19:35)
[2019-03-13] MEDS ORDERED: DIAZEPAM 5 MG TAB PO PRN (07:30)
--- NOTE | 2019-03-13 08:34 | NUR ---
EEG COMPLETED AT BEDSIDE
[2019-03-13 09:48] LABS: INR 1.57; PROTHROMBIN TIME 19.4 seconds (11.9-14.5)
[2019-03-13] MEDS: PANTOPRAZOLE SOD 40 MG TABEC PO SCH ×2 (10:14→16:35)
[2019-03-13] MEDS: POTASSIUM CHLORIDE 20 MEQ TAB CR PO SCH (10:14)
[2019-03-13] MEDS: FUROSEMIDE 40 MG TAB PO SCH (10:14)
[2019-03-13] MEDS: LISINOPRIL 10 MG TAB PO SCH ×2 (10:15→16:36)
[2019-03-13] MEDS: ATENOLOL 50 MG TAB PO SCH (10:15)
[2019-03-13] MEDS ORDERED: DIAZEPAM 5 MG TAB PO ONE (16:30)
[2019-03-13] MEDS ORDERED: DIAZEPAM 2 MG TAB PO ONE (16:30)
[2019-03-13] MEDS: WARFARIN SOD 3 MG TAB PO SCH (16:35)
[2019-03-13] MEDS: POTASSIUM CHLORIDE 10MEQ EA PO SCH (20:11)
[2019-03-13] MEDS: SIMVASTATIN 20 MG TAB PO SCH (20:11)
--- NOTE | 2019-03-13 20:19 | Diagnostic Imaging Report ---
History: seizures Comparison studies: Head CT on 03/11/2019 Brain MRI without contrast on 03/12/2019 Technique: Pre-contrast: Sagittal T1; axial T1-IR, MPGR, DWI, FLAIR; Thin section coronals of the temporal lobes: FLAIR, T2. Findings: Scalp: No abnormal signal. No masses. Bone marrow: Normal in signal intensity. Brain sulci: Mildly prominent. Ventricles: Mild compensatory dilatation. No hydrocephalus. Parenchyma: Confluent T2 FLAIR hyperintense foci along the margins of the lateral ventricles are nonspecific. No masses, hemorrhage, acute or chronic vascular insults. No cortical migration anomalies. Medial temporal lobes: Hippocampi: Mildly atrophic but symmetric and normal in signal. Suprasellar/sellar region: No abnormalities. Craniocervical junction: Patent foramen magnum. No Chiari one malformation. Vessels: Normal flow-voids in the arteries and sinuses. Calcification/iron: No abnormal deposits. Incidental peripheral mucosal thickening in the left maxillary sinus. Extensive calcifications of the carotid siphons, vertebral and basilar arteries are better visualized on the head CT on 03/11/2019. IMPRESSION: 1. No acute abnormalities. 2. No changes compared to the limited brain MRI on 03/12/2019. Chronic findings: 1. Mild generalized volume loss. 2. Mildly dilated ventricular system associated with the T2 FLAIR hyperintense signal along the margins of the ventricle but no acute hydrocephalus. Consider normal pressure hydrocephalus in the appropriate clinical setting. Signed by: Dr. Javier Granados M.D. on 03/13/2019 8:15 PM
[2019-03-13] MEDS: LORAZEPAM 1 MG TAB PO PRN (21:20)
--- NOTE | 2019-03-13 21:40 | Electroencephalogram ---
DATE OF STUDY: 03/13/2019 REQUESTING PHYSICIAN: REQUESTING PHYSICIAN: Connie Lara MD. PATIENT HISTORY: This 88-year-old woman with a history of a single witnessed generalized tonic-clonic seizure is having an EEG for evaluation of epileptiform activity. The patient is not taking any medications which might affect the EEG. TECHNIQUE: This is a routine, portable EEG, recorded digitally, using the International 10/20 electrode placement system, and done in the inpatient setting with the patient awake. The EEG is adequate for interpretation. DESCRIPTION: Well-organized, well-sustained, 9-10 hertz activity is best seen symmetrically over the posterior head regions. No focal or epileptiform activity is recorded. Sleep is not recorded. Photic stimulation does produce a driving response. Hyperventilation is not performed. INTERPRETATION: This EEG is normal with the patient awake. No epileptiform discharges are seen. Clinical correlation is recommended. Connie Lara MD CP/MODL /[id number] MTDD
--- NOTE | 2019-03-13 21:51 | Progress Note ---
DATE: SUBJECTIVE: The patient is 88-year-old female, who comes in with seizure. The patient is pending and awaiting her EMG results. MRI results are pending too. Currently, the patient is very lethargic, weak and unable to eat anything of substance. Currently on atenolol, Lasix, lisinopril, lorazepam, pantoprazole, potassium chloride, simvastatin, warfarin. PHYSICAL EXAMINATION: VITAL SIGNS: Temperature is 96.9, pulse of 72, respirations of 15, blood pressure is 121/73. HEENT: Normocephalic, atraumatic. Pupils are reactive to light and accommodation. CVS: Irregular. ABDOMEN: Nontender and nondistended. EXTREMITIES: No clubbing. No cyanosis. Positive for edema. The patient is very frail appearing. LABORATORY VALUES: The patient's white count is 6.69, hemoglobin 11.6, hematocrit of 34.9. Chemistries; sodium 136, potassium is 3.4, BUN 17, creatinine of 0.83. Coags are normal warfarin. MICROBIOLOGY: None. IMAGING STUDIES: Brain MRI is pending at this time. ASSESSMENT: 1. Seizure activity. The patient is pending EEG and MRI of the brain. Dr. Lara is on consult. 2. Atrial fibrillation. Continue with anticoagulation. PT, INRs to be done daily. 3. Debility. The patient needs continuum of physical therapy. 4. History of usage of benzodiazepine and also pain medication. PLAN: We will continue with medications at this time. Decreased availability might have led to withdrawal which led on to seizure. We will continue to monitor the patient. Further recommendation per clinical course. We will continue talking with Neurology for the progress of this patient. MD STAN AlyJ/MODL /[id number]
[2019-03-14] VITALS (8 sets, daily range): BP systolic 107–145; BP diastolic 62–92
--- NOTE | 2019-03-14 03:30 | NUR ---
PATIENT RESTING COMFORTABLY UPON ROUNDS, NO SIGNS OF DISTRESS NOTED. CALL LIGHT WITHIN REACH WILL CONTINUE TO MONITOR.
[2019-03-14] MEDS: LEVOTHYROXINE SODIUM 100 MCG TAB PO SCH (05:37)
[2019-03-14] MEDS: HYDROCODONE/APAP 5MG-325MG TAB PO PRN (05:37)
[2019-03-14 05:40] LABS: BASOPHILS % 0.5 % (0.0-1.0); EOSINOPHILS # (AUTO) 0.1 (0.0-0.4); EOSINOPHILS % 3.8 % (0.0-6.0); HEMATOCRIT 34.7 % (34.2-44.1); LYMPHOCYTES % 27.3 % (18.0-39.1); MEAN CORPUSCULAR HEMOGLOBIN 31.5 pg (28-32); MEAN CORPUSCULAR HGB CONC 31.7 g/dL (31-35); MEAN CORPUSCULAR VOLUME 99.4 fL (81-99); MONOCYTES # (AUTO) 0.8 (0.2-0.8); MONOCYTES % 20.5 % (4.4-11.3); NEUTROPHILS # (AUTO) 1.7 (2.1-6.9); NEUTROPHILS % 47.6 % (38.7-80.0); PLATELET COUNT 204 x10e3/uL (140-360); RED BLOOD COUNT 3.49 x10e6/uL (3.6-5.1); RED CELL DISTRIBUTION WIDTH 15.8 % (11.7-14.4)
[2019-03-14 05:58] LABS: INR 1.94; PROTHROMBIN TIME 22.8 seconds (11.9-14.5)
[2019-03-14 06:12] LABS: ANION GAP 10.9 mmol/L (8-16); CALCIUM 9.2 mg/dL (8.4-10.2); CREATININE, SERUM 0.95 mg/dL (0.57-1.11); POTASSIUM 3.9 mmol/L (3.5-5.1)
[2019-03-14] MEDS: POTASSIUM CHLORIDE 20 MEQ TAB CR PO SCH (09:10)
[2019-03-14] MEDS: LISINOPRIL 10 MG TAB PO SCH (09:10)
[2019-03-14] MEDS: PANTOPRAZOLE SOD 40 MG TABEC PO SCH (09:10)
[2019-03-14] MEDS: FUROSEMIDE 40 MG TAB PO SCH (09:10)
[2019-03-14] MEDS: ATENOLOL 50 MG TAB PO SCH (09:11)
--- NOTE | 2019-03-14 09:16 | NUR ---
SPOKE WITH DAUGHTER WHOM IS FRUSTRATED, PT CAME FROM [facility] FROM REHAB AND WILL MOST LIKELY RETURN THERE UPON DISCHARGE, SHE STATES THEY ARE UNABLE TO MANAGE HER PAIN THERE. SHE STATES THAT THE DOCTOR HAS MENTIONED HOSPICE AND REFERRED HER TO HIS COMPANY BUT SHE STATES THE COMPANY WAS NOT VERY FRIENDLY. SHE STATES SHE HAS AN APPOINTMENT WITH HER DOCTOR TODAY AT 12 AND WITH [employer] HANNA GONSALEZ AT 3 PM TODAY. SHE WILL BE SPEAKING WITH THEM ABOUT APPLYING FOR MEDICAID AND THE DIFFERENT PLACEMENT OPTIONS THEY RECOMMEND.
--- NOTE | 2019-03-14 19:15 | Progress Note ---
DATE: SUBJECTIVE: The patient is an 88-year-old female, who comes in with seizure disorder. The patient's EEG was negative. CT was negative. MRI was negative. The patient is doing fine. No seizure activity. No shortness of breath. No chest pain. No history of nausea or vomiting either. The patient is currently asymptomatic, is usually arousable and can talk too easily to. MEDICATIONS: 1. Atenolol. 2. Furosemide. 3. Hydrocodone. 4. Levothyroxine. 5. Lisinopril. 6. Lorazepam. 7. Pantoprazole. 8. Potassium. 9. Simvastatin. 10. Warfarin. OBJECTIVE: VITAL SIGNS: Temperature is 98.3, 73 of pulse, respirations of 20, blood pressure is 115/65, and the patient's pulse oximeter 97%. HEENT: Normocephalic, atraumatic. Pupils are reactive to light and accommodation. CVS: S1 and S2 normal. Regular rate and rhythm. ABDOMEN: Nontender and nondistended. EXTREMITIES: No clubbing, no cyanosis, no edema. LABORATORY DATA: The patient's hemoglobin is 11.0 and hematocrit of 34.7. Chemistry; sodium 136, potassium 3.9, BUN of 20, creatinine of 0.95. INR is 1.96. MICROBIOLOGY: None. ASSESSMENT AND PLAN: 1. Seizure activity. The patient's EEG is negative, so no seizures. 2. Atrial fibrillation. Continue with anticoagulation. 3. Debility. Continue with Physical Therapy. The patient can be discharged home or back to the retirement facility. 4. History of usage of benzodiazepine and pain medication. 5. 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 DISPOSITION: Can be discharged to an appropriate setting. Further recommendation per clinical course. We will talk to case management on discharge planning. MD STAN AlyJ/MODL /[id number]
== END 2019-03-14 18:36 ==
LOC: ER 20:22 → ERHOLD 23:34 → IMCU 23:47
PROVIDERS: ADMIT Family Medicine; ATTEND Family Medicine
DX: R56.9 Unspecified convulsions (principal); G92 Toxic encephalopathy; T42.4X6A Underdosing of benzodiazepines, initial encounter; I11.0 Hypertensive heart disease with heart failure; I50.9 Heart failure, unspecified; I48.91 Unspecified atrial fibrillation; E03.9 Hypothyroidism, unspecified; E78.5 Hyperlipidemia, unspecified; M19.90 Unspecified osteoarthritis, unspecified site; M06.9 Rheumatoid arthritis, unspecified; Z87.440 Personal history of urinary (tract) infections; Z88.1 Allergy status to other antibiotic agents; Z88.2 Allergy status to sulfonamides; Z90.49 Acquired absence of other specified parts of digestive tract; G89.4 Chronic pain syndrome; I25.10 Atherosclerotic heart disease of native coronary artery without angina pectoris; R53.81 Other malaise; F19.930 Other psychoactive substance use, unspecified with withdrawal, uncomplicated
CPT/HCPCS: 36415 ×4; 70450; 70551 ×2; 71045; 80048; 80053; 81001; 82550; 82553; 84484; 85025 ×2; 85610 ×3; 93005; 95812 ×2; 99285; G0378 ×4; J2405; S0164 ×3